=== PATIENT | male | born 1940 | race African-American/Black ===

== ENCOUNTER 2020-04-11 09:16 | Inpatient (IN) ==
[2020-04-11] MEDS ORDERED: ASPIRIN 325 MG TABLET PO STA (09:47)
[2020-04-11] MEDS ORDERED: carvediloL 3.125 MG TABLET PO STA (09:58)
[2020-04-11 10:29] LABS: Basophils % 0.1 % (0.0-0.8); Hematocrit 36.9 VOL% (42.0-52.0); Hemoglobin 11.3 GM/DL (14.0-18.0); Immature Granulocytes % 1.3 %; Immature Granulocytes Absolute 0.11 #; Lymphocytes # 0.5 10*3/uL (1.4-4.0); Lymphocytes % 5.3 % (21.2-54.2); Mean Corpuscular HGB Conc 30.6 GM/DL (32-36); Mean Corpuscular Volume 93.7 FL (87-102); Mean Platelet Volume 9.2 FL (9.6-12.0); Monocytes % 1.1 % (1.7-12.7); Neutrophils % 92.2 % (38.7-73.9); Platelet Count 224 T/CUMM (130-400); Red Blood Count 3.94 MC/CUMM (3.8-5.5); Red Cell Distribution Width 14.6 % (9.3-17.3); White Blood Count 8.5 T/CUMM (4-12)
[2020-04-11 10:55] LABS: Calcium 9.1 MG/DL (8.5-10.1); Osmolality,Calculated 280.4 MOS/KG (273-304)
[2020-04-11] MEDS ORDERED: SODIUM CHLORIDE 0.9% 500 ML IV STA ×2 (11:03→11:41)
[2020-04-11] MEDS ORDERED: CALCIUM GLUCONATE 1,000 MG in SODIUM CHLORIDE 0.9% 100 ML IV ONE ×2 (11:04→16:00)
[2020-04-11 11:10] LABS: Band Neutrophils 3 % (0-10); Hypochromasia 1+; Lymphocytes 6 % (20-55); Metamyelocytes 2 %; Segmented Neutrophils 88 % (50-85); Total Cells Counted 100
[2020-04-11 11:11] LABS: Microcytosis Slight; Platelet Estimate Normal
[2020-04-11] MEDS ORDERED: GLUCAGON 1 MG VIAL IM PRN (11:16)
[2020-04-11] MEDS ORDERED: DEXTROSE 50% 25 GM/50 ML VIAL IV PRN (11:16)
[2020-04-11 11:29] LABS: INR 1.2; PT Patient Result 13.2 SECS (9.8-11.9)
[2020-04-11] MEDS ORDERED: NITROGLYCERIN SL 0.4 MG TABLET SL PRN (11:41)
[2020-04-11] MEDS: ENOXAPARIN 30 MG/0.3 ML SYRINGE SUBCUT SCH (13:10)
[2020-04-11] MEDS ORDERED: NOREPINEPHRINE 4 MG/4 ML VIAL IV ONE ×2 (13:18→13:23)
[2020-04-11] MEDS: NOREPINEPHRINE 8 MG in SODIUM CHLORIDE 0.9% 242 ML IV PRN ×2 (13:40→23:25)
[2020-04-11 14:02] LABS: Osmolality,Calculated 278.2 MOS/KG (273-304)
[2020-04-11] MEDS: INSULIN REGULAR 100 UNIT/ML SUBCUT SCH ×3 (14:13→22:37)
[2020-04-11] MEDS: LEVOFLOXACIN INJ 500 MG in PREMIX 1 EACH IV SCH (18:43)
[2020-04-11] MEDS ORDERED: metFORMIN 500 MG TABLET PO SCH (21:00)
[2020-04-11] MEDS: DOCUSATE SODIUM 100 MG CAPSULE PO SCH (22:37)
[2020-04-12 00:50] LABS: Apearance,Urine CLOUDY (Clear); Bacteria,Urine Occasional /HPF (Few); Bilirubin,Urine Negative (Negative); Blood, Urine Moderate mg/dL (Negative); Glucose,Urine (UA) Negative (Negative); Granular Casts,Urine 4 /LPF (0-1); Hyaline Casts,Urine 4 /LPF (0-3); Ketones,Urine Negative (Negative); Mucus,Urine Occasional /LPF (Occasional); Nitrite,Urine Negative (Negative); Protein,Urine 30 MG/DL; RBC,Urine 4 /HPF (0-4); Red Blood Cell Casts,Urine 1 /LPF (<1); Squamous Epithelial Cell,Urine Occasional /HPF (0-10); Urine Color Yellow (Yellow); WBC,Urine 36 /HPF (0-6)
[2020-04-12 03:16] LABS: Basophils % 0.1 % (0.0-0.8); Hematocrit 28.5 VOL% (42.0-52.0); Immature Granulocytes Absolute 1.36 #; Lymphocytes % 3.6 % (21.2-54.2); Mean Corpuscular HGB Conc 32.6 GM/DL (32-36); Mean Corpuscular Volume 90.8 FL (87-102); Mean Platelet Volume 9.8 FL (9.6-12.0); Monocytes % 5.9 % (1.7-12.7); Neutrophils % 85.4 % (38.7-73.9); Platelet Count 192 T/CUMM (130-400); Red Blood Count 3.14 MC/CUMM (3.8-5.5); Red Cell Distribution Width 14.6 % (9.3-17.3)
[2020-04-12 03:21] LABS: Albumin 2.1 G/DL (3.4-5.0); Bilirubin,Total 1.5 MG/DL (0.2-1.0); Calcium 8.6 MG/DL (8.5-10.1); Osmolality,Calculated 289.7 MOS/KG (273-304); Risk Ratio 1.72; Total Protein 7.2 G/DL (6.4-8.3); VLDL CHOLESTEROL 13.4 MG/DL
[2020-04-12 03:25] LABS: Hemoglobin 9.3 GM/DL (14.0-18.0)
[2020-04-12 04:43] LABS: Barbiturates Screen,Urine Negative (Negative); Benzodiazepines Screen,Urine Negative (Negative); Cannabinoid Screen,Urine Negative (Negative); Opiate Screen,Urine Negative (Negative); Phencyclidine Screen,Urine Negative (Negative)
[2020-04-12 05:17] LABS: Atypical Lymphocytes Few; Band Neutrophils 7 % (0-10); Lymphocytes 6 % (20-55); Metamyelocytes 1 %; Segmented Neutrophils 82 % (50-85); Total Cells Counted 100
[2020-04-12 05:18] LABS: Hypochromasia 1+; Microcytosis Slight; Ovalocytes Slight; Platelet Estimate Adequate
[2020-04-12] MEDS: DOCUSATE SODIUM 100 MG CAPSULE PO SCH ×2 (11:05→20:04)
[2020-04-12] MEDS: GLIMEPIRIDE 2 MG TABLET PO SCH (11:05)
[2020-04-12] MEDS: carvediloL 6.25 MG TABLET PO SCH (11:05)
[2020-04-12] MEDS: ASPIRIN CHEW 81 MG TABLET PO SCH (11:05)
[2020-04-12] MEDS: TAMSULOSIN 0.4 MG CAPSULE PO SCH (11:06)
[2020-04-12] MEDS: PANTOPRAZOLE 40 MG TABLET PO SCH (11:07)
[2020-04-12] MEDS: hydroCHLOROthiazide 12.5 MG CAPSULE PO SCH (11:07)
[2020-04-12] MEDS: ATORVASTATIN 10 MG TABLET PO SCH (11:07)
[2020-04-12] MEDS: INSULIN REGULAR 100 UNIT/ML SUBCUT SCH ×3 (12:04→20:04)
[2020-04-12] MEDS ORDERED: SODIUM CHLORIDE 0.9% 500 ML IV ONE (13:00)
[2020-04-12] MEDS ORDERED: SODIUM CHLORIDE 0.9% 500 ML IV STA (14:11)
[2020-04-12] MEDS ORDERED: VANCOMYCIN INJ 1,500 MG in SODIUM CHLORIDE 0.9% 500 ML IV PRN (14:27)
[2020-04-12] MEDS: ENOXAPARIN 30 MG/0.3 ML SYRINGE SUBCUT SCH (14:55)
[2020-04-12] MEDS ORDERED: VANCOMYCIN INJ 1,500 MG in SODIUM CHLORIDE 0.9% 500 ML IV ONE (15:00)
[2020-04-12] MEDS: SODIUM CHLORIDE 0.9% 1,000 ML IV SCH (15:14)
[2020-04-12] MEDS: MEROPENEM 500 MG in SODIUM CHLORIDE 0.9% 100 ML IV SCH (19:35)
[2020-04-12] MEDS ORDERED: DEXTROSE 10% 250 ML IV ONE (19:37)
[2020-04-12] MEDS: ONDANSETRON 4 MG/2 ML VIAL IV PRN (20:05)
[2020-04-12] MEDS: PROMETHAZINE 25 MG/1 ML VIAL IM PRN (21:10)
[2020-04-13] MEDS: PROMETHAZINE 25 MG/1 ML VIAL IM PRN (03:37)
[2020-04-13] MEDS: ONDANSETRON 4 MG/2 ML VIAL IV PRN (03:37)
[2020-04-13] MEDS ORDERED: ALBUTEROL 2.5 MG/3 ML NEB RESP TX ONE ×2 (03:49→03:51)
[2020-04-13] MEDS ORDERED: MORPHINE 4 MG/1 ML VIAL IV ONE (04:00)
[2020-04-13] MEDS ORDERED: FUROSEMIDE 40 MG/4 ML VIAL IV ONE (04:00)
[2020-04-13] MEDS ORDERED: MORPHINE 4 MG/1 ML VIAL ONE (04:01)
[2020-04-13] MEDS ORDERED: FUROSEMIDE 40 MG/4 ML VIAL ONE (04:01)
[2020-04-13] MEDS: MEROPENEM 500 MG in SODIUM CHLORIDE 0.9% 100 ML IV SCH ×3 (04:23→20:20)
[2020-04-13 05:58] LABS: Calcium 8.4 MG/DL (8.5-10.1); Osmolality,Calculated 294.5 MOS/KG (273-304)
[2020-04-13 06:03] LABS: Calcium 8.4 MG/DL (8.5-10.1); Osmolality,Calculated 290.8 MOS/KG (273-304)
[2020-04-13] MEDS ORDERED: BISACODYL 10 MG SUPP RECTAL ONE (09:12)
[2020-04-13] MEDS: INSULIN REGULAR 100 UNIT/ML SUBCUT SCH ×4 (09:51→20:32)
[2020-04-13] MEDS: hydroCHLOROthiazide 12.5 MG CAPSULE PO SCH (09:52)
[2020-04-13] MEDS: SODIUM CHLORIDE 0.9% 1,000 ML IV SCH ×2 (11:05→14:40)
[2020-04-13 11:37] LABS: ABG Base Excess -2.9 MMOL/L (-2.5-2.5); ABG HCO3 19.9 MMOL/L (20-26); ABG Oxygen Saturation 99.1 % (95-100); ABG PCO2 27.4 MM HG (35-48); ABG PH 7.478 (7.35-7.45); ABG PO2 371.7 MM HG (80-95); ABG TCO2 20.7 MMOL/L (23-27)
[2020-04-13] MEDS ORDERED: NOREPINEPHRINE 4 MG/4 ML VIAL IV ONE (12:56)
[2020-04-13] MEDS: NOREPINEPHRINE 8 MG in SODIUM CHLORIDE 0.9% 242 ML IV PRN ×2 (13:01→20:28)
[2020-04-13] MEDS ORDERED: SODIUM CHLORIDE 0.9% 1,000 ML IV ONE (13:01)
[2020-04-13] MEDS ORDERED: ETOMIDATE 20 MG/10 ML VIAL IV ONE ×2 (13:44→17:00)
[2020-04-13] MEDS ORDERED: SUCCINYLCHOLINE 200 MG/10 ML VIAL ONE (13:45)
[2020-04-13 13:58] LABS: INR 1.2; PT Patient Result 12.4 SECS (9.8-11.9); Partial Thromboplastin Time 32.1 SECS (23.9-33.8)
[2020-04-13 14:11] LABS: Albumin 1.8 G/DL (3.4-5.0); Bilirubin,Total 0.8 MG/DL (0.2-1.0); Osmolality,Calculated 292.7 MOS/KG (273-304); Total Protein 5.6 G/DL (6.4-8.3)
[2020-04-13] MEDS ORDERED: MAGNESIUM SULF RIDER 2 GM in PREMIX 1 EACH IV ONE (14:43)
[2020-04-13] MEDS ORDERED: SEVOFLURANE 1 UNIT/15 MINUTE INH ONE (15:55)
[2020-04-13] MEDS ORDERED: fentaNYL 100 MCG/2 ML VIAL ONE (15:55)
[2020-04-13] MEDS ORDERED: PHENYLEPHRINE 10 MG/1 ML VIAL IV ONE (15:55)
[2020-04-13] MEDS ORDERED: LIDOCAINE 2% 5 ML VIAL ONE (15:55)
[2020-04-13] MEDS ORDERED: MIDAZOLAM 2 MG/2 ML VIAL ONE (15:55)
[2020-04-13] MEDS ORDERED: PHENYLEPHRINE 1 MG/10 ML SYRINGE IV ONE (15:55)
[2020-04-13] MEDS ORDERED: SODIUM CHLORIDE 0.9% 250 ML IV ONE (15:56)
[2020-04-13] MEDS ORDERED: ROCURONIUM 100 MG/10 ML VIAL IV ONE (15:56)
[2020-04-13] MEDS: DOCUSATE SODIUM 100 MG CAPSULE PO SCH ×2 (16:26→20:20)
[2020-04-13] MEDS: TAMSULOSIN 0.4 MG CAPSULE PO SCH (16:26)
[2020-04-13] MEDS: PANTOPRAZOLE 40 MG TABLET PO SCH (16:26)
[2020-04-13] MEDS: GLIMEPIRIDE 2 MG TABLET PO SCH (16:26)
[2020-04-13] MEDS: ATORVASTATIN 10 MG TABLET PO SCH (16:26)
[2020-04-13 16:42] LABS: ABG Base Excess -4.9 MMOL/L (-2.5-2.5); ABG HCO3 20.3 MMOL/L (20-26); ABG Oxygen Saturation 92.8 % (95-100); ABG PCO2 33.8 MM HG (35-48); ABG PH 7.373 (7.35-7.45); ABG PO2 69.6 MM HG (80-95); Allen Test Positive; Pt O2 Delivery Device Ventilator
[2020-04-13] MEDS ORDERED: SODIUM CHLORIDE 0.9% 500 ML IV ONE (16:59)
[2020-04-13] MEDS ORDERED: SUCCINYLCHOLINE 200 MG/10 ML VIAL IV ONE (17:00)
[2020-04-13] MEDS: ASPIRIN CHEW 81 MG TABLET PO SCH (17:01)
[2020-04-13] MEDS: carvediloL 6.25 MG TABLET PO SCH (17:02)
[2020-04-13] MEDS: ENOXAPARIN 30 MG/0.3 ML SYRINGE SUBCUT SCH (17:02)
[2020-04-13] MEDS: LEVOFLOXACIN INJ 500 MG in PREMIX 1 EACH IV SCH (17:47)
[2020-04-13] MEDS ORDERED: SODIUM CHLORIDE 0.9% 2,000 ML IV ONE (19:01)
[2020-04-13] MEDS: HYDROmorphone 2 MG/1 ML VIAL IV PRN ×2 (19:10→22:36)
[2020-04-14] MEDS: NOREPINEPHRINE 8 MG in SODIUM CHLORIDE 0.9% 242 ML IV PRN ×3 (01:33→16:31)
[2020-04-14] MEDS: MEROPENEM 500 MG in SODIUM CHLORIDE 0.9% 100 ML IV SCH ×3 (03:28→20:36)
[2020-04-14 03:38] LABS: Basophils % 0.2 % (0.0-0.8); Hematocrit 27.2 VOL% (42.0-52.0); Hemoglobin 8.6 GM/DL (14.0-18.0); Immature Granulocytes % 0.7 %; Immature Granulocytes Absolute 0.11 #; Lymphocytes # 0.5 10*3/uL (1.4-4.0); Lymphocytes % 2.8 % (21.2-54.2); Mean Corpuscular HGB Conc 31.6 GM/DL (32-36); Mean Corpuscular Volume 91.6 FL (87-102); Neutrophils % 92.3 % (38.7-73.9); Red Blood Count 2.97 MC/CUMM (3.8-5.5); Red Cell Distribution Width 14.9 % (9.3-17.3); White Blood Count 16.9 T/CUMM (4-12)
[2020-04-14 03:40] LABS: Platelet Count 129 T/CUMM (130-400)
[2020-04-14] MEDS: SODIUM CHLORIDE 0.9% 1,000 ML IV SCH (04:14)
[2020-04-14 04:22] LABS: ABG Base Excess -8.2 MMOL/L (-2.5-2.5); ABG HCO3 16.6 MMOL/L (20-26); ABG PCO2 32.6 MM HG (35-48); ABG PH 7.325 (7.35-7.45); ABG PO2 58.5 MM HG (80-95); ABG TCO2 17.6 MMOL/L (23-27); Allen Test Positive; Pt O2 Delivery Device Ventilator
[2020-04-14 04:23] LABS: Band Neutrophils 1 % (0-10); Lymphocytes 4 % (20-55); Segmented Neutrophils 91 % (50-85); Total Cells Counted 100
[2020-04-14 04:23] LABS: ABG Oxygen Saturation 88.8 % (95-100)
[2020-04-14 04:24] LABS: Burr Cells Slight; Hypochromasia 1+; Ovalocytes Slight
[2020-04-14 04:25] LABS: Microcytosis Slight
[2020-04-14 04:27] LABS: Albumin 1.6 G/DL (3.4-5.0); Bilirubin,Total 1.4 MG/DL (0.2-1.0); Calcium 7.4 MG/DL (8.5-10.1); Osmolality,Calculated 293.4 MOS/KG (273-304); Total Protein 6.1 G/DL (6.4-8.3)
[2020-04-14] MEDS: HYDROmorphone 2 MG/1 ML VIAL IV PRN ×3 (05:07→23:45)
[2020-04-14] MEDS: INSULIN REGULAR 100 UNIT/ML SUBCUT SCH ×4 (07:36→20:10)
[2020-04-14] MEDS: ACETAMINOPHEN 325 MG TABLET PO PRN (07:51)
[2020-04-14] MEDS: ASPIRIN CHEW 81 MG TABLET PO SCH (08:09)
[2020-04-14] MEDS: GLIMEPIRIDE 2 MG TABLET PO SCH (08:09)
[2020-04-14] MEDS: ATORVASTATIN 10 MG TABLET PO SCH (08:11)
[2020-04-14] MEDS: DOCUSATE SODIUM 100 MG CAPSULE PO SCH ×2 (08:11→20:36)
[2020-04-14] MEDS: TAMSULOSIN 0.4 MG CAPSULE PO SCH (08:11)
[2020-04-14] MEDS: PANTOPRAZOLE 40 MG VIAL IV SCH (08:12)
[2020-04-14] MEDS ORDERED: ALBUMIN 25% 25 GM in PREMIX 1 EACH IV ONE (08:14)
[2020-04-14] MEDS: METOPROLOL TARTRATE 5 MG/5 ML VIAL IV SCH ×3 (08:44→15:36)
[2020-04-14] MEDS ORDERED: LORazepam 2 MG/1 ML VIAL IV ONE (10:23)
[2020-04-14] MEDS: HYDROCORTISONE 100 MG VIAL IV SCH ×2 (10:41→18:25)
[2020-04-14] MEDS ORDERED: VANCOMYCIN INJ 1,500 MG in SODIUM CHLORIDE 0.9% 500 ML IV ONE (12:00)
[2020-04-14] MEDS ORDERED: METOPROLOL TARTRATE 5 MG/5 ML VIAL IV SCH (12:00)
[2020-04-14] MEDS: ENOXAPARIN 30 MG/0.3 ML SYRINGE SUBCUT SCH (13:30)
[2020-04-14] MEDS: SODIUM BICARB INJ 50 MEQ in SODIUM CHLORIDE 0.45% 1,000 ML IV SCH (14:27)
[2020-04-14] MEDS ORDERED: SODIUM CHLORIDE 0.9% 2,000 ML IV ONE (18:32)
[2020-04-15] MEDS: SODIUM CHLORIDE 0.9% 1,000 ML IV PRN ×2 (01:05→04:53)
[2020-04-15] MEDS: HYDROCORTISONE 100 MG VIAL IV SCH ×3 (03:10→18:52)
[2020-04-15] MEDS: MEROPENEM 500 MG in SODIUM CHLORIDE 0.9% 100 ML IV SCH ×3 (03:10→19:13)
[2020-04-15 03:37] LABS: Basophils % 0.1 % (0.0-0.8); Hematocrit 24.8 VOL% (42.0-52.0); Hemoglobin 7.6 GM/DL (14.0-18.0); Immature Granulocytes % 1.8 %; Immature Granulocytes Absolute 0.28 #; Lymphocytes # 0.7 10*3/uL (1.4-4.0); Lymphocytes % 4.7 % (21.2-54.2); Mean Corpuscular HGB Conc 30.6 GM/DL (32-36); Mean Corpuscular Volume 92.5 FL (87-102); Mean Platelet Volume 10.2 FL (9.6-12.0); Monocytes % 3.4 % (1.7-12.7); Red Blood Count 2.68 MC/CUMM (3.8-5.5); White Blood Count 15.9 T/CUMM (4-12)
[2020-04-15 03:42] LABS: ABG HCO3 15.7 MMOL/L (20-26); ABG Oxygen Saturation 99.4 % (95-100); ABG PCO2 31.9 MM HG (35-48); ABG PH 7.277 (7.35-7.45); ABG TCO2 13.9 MMOL/L (23-27)
[2020-04-15 03:42] LABS: Platelet Count 95 T/CUMM (130-400)
[2020-04-15 04:01] LABS: Albumin 1.6 G/DL (3.4-5.0); Bilirubin,Total 1.5 MG/DL (0.2-1.0); Calcium 6.7 MG/DL (8.5-10.1); Osmolality,Calculated 302.8 MOS/KG (273-304); Total Protein 5.4 G/DL (6.4-8.3)
[2020-04-15] MEDS: SODIUM BICARB INJ 50 MEQ in SODIUM CHLORIDE 0.45% 1,000 ML IV SCH (04:20)
[2020-04-15] MEDS: NOREPINEPHRINE 8 MG in SODIUM CHLORIDE 0.9% 242 ML IV PRN ×2 (04:22→17:28)
[2020-04-15 04:41] LABS: Band Neutrophils 3 % (0-10); Lymphocytes 2 % (20-55); Platelet Estimate Decreased; Segmented Neutrophils 91 % (50-85); Total Cells Counted 100
[2020-04-15 04:42] LABS: Acanthocytes Few; Hypochromasia 1+; Microcytosis Slight
[2020-04-15] MEDS: LORazepam 2 MG/1 ML VIAL IV PRN ×3 (07:46→19:56)
[2020-04-15] MEDS ORDERED: MAGNESIUM SULF RIDER 2 GM in PREMIX 1 EACH IV ONE (07:47)
[2020-04-15] MEDS ORDERED: POTASSIUM CHLORIDE 20 MEQ TABLET PO ONE (07:47)
[2020-04-15] MEDS ORDERED: SODIUM BICARBONATE 50 MEQ/50 ML VIAL IV ONE (08:30)
[2020-04-15] MEDS: PANTOPRAZOLE 40 MG VIAL IV SCH (08:40)
[2020-04-15] MEDS: ATORVASTATIN 10 MG TABLET PO SCH (08:40)
[2020-04-15] MEDS: TAMSULOSIN 0.4 MG CAPSULE PO SCH (08:40)
[2020-04-15] MEDS: ASPIRIN CHEW 81 MG TABLET PO SCH (08:40)
[2020-04-15] MEDS: DOCUSATE SODIUM 100 MG CAPSULE PO SCH ×2 (08:40→20:00)
[2020-04-15] MEDS: GLIMEPIRIDE 2 MG TABLET PO SCH (08:40)
[2020-04-15] MEDS: INSULIN REGULAR 100 UNIT/ML SUBCUT SCH ×4 (08:52→19:24)
[2020-04-15] MEDS: HYDROmorphone 2 MG/1 ML VIAL IV PRN (10:51)
[2020-04-15] MEDS: ENOXAPARIN 30 MG/0.3 ML SYRINGE SUBCUT SCH (12:05)
[2020-04-15 13:48] LABS: Albumin 1.6 G/DL (3.4-5.0); Calcium 7.3 MG/DL (8.5-10.1); Osmolality,Calculated 305.8 MOS/KG (273-304); Total Protein 5.8 G/DL (6.4-8.3)
[2020-04-15] MEDS: SODIUM CHLORIDE 23.4% CONC INJ 38.5 MEQ, SODIUM BICARB INJ 100 MEQ in STERILE WATER INJ... IV SCH (14:26)
[2020-04-15] MEDS: HEPARIN/NACL 0.9% 2 UNITS/ML 500 ML IV SCH (17:27)
[2020-04-15] MEDS: LEVOFLOXACIN INJ 500 MG in PREMIX 1 EACH IV SCH (17:43)
[2020-04-15] MEDS: SODIUM CHLORIDE 0.9% 1,000 ML IV SCH (19:24)
[2020-04-16] MEDS: LORazepam 2 MG/1 ML VIAL IV PRN ×4 (00:20→20:00)
[2020-04-16] MEDS: INSULIN REGULAR 100 UNIT/ML SUBCUT SCH ×4 (00:25→19:01)
[2020-04-16] MEDS: SODIUM CHLORIDE 23.4% CONC INJ 38.5 MEQ, SODIUM BICARB INJ 100 MEQ in STERILE WATER INJ... IV SCH (01:57)
[2020-04-16] MEDS ORDERED: LORazepam 2 MG/1 ML VIAL ONE (04:02)
[2020-04-16] MEDS: HYDROCORTISONE 100 MG VIAL IV SCH ×3 (04:03→19:01)
[2020-04-16] MEDS: MEROPENEM 500 MG in SODIUM CHLORIDE 0.9% 100 ML IV SCH ×3 (04:12→19:45)
[2020-04-16 04:31] LABS: Basophils % 0.1 % (0.0-0.8); Hematocrit 25.5 VOL% (42.0-52.0); Hemoglobin 8.2 GM/DL (14.0-18.0); Immature Granulocytes % 4.5 %; Immature Granulocytes Absolute 0.86 #; Lymphocytes # 1.1 10*3/uL (1.4-4.0); Lymphocytes % 5.5 % (21.2-54.2); Mean Corpuscular HGB Conc 32.2 GM/DL (32-36); Mean Corpuscular Volume 88.2 FL (87-102); Mean Platelet Volume 10.4 FL (9.6-12.0); Monocytes % 5.5 % (1.7-12.7); Neutrophils % 84.4 % (38.7-73.9); Red Blood Count 2.89 MC/CUMM (3.8-5.5); Red Cell Distribution Width 15.3 % (9.3-17.3)
[2020-04-16 04:35] LABS: Platelet Count 93 T/CUMM (130-400)
[2020-04-16 04:58] LABS: Albumin 1.5 G/DL (3.4-5.0); Bilirubin,Total 0.7 MG/DL (0.2-1.0); Calcium 7.6 MG/DL (8.5-10.1); Osmolality,Calculated 306.8 MOS/KG (273-304); Total Protein 5.2 G/DL (6.4-8.3)
[2020-04-16 05:00] LABS: Prealbumin 5.9 MG/DL (20-40)
[2020-04-16 06:16] LABS: ABG HCO3 24.5 MMOL/L (20-26); ABG Oxygen Saturation 99.4 % (95-100); ABG PCO2 30.1 MM HG (35-48); ABG PH 7.489 (7.35-7.45); ABG TCO2 21.2 MMOL/L (23-27)
[2020-04-16 06:46] LABS: Band Neutrophils 4 % (0-10); Hypochromasia 1+; Lymphocytes 8 % (20-55); Platelet Estimate Decreased; Segmented Neutrophils 81 % (50-85); Total Cells Counted 100
[2020-04-16 08:51] LABS: Apearance,Urine CLOUDY (Clear); Bilirubin,Urine Negative (Negative); Blood, Urine Large mg/dL (Negative); Glucose,Urine (UA) 50 mg/dL (Negative); Ketones,Urine Negative (Negative); Nitrite,Urine Negative (Negative); Protein,Urine 100 MG/DL; RBC,Urine 223 /HPF (0-4); Urine Color Amber (Yellow); Urine Specific Gravity 1.013 (1.001-1.035); WBC,Urine 112 /HPF (0-6)
[2020-04-16] MEDS: DOCUSATE SODIUM 100 MG CAPSULE PO SCH ×2 (09:17→20:07)
[2020-04-16] MEDS: GLIMEPIRIDE 2 MG TABLET PO SCH (09:17)
[2020-04-16] MEDS: ATORVASTATIN 10 MG TABLET PO SCH (09:17)
[2020-04-16] MEDS: PANTOPRAZOLE 40 MG VIAL IV SCH (09:18)
[2020-04-16] MEDS: ASPIRIN CHEW 81 MG TABLET PO SCH (09:18)
[2020-04-16] MEDS: TAMSULOSIN 0.4 MG CAPSULE PO SCH (09:18)
[2020-04-16] MEDS: ENOXAPARIN 30 MG/0.3 ML SYRINGE SUBCUT SCH (11:30)
[2020-04-16] MEDS ORDERED: POTASSIUM CHLORIDE 20 MEQ/15 ML UDCUP PER TUBE ONE (12:59)
[2020-04-16] MEDS ORDERED: POTASSIUM CHLORIDE 20 MEQ/15 ML UDCUP PER TUBE PRN (12:59)
[2020-04-16] MEDS: SODIUM BICARB INJ 50 MEQ, POTASSIUM CHLORIDE INJ 20 MEQ in SODIUM CHLORIDE 0.45% 1,000 ML IV SCH (13:19)
[2020-04-16] MEDS: HEPARIN/NACL 0.9% 2 UNITS/ML 500 ML IV SCH (16:57)
[2020-04-17] MEDS: INSULIN REGULAR 100 UNIT/ML SUBCUT SCH ×4 (00:42→19:40)
[2020-04-17] MEDS: HYDROCORTISONE 100 MG VIAL IV SCH ×2 (03:50→11:35)
[2020-04-17] MEDS: SODIUM BICARB INJ 50 MEQ, POTASSIUM CHLORIDE INJ 20 MEQ in SODIUM CHLORIDE 0.45% 1,000 ML IV SCH ×2 (03:57→18:13)
[2020-04-17] MEDS: MEROPENEM 500 MG in SODIUM CHLORIDE 0.9% 100 ML IV SCH ×3 (03:57→21:52)
[2020-04-17] MEDS: LORazepam 2 MG/1 ML VIAL IV PRN (03:59)
[2020-04-17 06:07] LABS: ABG Base Excess 1.3 MMOL/L (-2.5-2.5); ABG HCO3 24.3 MMOL/L (20-26); ABG Oxygen Saturation 96.3 % (95-100); ABG PH 7.498 (7.35-7.45); ABG PO2 89.9 MM HG (80-95); ABG TCO2 25.3 MMOL/L (23-27)
[2020-04-17 06:14] LABS: Basophils % 0.2 % (0.0-0.8); Hematocrit 25.8 VOL% (42.0-52.0); Hemoglobin 8.2 GM/DL (14.0-18.0); Immature Granulocytes % 3.9 %; Immature Granulocytes Absolute 0.74 #; Lymphocytes # 1.2 10*3/uL (1.4-4.0); Lymphocytes % 6.5 % (21.2-54.2); Mean Corpuscular HGB Conc 31.8 GM/DL (32-36); Mean Corpuscular Volume 89.9 FL (87-102); Mean Platelet Volume 11.2 FL (9.6-12.0); Monocytes % 5.5 % (1.7-12.7); Neutrophils % 83.9 % (38.7-73.9); Platelet Count 85 T/CUMM (130-400); Red Blood Count 2.87 MC/CUMM (3.8-5.5); Red Cell Distribution Width 15.4 % (9.3-17.3)
[2020-04-17 06:27] LABS: Albumin 1.4 G/DL (3.4-5.0); Bilirubin,Total 0.6 MG/DL (0.2-1.0); Calcium 7.6 MG/DL (8.5-10.1); Total Protein 5.2 G/DL (6.4-8.3)
[2020-04-17 06:44] LABS: Hypochromasia 2+; Lymphocytes 3 % (20-55); Microcytosis 1+; Ovalocytes Slight; Platelet Estimate Decreased; Segmented Neutrophils 88 % (50-85); Total Cells Counted 100
[2020-04-17] MEDS: PANTOPRAZOLE 40 MG VIAL IV SCH (08:33)
[2020-04-17] MEDS: DOCUSATE SODIUM 100 MG CAPSULE PO SCH ×2 (08:35→21:52)
[2020-04-17] MEDS: GLIMEPIRIDE 2 MG TABLET PO SCH (08:35)
[2020-04-17] MEDS: ASPIRIN CHEW 81 MG TABLET PO SCH (08:36)
[2020-04-17] MEDS: ATORVASTATIN 10 MG TABLET PO SCH (08:36)
[2020-04-17] MEDS: TAMSULOSIN 0.4 MG CAPSULE PO SCH (09:00)
[2020-04-17] MEDS: amLODIPine 5 MG TABLET PO SCH (09:00)
[2020-04-17] MEDS: DEXTROSE 5% 1,000 ML IV SCH (10:05)
[2020-04-17] MEDS: ENOXAPARIN 30 MG/0.3 ML SYRINGE SUBCUT SCH (11:41)
[2020-04-17] MEDS: POTASSIUM CHLORIDE 20 MEQ/15 ML UDCUP PER TUBE PRN ×2 (15:14→21:52)
[2020-04-17] MEDS: LEVOFLOXACIN INJ 500 MG in PREMIX 1 EACH IV SCH (18:00)
[2020-04-18] MEDS: INSULIN REGULAR 100 UNIT/ML SUBCUT SCH ×5 (00:41→23:35)
[2020-04-18] MEDS: HYDROCORTISONE 100 MG VIAL IV SCH ×2 (00:41→12:41)
[2020-04-18] MEDS: POTASSIUM CHLORIDE 20 MEQ/15 ML UDCUP PER TUBE PRN ×4 (00:48→10:45)
[2020-04-18] MEDS: MEROPENEM 500 MG in SODIUM CHLORIDE 0.9% 100 ML IV SCH ×3 (03:40→20:40)
[2020-04-18 03:46] LABS: ABG Base Excess 2.8 MMOL/L (-2.5-2.5); ABG HCO3 26.9 MMOL/L (20-26); ABG PCO2 33.7 MM HG (35-48); ABG PH 7.494 (7.35-7.45); ABG PO2 98.4 MM HG (80-95); ABG TCO2 23.9 MMOL/L (23-27)
[2020-04-18 03:57] LABS: Basophils % 0.2 % (0.0-0.8); Eosinophils % 0.1 % (0.00-10.9); Hematocrit 25.5 VOL% (42.0-52.0); Hemoglobin 7.9 GM/DL (14.0-18.0); Immature Granulocytes % 6.6 %; Immature Granulocytes Absolute 1.16 #; Lymphocytes # 1.1 10*3/uL (1.4-4.0); Lymphocytes % 5.9 % (21.2-54.2); Mean Corpuscular Volume 91.7 FL (87-102); Mean Platelet Volume 11.6 FL (9.6-12.0); Monocytes % 5.7 % (1.7-12.7); Neutrophils % 81.5 % (38.7-73.9); Platelet Count 92 T/CUMM (130-400); Red Blood Count 2.78 MC/CUMM (3.8-5.5); Red Cell Distribution Width 15.3 % (9.3-17.3); White Blood Count 17.7 T/CUMM (4-12)
[2020-04-18 04:17] LABS: Albumin 1.4 G/DL (3.4-5.0); Bilirubin,Total 0.5 MG/DL (0.2-1.0); Calcium 7.6 MG/DL (8.5-10.1); Osmolality,Calculated 308.4 MOS/KG (273-304)
[2020-04-18] MEDS: DEXTROSE 5% 1,000 ML IV SCH ×4 (05:52→15:53)
[2020-04-18] MEDS: PANTOPRAZOLE 40 MG VIAL IV SCH (08:22)
[2020-04-18] MEDS: GLIMEPIRIDE 2 MG TABLET PO SCH (08:23)
[2020-04-18] MEDS: ASPIRIN CHEW 81 MG TABLET PO SCH (08:24)
[2020-04-18] MEDS: amLODIPine 5 MG TABLET PO SCH (08:25)
[2020-04-18] MEDS: ATORVASTATIN 10 MG TABLET PO SCH (08:25)
[2020-04-18] MEDS: DOCUSATE SODIUM 100 MG CAPSULE PO SCH ×2 (08:30→20:40)
[2020-04-18 10:43] LABS: Atypical Lymphocytes Few; Band Neutrophils 2 % (0-10); Hypochromasia 2+; Lymphocytes 7 % (20-55); Metamyelocytes 2 %; Myelocytes 1 %; Platelet Estimate Adequate; Polychromasia Slight; Segmented Neutrophils 82 % (50-85); Total Cells Counted 100
[2020-04-18] MEDS: ENOXAPARIN 30 MG/0.3 ML SYRINGE SUBCUT SCH (12:39)
[2020-04-19 03:55] LABS: ABG Base Excess 3.4 MMOL/L (-2.5-2.5); ABG HCO3 27.5 MMOL/L (20-26); ABG Oxygen Saturation 98.7 % (95-100); ABG PCO2 35.9 MM HG (35-48); ABG PH 7.481 (7.35-7.45); ABG TCO2 24.1 MMOL/L (23-27)
[2020-04-19 03:57] LABS: Basophils % 0.1 % (0.0-0.8); Eosinophils % 0.2 % (0.00-10.9); Hematocrit 23.1 VOL% (42.0-52.0); Hemoglobin 7.2 GM/DL (14.0-18.0); Immature Granulocytes % 7.2 %; Immature Granulocytes Absolute 1.25 #; Lymphocytes # 1.4 10*3/uL (1.4-4.0); Mean Corpuscular HGB Conc 31.2 GM/DL (32-36); Mean Corpuscular Volume 92.8 FL (87-102); Mean Platelet Volume 11.8 FL (9.6-12.0); Monocytes % 5.3 % (1.7-12.7); NRBC # 0.02 10*3/uL; Neutrophils % 79.2 % (38.7-73.9); Platelet Count 115 T/CUMM (130-400); Red Blood Count 2.49 MC/CUMM (3.8-5.5); Red Cell Distribution Width 15.6 % (9.3-17.3); White Blood Count 17.5 T/CUMM (4-12)
[2020-04-19 04:16] LABS: Calcium 7.6 MG/DL (8.5-10.1); Osmolality,Calculated 314.7 MOS/KG (273-304)
[2020-04-19] MEDS: MEROPENEM 500 MG in SODIUM CHLORIDE 0.9% 100 ML IV SCH ×3 (05:12→20:26)
[2020-04-19 05:49] LABS: Lymphocytes 7 % (20-55); Segmented Neutrophils 88 % (50-85); Total Cells Counted 100
[2020-04-19 05:50] LABS: Anisocytosis 1+; Ovalocytes 1+; Platelet Estimate Adequate
[2020-04-19] MEDS: INSULIN REGULAR 100 UNIT/ML SUBCUT SCH ×3 (06:31→18:19)
[2020-04-19] MEDS: PANTOPRAZOLE 40 MG VIAL IV SCH (08:16)
[2020-04-19] MEDS: GLIMEPIRIDE 2 MG TABLET PO SCH (08:17)
[2020-04-19] MEDS: ASPIRIN CHEW 81 MG TABLET PO SCH (08:17)
[2020-04-19] MEDS: amLODIPine 5 MG TABLET PO SCH (08:17)
[2020-04-19] MEDS: ATORVASTATIN 10 MG TABLET PO SCH (08:17)
[2020-04-19] MEDS: HYDROCORTISONE 100 MG VIAL IV SCH (08:18)
[2020-04-19] MEDS: DOCUSATE SODIUM 100 MG CAPSULE PO SCH ×2 (08:27→20:26)
[2020-04-19] MEDS ORDERED: FUROSEMIDE 40 MG/4 ML VIAL IV ONE (08:49)
[2020-04-19] MEDS: hydrALAZINE 20 MG/1 ML VIAL IV PRN (14:41)
[2020-04-20] MEDS: INSULIN REGULAR 100 UNIT/ML SUBCUT SCH ×5 (01:19→23:22)
[2020-04-20] MEDS: MEROPENEM 500 MG in SODIUM CHLORIDE 0.9% 100 ML IV SCH ×3 (03:31→20:59)
[2020-04-20 05:35] LABS: Basophils # 0.1 10*3/uL (0.0-0.2); Basophils % 0.3 % (0.0-0.8); Eosinophils # 0.2 10*3/uL (0.0-0.87); Eosinophils % 1.3 % (0.00-10.9); Hemoglobin 7.7 GM/DL (14.0-18.0); Immature Granulocytes Absolute 1.12 #; Lymphocytes # 1.8 10*3/uL (1.4-4.0); Lymphocytes % 9.6 % (21.2-54.2); Mean Corpuscular HGB Conc 30.8 GM/DL (32-36); Mean Corpuscular Volume 92.3 FL (87-102); Mean Platelet Volume 11.4 FL (9.6-12.0); Monocytes % 5.5 % (1.7-12.7); NRBC # 0.02 10*3/uL; Neutrophils % 77.3 % (38.7-73.9); Platelet Count 177 T/CUMM (130-400); Red Blood Count 2.71 MC/CUMM (3.8-5.5); Red Cell Distribution Width 15.9 % (9.3-17.3); White Blood Count 18.6 T/CUMM (4-12)
[2020-04-20 05:43] LABS: ABG Base Excess 5.6 MMOL/L (-2.5-2.5); ABG HCO3 29.1 MMOL/L (20-26); ABG Oxygen Saturation 95.6 % (95-100); ABG PCO2 37.7 MM HG (35-48); ABG PH 7.505 (7.35-7.45); ABG PO2 80.2 MM HG (80-95); ABG TCO2 30.2 MMOL/L (23-27)
[2020-04-20 05:48] LABS: Calcium 8.1 MG/DL (8.5-10.1); Osmolality,Calculated 302.4 MOS/KG (273-304)
[2020-04-20 05:58] LABS: Eosinophils 2 % (0-10); Hypochromasia 1+; Lymphocytes 10 % (20-55); Polychromasia Slight; Segmented Neutrophils 83 % (50-85); Total Cells Counted 100
[2020-04-20 05:59] LABS: Microcytosis 1+; Platelet Estimate Adequate; Target Cells Slight
[2020-04-20] MEDS: GLIMEPIRIDE 2 MG TABLET PO SCH (08:46)
[2020-04-20] MEDS: PANTOPRAZOLE 40 MG VIAL IV SCH (08:46)
[2020-04-20] MEDS: HYDROCORTISONE 100 MG VIAL IV SCH (08:46)
[2020-04-20] MEDS: DOCUSATE SODIUM 100 MG CAPSULE PO SCH ×2 (08:47→21:01)
[2020-04-20] MEDS: ATORVASTATIN 10 MG TABLET PO SCH (08:47)
[2020-04-20] MEDS: ASPIRIN CHEW 81 MG TABLET PO SCH (08:48)
[2020-04-20] MEDS: amLODIPine 5 MG TABLET PO SCH (09:00)
[2020-04-21] MEDS: MEROPENEM 500 MG in SODIUM CHLORIDE 0.9% 100 ML IV SCH ×4 (02:29→20:25)
[2020-04-21 03:53] LABS: ABG Base Excess 5.2 MMOL/L (-2.5-2.5); ABG HCO3 29.2 MMOL/L (20-26); ABG Oxygen Saturation 98.7 % (95-100); ABG PCO2 40.3 MM HG (35-48); ABG TCO2 27.9 MMOL/L (23-27); Allen Test Positive
[2020-04-21 04:50] LABS: Basophils % 0.1 % (0.0-0.8); Eosinophils # 0.3 10*3/uL (0.0-0.87); Hematocrit 21.8 VOL% (42.0-52.0); Hemoglobin 6.6 GM/DL (14.0-18.0); Immature Granulocytes % 5.2 %; Immature Granulocytes Absolute 0.72 #; Lymphocytes # 1.5 10*3/uL (1.4-4.0); Lymphocytes % 10.9 % (21.2-54.2); Mean Corpuscular HGB Conc 30.3 GM/DL (32-36); Mean Platelet Volume 10.9 FL (9.6-12.0); Monocytes % 4.7 % (1.7-12.7); Neutrophils % 77.1 % (38.7-73.9); Platelet Count 197 T/CUMM (130-400); Red Blood Count 2.32 MC/CUMM (3.8-5.5); Red Cell Distribution Width 15.9 % (9.3-17.3); White Blood Count 13.7 T/CUMM (4-12)
[2020-04-21 05:19] LABS: Band Neutrophils 2 % (0-10); Eosinophils 2 % (0-10); Hypochromasia 1+; Lymphocytes 6 % (20-55); Metamyelocytes 2 %; Segmented Neutrophils 86 % (50-85); Total Cells Counted 100
[2020-04-21 05:20] LABS: Microcytosis 1+; Ovalocytes Slight; Platelet Estimate Adequate
[2020-04-21 05:24] LABS: Calcium 8.1 MG/DL (8.5-10.1); Osmolality,Calculated 303.3 MOS/KG (273-304)
[2020-04-21] MEDS: INSULIN REGULAR 100 UNIT/ML SUBCUT SCH ×3 (05:35→18:41)
[2020-04-21] MEDS: POTASSIUM CHLORIDE 20 MEQ/15 ML UDCUP PER TUBE PRN ×3 (06:07→15:40)
[2020-04-21] MEDS ORDERED: SODIUM CHLORIDE 0.9% 1,000 ML IV PRN (06:50)
[2020-04-21] MEDS: GLIMEPIRIDE 2 MG TABLET PO SCH (08:53)
[2020-04-21] MEDS: DOCUSATE SODIUM 100 MG CAPSULE PO SCH ×2 (08:53→20:29)
[2020-04-21] MEDS: ATORVASTATIN 10 MG TABLET PO SCH (08:53)
[2020-04-21] MEDS: HYDROCORTISONE 100 MG VIAL IV SCH (08:54)
[2020-04-21] MEDS: PANTOPRAZOLE 40 MG VIAL IV SCH (08:54)
[2020-04-21] MEDS: amLODIPine 5 MG TABLET PO SCH (08:54)
[2020-04-21 18:11] LABS: Hematocrit 28.7 VOL% (42.0-52.0); Hemoglobin 8.9 GM/DL (14.0-18.0)
[2020-04-22] MEDS: INSULIN REGULAR 100 UNIT/ML SUBCUT SCH ×4 (00:27→18:33)
[2020-04-22] MEDS: MEROPENEM 500 MG in SODIUM CHLORIDE 0.9% 100 ML IV SCH ×4 (01:12→20:48)
[2020-04-22 04:35] LABS: Basophils % 0.1 % (0.0-0.8); Eosinophils # 0.2 10*3/uL (0.0-0.87); Eosinophils % 1.5 % (0.00-10.9); Hematocrit 25.4 VOL% (42.0-52.0); Immature Granulocytes % 3.7 %; Lymphocytes # 1.6 10*3/uL (1.4-4.0); Lymphocytes % 9.6 % (21.2-54.2); Mean Corpuscular HGB Conc 31.5 GM/DL (32-36); Mean Corpuscular Volume 91.4 FL (87-102); Mean Platelet Volume 10.8 FL (9.6-12.0); Monocytes % 5.6 % (1.7-12.7); NRBC # 0.02 10*3/uL; Neutrophils % 79.5 % (38.7-73.9); Platelet Count 207 T/CUMM (130-400); Red Blood Count 2.78 MC/CUMM (3.8-5.5); Red Cell Distribution Width 16.7 % (9.3-17.3); White Blood Count 16.2 T/CUMM (4-12)
[2020-04-22 05:01] LABS: Calcium 7.5 MG/DL (8.5-10.1); Eosinophils 3 % (0-10); Hypochromasia 1+; Lymphocytes 5 % (20-55); Microcytosis Slight; Osmolality,Calculated 290.1 MOS/KG (273-304); Platelet Estimate Adequate; Segmented Neutrophils 87 % (50-85); Total Cells Counted 100
[2020-04-22] MEDS: amLODIPine 5 MG TABLET PO SCH (10:55)
[2020-04-22] MEDS: ATORVASTATIN 10 MG TABLET PO SCH (10:55)
[2020-04-22] MEDS: DOCUSATE SODIUM 100 MG CAPSULE PO SCH ×2 (10:55→20:48)
[2020-04-22] MEDS: GLIMEPIRIDE 2 MG TABLET PO SCH (10:55)
[2020-04-22] MEDS: HYDROCORTISONE 100 MG VIAL IV SCH (10:56)
[2020-04-22] MEDS: PANTOPRAZOLE 40 MG VIAL IV SCH (10:56)
[2020-04-22 13:48] LABS: Hematocrit 27.6 VOL% (42.0-52.0); Hemoglobin 8.8 GM/DL (14.0-18.0)
[2020-04-23] MEDS: INSULIN REGULAR 100 UNIT/ML SUBCUT SCH ×4 (00:19→17:19)
[2020-04-23] MEDS: MEROPENEM 500 MG in SODIUM CHLORIDE 0.9% 100 ML IV SCH ×2 (02:34→09:34)
[2020-04-23 08:35] LABS: Basophils % 0.1 % (0.0-0.8); Eosinophils # 0.1 10*3/uL (0.0-0.87); Eosinophils % 0.7 % (0.00-10.9); Hematocrit 26.3 VOL% (42.0-52.0); Hemoglobin 8.4 GM/DL (14.0-18.0); Immature Granulocytes % 2.9 %; Immature Granulocytes Absolute 0.51 #; Lymphocytes # 1.4 10*3/uL (1.4-4.0); Lymphocytes % 7.7 % (21.2-54.2); Mean Corpuscular HGB Conc 31.9 GM/DL (32-36); Mean Corpuscular Volume 90.4 FL (87-102); Mean Platelet Volume 10.3 FL (9.6-12.0); Monocytes % 6.1 % (1.7-12.7); Neutrophils % 82.5 % (38.7-73.9); Platelet Count 246 T/CUMM (130-400); Red Blood Count 2.91 MC/CUMM (3.8-5.5); Red Cell Distribution Width 16.3 % (9.3-17.3); White Blood Count 17.8 T/CUMM (4-12)
[2020-04-23 08:56] LABS: Eosinophils 1 % (0-10); Lymphocytes 6 % (20-55); Platelet Estimate Adequate; Segmented Neutrophils 88 % (50-85); Total Cells Counted 100
[2020-04-23 08:57] LABS: Hypochromasia 1+; Microcytosis 1+; Ovalocytes Slight
[2020-04-23] MEDS: HYDROCORTISONE 100 MG VIAL IV SCH (09:34)
[2020-04-23] MEDS: PANTOPRAZOLE 40 MG VIAL IV SCH (09:34)
[2020-04-23] MEDS: ATORVASTATIN 10 MG TABLET PO SCH (09:35)
[2020-04-23] MEDS: GLIMEPIRIDE 2 MG TABLET PO SCH (09:35)
[2020-04-23] MEDS: amLODIPine 5 MG TABLET PO SCH (09:35)
[2020-04-23] MEDS: DOCUSATE SODIUM 100 MG CAPSULE PO SCH ×2 (09:35→20:48)
[2020-04-23] MEDS: cefTRIAXone 1,000 MG in SYRINGE 1 EACH IV SCH (12:23)
[2020-04-24] MEDS: INSULIN REGULAR 100 UNIT/ML SUBCUT SCH ×5 (01:26→23:10)
[2020-04-24] MEDS: GLIMEPIRIDE 2 MG TABLET PO SCH (08:06)
[2020-04-24] MEDS: DOCUSATE SODIUM 100 MG CAPSULE PO SCH ×2 (08:55→20:07)
[2020-04-24] MEDS: amLODIPine 5 MG TABLET PO SCH (08:55)
[2020-04-24] MEDS: PANTOPRAZOLE 40 MG VIAL IV SCH (08:55)
[2020-04-24] MEDS: ATORVASTATIN 10 MG TABLET PO SCH (08:55)
[2020-04-24] MEDS: HYDROCORTISONE 100 MG VIAL IV SCH (08:55)
[2020-04-24] MEDS: cefTRIAXone 1,000 MG in SYRINGE 1 EACH IV SCH (13:14)
[2020-04-25] MEDS: INSULIN REGULAR 100 UNIT/ML SUBCUT SCH ×3 (07:09→18:29)
[2020-04-25] MEDS: GLIMEPIRIDE 2 MG TABLET PO SCH (09:39)
[2020-04-25] MEDS: amLODIPine 5 MG TABLET PO SCH (09:44)
[2020-04-25] MEDS: HYDROCORTISONE 100 MG VIAL IV SCH (09:44)
[2020-04-25] MEDS: ATORVASTATIN 10 MG TABLET PO SCH (09:44)
[2020-04-25] MEDS: DOCUSATE SODIUM 100 MG CAPSULE PO SCH ×2 (09:44→20:21)
[2020-04-25] MEDS: PANTOPRAZOLE 40 MG VIAL IV SCH (09:45)
[2020-04-25 12:21] LABS: Basophils % 0.3 % (0.0-0.8); Eosinophils # 0.1 10*3/uL (0.0-0.87); Eosinophils % 0.5 % (0.00-10.9); Hematocrit 22.4 VOL% (42.0-52.0); Hemoglobin 6.7 GM/DL (14.0-18.0); Immature Granulocytes % 1.7 %; Immature Granulocytes Absolute 0.27 #; Lymphocytes # 0.9 10*3/uL (1.4-4.0); Lymphocytes % 5.8 % (21.2-54.2); Mean Corpuscular HGB Conc 29.9 GM/DL (32-36); Mean Corpuscular Volume 95.7 FL (87-102); Mean Platelet Volume 10.1 FL (9.6-12.0); Monocytes % 4.6 % (1.7-12.7); Neutrophils % 87.1 % (38.7-73.9); Platelet Count 262 T/CUMM (130-400); Red Blood Count 2.34 MC/CUMM (3.8-5.5); Red Cell Distribution Width 16.8 % (9.3-17.3); White Blood Count 15.8 T/CUMM (4-12)
[2020-04-25] MEDS ORDERED: FUROSEMIDE 20 MG/2 ML VIAL IV PRN (14:15)
[2020-04-25] MEDS ORDERED: SODIUM CHLORIDE 0.9% 1,000 ML IV PRN (14:15)
[2020-04-25] MEDS: cefTRIAXone 1,000 MG in SYRINGE 1 EACH IV SCH (15:00)
[2020-04-25] MEDS: FUROSEMIDE 20 MG/2 ML VIAL IV PRN (21:57)
[2020-04-26] MEDS: INSULIN REGULAR 100 UNIT/ML SUBCUT SCH ×4 (00:07→17:35)
[2020-04-26 04:55] LABS: Basophils # 0.1 10*3/uL (0.0-0.2); Basophils % 0.3 % (0.0-0.8); Eosinophils # 0.1 10*3/uL (0.0-0.87); Eosinophils % 0.6 % (0.00-10.9); Hematocrit 30.5 VOL% (42.0-52.0); Hemoglobin 9.8 GM/DL (14.0-18.0); Immature Granulocytes % 2.1 %; Immature Granulocytes Absolute 0.32 #; Lymphocytes # 1.5 10*3/uL (1.4-4.0); Lymphocytes % 9.9 % (21.2-54.2); Mean Corpuscular HGB Conc 32.1 GM/DL (32-36); Mean Platelet Volume 10.3 FL (9.6-12.0); Monocytes % 7.2 % (1.7-12.7); Neutrophils % 79.9 % (38.7-73.9); Platelet Count 235 T/CUMM (130-400); Red Blood Count 3.35 MC/CUMM (3.8-5.5); Red Cell Distribution Width 15.9 % (9.3-17.3); White Blood Count 15.5 T/CUMM (4-12)
[2020-04-26] MEDS: DOCUSATE SODIUM 100 MG CAPSULE PO SCH ×2 (10:00→21:00)
[2020-04-26] MEDS: amLODIPine 5 MG TABLET PO SCH (10:00)
[2020-04-26] MEDS: PANTOPRAZOLE 40 MG VIAL IV SCH (10:00)
[2020-04-26] MEDS: GLIMEPIRIDE 2 MG TABLET PO SCH (10:00)
[2020-04-26] MEDS: ATORVASTATIN 10 MG TABLET PO SCH (10:00)
[2020-04-26] MEDS: HYDROCORTISONE 100 MG VIAL IV SCH (10:01)
[2020-04-26] MEDS: cefTRIAXone 1,000 MG in SYRINGE 1 EACH IV SCH (12:04)
[2020-04-26 17:39] LABS: Hematocrit 26.7 VOL% (42.0-52.0); Hemoglobin 8.5 GM/DL (14.0-18.0)
[2020-04-27] MEDS: INSULIN REGULAR 100 UNIT/ML SUBCUT SCH ×4 (01:31→18:14)
[2020-04-27 06:57] LABS: Basophils % 0.2 % (0.0-0.8); Eosinophils # 0.1 10*3/uL (0.0-0.87); Eosinophils % 0.5 % (0.00-10.9); Hematocrit 25.1 VOL% (42.0-52.0); Hemoglobin 8.5 GM/DL (14.0-18.0); Immature Granulocytes % 1.4 %; Immature Granulocytes Absolute 0.18 #; Lymphocytes # 1.3 10*3/uL (1.4-4.0); Lymphocytes % 9.6 % (21.2-54.2); Mean Corpuscular HGB Conc 33.9 GM/DL (32-36); Mean Platelet Volume 10.3 FL (9.6-12.0); Neutrophils % 82.3 % (38.7-73.9); Platelet Count 226 T/CUMM (130-400); Red Blood Count 2.79 MC/CUMM (3.8-5.5); Red Cell Distribution Width 16.3 % (9.3-17.3); White Blood Count 13.2 T/CUMM (4-12)
[2020-04-27] MEDS ORDERED: cefTRIAXone 1,000 MG in SYRINGE 1 EACH IV ONE (07:00)
[2020-04-27 07:07] LABS: INR 1.1; PT Patient Result 11.5 SECS (9.8-11.9)
[2020-04-27 07:31] LABS: Albumin 1.6 G/DL (3.4-5.0); Bilirubin,Total 1.6 MG/DL (0.2-1.0); Calcium 7.9 MG/DL (8.5-10.1); Osmolality,Calculated 278.4 MOS/KG (273-304); Total Protein 5.7 G/DL (6.4-8.3)
[2020-04-27] MEDS ORDERED: LACTATED RINGERS 1,000 ML IV SCH (08:30)
[2020-04-27] MEDS ORDERED: SEVOFLURANE 1 UNIT/15 MINUTE INH ONE (09:47)
[2020-04-27] MEDS ORDERED: LIDOCAINE 2% 5 ML VIAL ONE (09:47)
[2020-04-27] MEDS ORDERED: propofoL 200 MG/20 ML VIAL IV ONE (09:47)
[2020-04-27] MEDS ORDERED: PHENYLEPHRINE 1 MG/10 ML SYRINGE IV ONE (09:48)
[2020-04-27] MEDS ORDERED: ROCURONIUM 100 MG/10 ML VIAL IV ONE (09:48)
[2020-04-27] MEDS ORDERED: fentaNYL 100 MCG/2 ML VIAL ONE (09:48)
[2020-04-27] MEDS ORDERED: NEOSTIGMINE 10 MG/10 ML VIAL ONE (09:48)
[2020-04-27] MEDS ORDERED: ONDANSETRON 4 MG/2 ML VIAL ONE (09:48)
[2020-04-27] MEDS ORDERED: GLYCOPYRROLATE 0.4 MG/2 ML VIAL ONE (09:48)
[2020-04-27] MEDS: GLIMEPIRIDE 2 MG TABLET PO SCH (10:53)
[2020-04-27] MEDS: amLODIPine 5 MG TABLET PO SCH (10:54)
[2020-04-27] MEDS: ACETAMINOPHEN 325 MG TABLET PO PRN (10:54)
[2020-04-27] MEDS: ATORVASTATIN 10 MG TABLET PO SCH (10:54)
[2020-04-27] MEDS: DOCUSATE SODIUM 100 MG CAPSULE PO SCH ×2 (10:54→20:05)
[2020-04-27] MEDS: HYDROCORTISONE 100 MG VIAL IV SCH (10:55)
[2020-04-27] MEDS: POTASSIUM CHLORIDE 20 MEQ/15 ML UDCUP PER TUBE PRN ×4 (10:55→18:20)
[2020-04-27] MEDS: PANTOPRAZOLE 40 MG VIAL IV SCH (10:55)
[2020-04-27] MEDS: cefTRIAXone 1,000 MG in SYRINGE 1 EACH IV SCH (13:25)
[2020-04-28] MEDS: INSULIN REGULAR 100 UNIT/ML SUBCUT SCH ×4 (01:10→18:19)
[2020-04-28 05:24] LABS: Basophils % 0.2 % (0.0-0.8); Eosinophils # 0.1 10*3/uL (0.0-0.87); Eosinophils % 0.8 % (0.00-10.9); Hematocrit 22.5 VOL% (42.0-52.0); Immature Granulocytes % 1.2 %; Immature Granulocytes Absolute 0.13 #; Lymphocytes # 1.1 10*3/uL (1.4-4.0); Lymphocytes % 10.1 % (21.2-54.2); Mean Corpuscular HGB Conc 31.1 GM/DL (32-36); Mean Corpuscular Volume 93.4 FL (87-102); Mean Platelet Volume 9.7 FL (9.6-12.0); Monocytes % 5.8 % (1.7-12.7); Neutrophils % 81.9 % (38.7-73.9); Platelet Count 202 T/CUMM (130-400); Red Blood Count 2.41 MC/CUMM (3.8-5.5); Red Cell Distribution Width 16.3 % (9.3-17.3); White Blood Count 10.6 T/CUMM (4-12)
[2020-04-28 05:47] LABS: Calcium 7.5 MG/DL (8.5-10.1); Osmolality,Calculated 280.3 MOS/KG (273-304)
[2020-04-28] MEDS ORDERED: SODIUM CHLORIDE 0.9% 1,000 ML IV PRN (07:29)
[2020-04-28] MEDS: DOCUSATE SODIUM 100 MG CAPSULE PO SCH ×2 (09:03→21:02)
[2020-04-28] MEDS: amLODIPine 5 MG TABLET PO SCH (09:03)
[2020-04-28] MEDS: ATORVASTATIN 10 MG TABLET PO SCH (09:03)
[2020-04-28] MEDS: GLIMEPIRIDE 2 MG TABLET PO SCH (09:03)
[2020-04-28] MEDS: HYDROCORTISONE 100 MG VIAL IV SCH ×2 (09:04→10:51)
[2020-04-28] MEDS: PANTOPRAZOLE 40 MG VIAL IV SCH ×2 (09:04→10:51)
[2020-04-28] MEDS: cefTRIAXone 1,000 MG in SYRINGE 1 EACH IV SCH (12:06)
[2020-04-28 17:50] LABS: Hematocrit 28.2 VOL% (42.0-52.0); Hemoglobin 9.2 GM/DL (14.0-18.0)
[2020-04-29 03:34] LABS: Basophils % 0.2 % (0.0-0.8); Eosinophils # 0.1 10*3/uL (0.0-0.87); Eosinophils % 0.6 % (0.00-10.9); Hematocrit 25.7 VOL% (42.0-52.0); Hemoglobin 8.1 GM/DL (14.0-18.0); Immature Granulocytes % 1.1 %; Immature Granulocytes Absolute 0.14 #; Lymphocytes # 1.4 10*3/uL (1.4-4.0); Lymphocytes % 11.7 % (21.2-54.2); Mean Corpuscular HGB Conc 31.5 GM/DL (32-36); Mean Corpuscular Volume 93.8 FL (87-102); Mean Platelet Volume 9.7 FL (9.6-12.0); Monocytes % 6.4 % (1.7-12.7); Platelet Count 184 T/CUMM (130-400); Red Blood Count 2.74 MC/CUMM (3.8-5.5); White Blood Count 12.3 T/CUMM (4-12)
[2020-04-29] MEDS: INSULIN REGULAR 100 UNIT/ML SUBCUT SCH ×4 (05:23→18:14)
[2020-04-29 07:47] LABS: % Iron Saturation 18.7 % (18-50); Ferritin 383.6 ng/ml (26-388)
[2020-04-29 07:56] LABS: Folate 6.5 NG/ML (5.4-24.0)
[2020-04-29] MEDS: DOCUSATE SODIUM 100 MG CAPSULE PO SCH (08:31)
[2020-04-29] MEDS: FERROUS SULFATE 325 MG TABLET PO SCH (08:31)
[2020-04-29] MEDS: ATORVASTATIN 10 MG TABLET PO SCH (08:32)
[2020-04-29] MEDS: GLIMEPIRIDE 2 MG TABLET PO SCH (08:32)
[2020-04-29] MEDS: amLODIPine 5 MG TABLET PO SCH (08:32)
[2020-04-29] MEDS: PANTOPRAZOLE 40 MG VIAL IV SCH (08:44)
[2020-04-29] MEDS: HYDROCORTISONE 100 MG VIAL IV SCH (08:44)
[2020-04-29] MEDS: cefTRIAXone 1,000 MG in SYRINGE 1 EACH IV SCH (11:31)
[2020-04-30] MEDS: DOCUSATE SODIUM 100 MG CAPSULE PO SCH ×4 (02:36→21:08)
[2020-04-30] MEDS: INSULIN REGULAR 100 UNIT/ML SUBCUT SCH ×4 (02:36→18:13)
[2020-04-30 05:39] LABS: Basophils % 0.2 % (0.0-0.8); Eosinophils # 0.1 10*3/uL (0.0-0.87); Eosinophils % 1.2 % (0.00-10.9); Hematocrit 24.1 VOL% (42.0-52.0); Hemoglobin 8.1 GM/DL (14.0-18.0); Immature Granulocytes % 1.6 %; Immature Granulocytes Absolute 0.17 #; Lymphocytes # 1.4 10*3/uL (1.4-4.0); Lymphocytes % 12.5 % (21.2-54.2); Mean Corpuscular HGB Conc 33.6 GM/DL (32-36); Mean Corpuscular Volume 90.3 FL (87-102); Mean Platelet Volume 9.4 FL (9.6-12.0); Neutrophils % 78.5 % (38.7-73.9); Platelet Count 154 T/CUMM (130-400); Red Blood Count 2.67 MC/CUMM (3.8-5.5); Red Cell Distribution Width 15.5 % (9.3-17.3); White Blood Count 10.8 T/CUMM (4-12)
[2020-04-30 06:03] LABS: Calcium 7.6 MG/DL (8.5-10.1); Osmolality,Calculated 278.4 MOS/KG (273-304)
[2020-04-30] MEDS ORDERED: FUROSEMIDE 40 MG/4 ML VIAL IV ONE (08:11)
[2020-04-30] MEDS: PANTOPRAZOLE 40 MG VIAL IV SCH (08:24)
[2020-04-30] MEDS: ATORVASTATIN 10 MG TABLET PO SCH (08:24)
[2020-04-30] MEDS: GLIMEPIRIDE 2 MG TABLET PO SCH (08:25)
[2020-04-30] MEDS: HYDROCORTISONE 100 MG VIAL IV SCH (08:25)
[2020-04-30] MEDS: FERROUS SULFATE 325 MG TABLET PO SCH (08:25)
[2020-04-30] MEDS: amLODIPine 5 MG TABLET PO SCH (08:25)
[2020-04-30] MEDS: FUROSEMIDE 20 MG/2 ML VIAL IV PRN ×2 (11:47→11:55)
[2020-04-30] MEDS ORDERED: POTASSIUM CHLORIDE RIDER 10 MEQ in PREMIX 1 EACH IV PRN (14:03)
[2020-04-30] MEDS: POTASSIUM CHLORIDE 20 MEQ TABLET PO PRN ×3 (14:20→18:59)
[2020-05-01] MEDS: INSULIN REGULAR 100 UNIT/ML SUBCUT SCH ×4 (00:17→18:17)
[2020-05-01 03:27] LABS: Basophils % 0.3 % (0.0-0.8); Eosinophils # 0.1 10*3/uL (0.0-0.87); Hematocrit 26.6 VOL% (42.0-52.0); Hemoglobin 8.6 GM/DL (14.0-18.0); Immature Granulocytes % 1.5 %; Immature Granulocytes Absolute 0.15 #; Lymphocytes # 1.3 10*3/uL (1.4-4.0); Lymphocytes % 13.4 % (21.2-54.2); Mean Corpuscular HGB Conc 32.3 GM/DL (32-36); Mean Platelet Volume 9.4 FL (9.6-12.0); Monocytes % 6.2 % (1.7-12.7); Neutrophils % 77.6 % (38.7-73.9); Platelet Count 151 T/CUMM (130-400); Red Blood Count 2.89 MC/CUMM (3.8-5.5); Red Cell Distribution Width 15.9 % (9.3-17.3); White Blood Count 9.9 T/CUMM (4-12)
[2020-05-01 03:39] LABS: Calcium 7.6 MG/DL (8.5-10.1); Osmolality,Calculated 277.4 MOS/KG (273-304)
[2020-05-01] MEDS: POTASSIUM CHLORIDE 20 MEQ TABLET PO PRN ×4 (06:45→11:54)
[2020-05-01] MEDS: FERROUS SULFATE 325 MG TABLET PO SCH (08:20)
[2020-05-01] MEDS: amLODIPine 5 MG TABLET PO SCH (08:20)
[2020-05-01] MEDS: ATORVASTATIN 10 MG TABLET PO SCH (08:20)
[2020-05-01] MEDS: PANTOPRAZOLE 40 MG VIAL IV SCH (08:20)
[2020-05-01] MEDS: GLIMEPIRIDE 2 MG TABLET PO SCH (08:20)
[2020-05-01] MEDS: DOCUSATE SODIUM 100 MG CAPSULE PO SCH ×2 (08:20→20:34)
[2020-05-01] MEDS: HYDROCORTISONE 100 MG VIAL IV SCH (08:21)
[2020-05-01] MEDS: DUTASTERIDE 0.5 MG CAPSULE PO SCH (11:54)
[2020-05-02] MEDS: INSULIN REGULAR 100 UNIT/ML SUBCUT SCH ×4 (00:12→18:09)
[2020-05-02 06:10] LABS: Basophils % 0.2 % (0.0-0.8); Eosinophils # 0.2 10*3/uL (0.0-0.87); Eosinophils % 1.8 % (0.00-10.9); Hematocrit 27.1 VOL% (42.0-52.0); Hemoglobin 8.4 GM/DL (14.0-18.0); Immature Granulocytes % 1.4 %; Immature Granulocytes Absolute 0.13 #; Lymphocytes # 1.4 10*3/uL (1.4-4.0); Lymphocytes % 14.5 % (21.2-54.2); Mean Corpuscular Volume 93.4 FL (87-102); Mean Platelet Volume 9.5 FL (9.6-12.0); Monocytes % 6.4 % (1.7-12.7); Neutrophils % 75.7 % (38.7-73.9); Platelet Count 136 T/CUMM (130-400); White Blood Count 9.3 T/CUMM (4-12)
[2020-05-02 06:24] LABS: Calcium 7.5 MG/DL (8.5-10.1); Osmolality,Calculated 276.5 MOS/KG (273-304)
[2020-05-02] MEDS: POTASSIUM CHLORIDE 20 MEQ TABLET PO PRN (06:39)
[2020-05-02] MEDS: ATORVASTATIN 10 MG TABLET PO SCH (08:11)
[2020-05-02] MEDS: GLIMEPIRIDE 2 MG TABLET PO SCH (08:11)
[2020-05-02] MEDS: DOCUSATE SODIUM 100 MG CAPSULE PO SCH ×2 (08:11→20:22)
[2020-05-02] MEDS: DUTASTERIDE 0.5 MG CAPSULE PO SCH (08:12)
[2020-05-02] MEDS: PANTOPRAZOLE 40 MG VIAL IV SCH (08:12)
[2020-05-02] MEDS: FERROUS SULFATE 325 MG TABLET PO SCH (08:12)
[2020-05-02] MEDS: amLODIPine 5 MG TABLET PO SCH (08:12)
[2020-05-02] MEDS: HYDROCORTISONE 100 MG VIAL IV SCH (08:13)
[2020-05-03] MEDS: INSULIN REGULAR 100 UNIT/ML SUBCUT SCH ×4 (00:52→18:17)
[2020-05-03 03:58] LABS: Basophils % 0.1 % (0.0-0.8); Eosinophils % 0.4 % (0.00-10.9); Hematocrit 27.2 VOL% (42.0-52.0); Hemoglobin 8.5 GM/DL (14.0-18.0); Immature Granulocytes % 1.3 %; Immature Granulocytes Absolute 0.12 #; Lymphocytes # 1.2 10*3/uL (1.4-4.0); Lymphocytes % 12.5 % (21.2-54.2); Mean Corpuscular HGB Conc 31.3 GM/DL (32-36); Mean Corpuscular Volume 94.1 FL (87-102); Mean Platelet Volume 9.8 FL (9.6-12.0); Monocytes % 6.6 % (1.7-12.7); Neutrophils % 79.1 % (38.7-73.9); Platelet Count 134 T/CUMM (130-400); Red Blood Count 2.89 MC/CUMM (3.8-5.5); Red Cell Distribution Width 15.8 % (9.3-17.3); White Blood Count 9.6 T/CUMM (4-12)
[2020-05-03 04:15] LABS: Calcium 7.9 MG/DL (8.5-10.1); Osmolality,Calculated 277.7 MOS/KG (273-304)
[2020-05-03] MEDS: POTASSIUM CHLORIDE 20 MEQ TABLET PO PRN ×4 (06:11→12:51)
[2020-05-03 07:17] LABS: Platelet Estimate Adequate
[2020-05-03 07:39] LABS: Anisocytosis 1+; Macrocytosis 1+
[2020-05-03 07:55] LABS: Hypochromasia Slight
[2020-05-03] MEDS: DUTASTERIDE 0.5 MG CAPSULE PO SCH (09:23)
[2020-05-03] MEDS: FERROUS SULFATE 325 MG TABLET PO SCH (09:23)
[2020-05-03] MEDS: amLODIPine 5 MG TABLET PO SCH (09:23)
[2020-05-03] MEDS: ATORVASTATIN 10 MG TABLET PO SCH (09:23)
[2020-05-03] MEDS: GLIMEPIRIDE 2 MG TABLET PO SCH (09:23)
[2020-05-03] MEDS: HYDROCORTISONE 100 MG VIAL IV SCH (09:26)
[2020-05-03] MEDS: DOCUSATE SODIUM 100 MG CAPSULE PO SCH ×2 (09:26→20:48)
[2020-05-03] MEDS: PANTOPRAZOLE 40 MG VIAL IV SCH (09:26)
[2020-05-04] MEDS: INSULIN REGULAR 100 UNIT/ML SUBCUT SCH ×4 (00:09→17:48)
[2020-05-04 05:41] LABS: Basophils % 0.2 % (0.0-0.8); Eosinophils # 0.2 10*3/uL (0.0-0.87); Hematocrit 25.2 VOL% (42.0-52.0); Hemoglobin 7.8 GM/DL (14.0-18.0); Immature Granulocytes % 1.2 %; Immature Granulocytes Absolute 0.11 #; Lymphocytes # 1.7 10*3/uL (1.4-4.0); Lymphocytes % 18.9 % (21.2-54.2); Mean Corpuscular Volume 93.7 FL (87-102); Monocytes % 7.1 % (1.7-12.7); Neutrophils % 70.6 % (38.7-73.9); Platelet Count 77 T/CUMM (130-400); Red Blood Count 2.69 MC/CUMM (3.8-5.5); Red Cell Distribution Width 16.2 % (9.3-17.3)
[2020-05-04 06:10] LABS: Calcium 7.7 MG/DL (8.5-10.1); Osmolality,Calculated 275.5 MOS/KG (273-304)
[2020-05-04 06:12] LABS: Band Neutrophils 2 % (0-10); Eosinophils 1 % (0-10); Hypochromasia 1+; Lymphocytes 13 % (20-55); Segmented Neutrophils 79 % (50-85); Total Cells Counted 100
[2020-05-04] MEDS ORDERED: SODIUM CHLORIDE 0.9% 500 ML IV ONE (08:11)
[2020-05-04] MEDS: GLIMEPIRIDE 2 MG TABLET PO SCH (09:03)
[2020-05-04] MEDS: ATORVASTATIN 10 MG TABLET PO SCH (09:04)
[2020-05-04] MEDS: PANTOPRAZOLE 40 MG VIAL IV SCH (09:04)
[2020-05-04] MEDS: amLODIPine 5 MG TABLET PO SCH (09:04)
[2020-05-04] MEDS: FERROUS SULFATE 325 MG TABLET PO SCH (09:04)
[2020-05-04] MEDS: DOCUSATE SODIUM 100 MG CAPSULE PO SCH ×2 (09:04→20:08)
[2020-05-04] MEDS: DUTASTERIDE 0.5 MG CAPSULE PO SCH (09:04)
[2020-05-04] MEDS: HYDROCORTISONE 100 MG VIAL IV SCH (09:05)
[2020-05-04 09:13] LABS: Basophils % 0.3 % (0.0-0.8); Eosinophils # 0.2 10*3/uL (0.0-0.87); Eosinophils % 1.6 % (0.00-10.9); Hematocrit 23.6 VOL% (42.0-52.0); Hemoglobin 7.3 GM/DL (14.0-18.0); Immature Granulocytes % 1.3 %; Immature Granulocytes Absolute 0.16 #; Lymphocytes # 3.4 10*3/uL (1.4-4.0); Lymphocytes % 27.7 % (21.2-54.2); Mean Corpuscular HGB Conc 30.9 GM/DL (32-36); Mean Corpuscular Volume 95.5 FL (87-102); Mean Platelet Volume 10.2 FL (9.6-12.0); Monocytes % 6.6 % (1.7-12.7); Neutrophils % 62.5 % (38.7-73.9); Red Blood Count 2.47 MC/CUMM (3.8-5.5); Red Cell Distribution Width 16.2 % (9.3-17.3); White Blood Count 12.1 T/CUMM (4-12)
[2020-05-04 09:15] LABS: Platelet Count 142 T/CUMM (130-400)
[2020-05-04] MEDS ORDERED: SODIUM CHLORIDE 0.9% 1,000 ML IV PRN (09:50)
[2020-05-04] MEDS ORDERED: SODIUM CHLORIDE 0.9% 1,000 ML IV ONE (09:51)
[2020-05-04 19:16] LABS: Hematocrit 16.2 VOL% (42.0-52.0); Hemoglobin 5.2 GM/DL (14.0-18.0)
[2020-05-04 20:08] LABS: Hemoglobin 5.2 GM/DL (14.0-18.0)
[2020-05-04 20:09] LABS: Hematocrit 17.4 VOL% (42.0-52.0)
[2020-05-05] MEDS: INSULIN REGULAR 100 UNIT/ML SUBCUT SCH ×4 (01:21→18:49)
[2020-05-05 06:19] LABS: Hemoglobin 4.8 GM/DL (14.0-18.0)
[2020-05-05 06:20] LABS: Hematocrit 14.8 VOL% (42.0-52.0)
[2020-05-05] MEDS ORDERED: SODIUM CHLORIDE 0.9% 1,000 ML IV PRN (07:32)
[2020-05-05 08:05] LABS: INR 1.2; Partial Thromboplastin Time 22.9 SECS (23.9-33.8)
[2020-05-05] MEDS ORDERED: ceFAZolin 1,000 MG in SYRINGE 1 EACH IV ONE (09:00)
[2020-05-05] MEDS ORDERED: MIDAZOLAM 10 MG/2 ML VIAL IV ONE (09:00)
[2020-05-05] MEDS ORDERED: fentaNYL 100 MCG/2 ML VIAL IV ONE (09:00)
[2020-05-05] MEDS: HYDROCORTISONE 100 MG VIAL IV SCH (10:40)
[2020-05-05] MEDS: PANTOPRAZOLE 40 MG VIAL IV SCH (10:41)
[2020-05-05] MEDS ORDERED: HEPARIN/NACL 0.9% 2 UNITS/ML 2,000 ML IV ONE (12:11)
[2020-05-05] MEDS ORDERED: fentaNYL 100 MCG/2 ML VIAL ONE (14:11)
[2020-05-05] MEDS ORDERED: MIDAZOLAM 2 MG/2 ML VIAL ONE (14:11)
[2020-05-05] MEDS ORDERED: HEPARIN/NACL 0.9% 2 UNITS/ML 1,000 ML IV ONE (14:42)
[2020-05-05] MEDS: ATORVASTATIN 10 MG TABLET PO SCH (15:34)
[2020-05-05] MEDS: DUTASTERIDE 0.5 MG CAPSULE PO SCH (15:34)
[2020-05-05] MEDS: FERROUS SULFATE 325 MG TABLET PO SCH (15:34)
[2020-05-05] MEDS: GLIMEPIRIDE 2 MG TABLET PO SCH (15:34)
[2020-05-05] MEDS: DOCUSATE SODIUM 100 MG CAPSULE PO SCH ×2 (15:34→21:00)
[2020-05-05] MEDS: amLODIPine 5 MG TABLET PO SCH (15:35)
[2020-05-06 00:30] LABS: Hematocrit 24.6 VOL% (42.0-52.0)
[2020-05-06] MEDS: INSULIN REGULAR 100 UNIT/ML SUBCUT SCH ×4 (01:12→18:33)
[2020-05-06] MEDS: GLIMEPIRIDE 2 MG TABLET PO SCH (08:42)
[2020-05-06] MEDS: amLODIPine 5 MG TABLET PO SCH (08:43)
[2020-05-06] MEDS: DUTASTERIDE 0.5 MG CAPSULE PO SCH (08:43)
[2020-05-06] MEDS: ATORVASTATIN 10 MG TABLET PO SCH (08:43)
[2020-05-06] MEDS: FERROUS SULFATE 325 MG TABLET PO SCH (08:43)
[2020-05-06] MEDS: DOCUSATE SODIUM 100 MG CAPSULE PO SCH ×2 (08:43→20:10)
[2020-05-06] MEDS: PANTOPRAZOLE 40 MG VIAL IV SCH (08:46)
[2020-05-06] MEDS: HYDROCORTISONE 100 MG VIAL IV SCH (08:47)
[2020-05-06 16:22] LABS: Basophils % 0.1 % (0.0-0.8); Eosinophils % 0.1 % (0.00-10.9); Hematocrit 27.4 VOL% (42.0-52.0); Hemoglobin 8.7 GM/DL (14.0-18.0); Immature Granulocytes % 1.3 %; Immature Granulocytes Absolute 0.23 #; Lymphocytes # 1.3 10*3/uL (1.4-4.0); Lymphocytes % 7.4 % (21.2-54.2); Mean Corpuscular HGB Conc 31.8 GM/DL (32-36); Mean Corpuscular Volume 91.6 FL (87-102); Mean Platelet Volume 9.6 FL (9.6-12.0); Monocytes % 5.3 % (1.7-12.7); Neutrophils % 85.8 % (38.7-73.9); Platelet Count 151 T/CUMM (130-400); Red Blood Count 2.99 MC/CUMM (3.8-5.5); Red Cell Distribution Width 17.4 % (9.3-17.3); White Blood Count 17.3 T/CUMM (4-12)
[2020-05-06 16:33] LABS: INR 1.1; PT Patient Result 12.2 SECS (9.8-11.9); Partial Thromboplastin Time 23.3 SECS (23.9-33.8)
[2020-05-06] MEDS ORDERED: SODIUM CHLORIDE 0.9% 1,000 ML IV PRN (16:39)
[2020-05-07] MEDS: INSULIN REGULAR 100 UNIT/ML SUBCUT SCH ×4 (01:20→18:22)
[2020-05-07 05:05] LABS: Basophils % 0.1 % (0.0-0.8); Eosinophils # 0.1 10*3/uL (0.0-0.87); Eosinophils % 0.5 % (0.00-10.9); Hematocrit 24.6 VOL% (42.0-52.0); Hemoglobin 7.8 GM/DL (14.0-18.0); Immature Granulocytes % 1.3 %; Immature Granulocytes Absolute 0.18 #; Lymphocytes # 1.3 10*3/uL (1.4-4.0); Lymphocytes % 9.6 % (21.2-54.2); Mean Corpuscular HGB Conc 31.7 GM/DL (32-36); Mean Corpuscular Volume 91.8 FL (87-102); Mean Platelet Volume 9.6 FL (9.6-12.0); Monocytes % 5.8 % (1.7-12.7); Neutrophils % 82.7 % (38.7-73.9); Platelet Count 155 T/CUMM (130-400); Red Blood Count 2.68 MC/CUMM (3.8-5.5); Red Cell Distribution Width 17.5 % (9.3-17.3); White Blood Count 13.4 T/CUMM (4-12)
[2020-05-07] MEDS: OXYBUTYNIN XL 15 MG TABLET PO SCH (08:14)
[2020-05-07] MEDS: amLODIPine 5 MG TABLET PO SCH (08:14)
[2020-05-07] MEDS: GLIMEPIRIDE 2 MG TABLET PO SCH (08:14)
[2020-05-07] MEDS: DOCUSATE SODIUM 100 MG CAPSULE PO SCH ×2 (08:14→20:03)
[2020-05-07] MEDS: FERROUS SULFATE 325 MG TABLET PO SCH (08:14)
[2020-05-07] MEDS: ATORVASTATIN 10 MG TABLET PO SCH (08:14)
[2020-05-07] MEDS: DUTASTERIDE 0.5 MG CAPSULE PO SCH (08:16)
[2020-05-07] MEDS: PANTOPRAZOLE 40 MG VIAL IV SCH (08:17)
[2020-05-07] MEDS: HYDROCORTISONE 100 MG VIAL IV SCH (08:17)
[2020-05-08] MEDS: INSULIN REGULAR 100 UNIT/ML SUBCUT SCH ×5 (00:02→23:04)
[2020-05-08 06:50] LABS: Basophils % 0.3 % (0.0-0.8); Eosinophils # 0.1 10*3/uL (0.0-0.87); Eosinophils % 1.2 % (0.00-10.9); Hematocrit 28.5 VOL% (42.0-52.0); Immature Granulocytes % 1.1 %; Immature Granulocytes Absolute 0.13 #; Lymphocytes # 1.2 10*3/uL (1.4-4.0); Lymphocytes % 9.8 % (21.2-54.2); Mean Corpuscular HGB Conc 31.6 GM/DL (32-36); Mean Corpuscular Volume 91.9 FL (87-102); Mean Platelet Volume 10.4 FL (9.6-12.0); Monocytes % 4.8 % (1.7-12.7); Neutrophils % 82.8 % (38.7-73.9); Platelet Count 133 T/CUMM (130-400); Red Cell Distribution Width 17.4 % (9.3-17.3); White Blood Count 11.8 T/CUMM (4-12)
[2020-05-08] MEDS ORDERED: FLUCONAZOLE INJ 100 MG in IV BAG 1 EACH IV ONE (09:30)
[2020-05-08] MEDS ORDERED: LEVOFLOXACIN INJ 500 MG in PREMIX 1 EACH IV ONE (09:30)
[2020-05-08] MEDS ORDERED: DEXTROSE 50% 25 GM/50 ML VIAL IV ONE (10:04)
[2020-05-08] MEDS ORDERED: ALBUTEROL/IPRATROPIUM 3 ML NEB RESP TX ONE ×2 (10:04→10:06)
[2020-05-08] MEDS ORDERED: NEOMYCIN/POLYMYXIN IRRIG SOLN 1 ML AMP BLADDERIRR ONE ×2 (10:09→10:24)
[2020-05-08] MEDS ORDERED: LACTATED RINGERS 1,000 ML IV SCH (10:30)
[2020-05-08] MEDS ORDERED: LEVOFLOXACIN INJ 100 ML IV ONE (10:36)
[2020-05-08] MEDS ORDERED: FLUCONAZOLE 100 MG TABLET PO ONE (11:07)
[2020-05-08] MEDS ORDERED: propofoL 200 MG/20 ML VIAL IV ONE (11:43)
[2020-05-08] MEDS ORDERED: LIDOCAINE 2% 5 ML VIAL ONE (11:44)
[2020-05-08] MEDS ORDERED: fentaNYL 100 MCG/2 ML VIAL ONE (11:44)
[2020-05-08] MEDS ORDERED: ROCURONIUM 100 MG/10 ML VIAL IV ONE (11:44)
[2020-05-08] MEDS ORDERED: SUCCINYLCHOLINE 200 MG/10 ML VIAL ONE (11:44)
[2020-05-08] MEDS ORDERED: PHENYLEPHRINE 1 MG/10 ML SYRINGE IV ONE (11:44)
[2020-05-08] MEDS ORDERED: FUROSEMIDE 20 MG/2 ML VIAL ONE (11:44)
[2020-05-08] MEDS ORDERED: ESMOLOL 100 MG/10 ML VIAL IV ONE (11:44)
[2020-05-08] MEDS ORDERED: SEVOFLURANE 1 UNIT/15 MINUTE INH ONE (11:44)
[2020-05-08 12:13] LABS: ABG Base Excess 2.2 MMOL/L (-2.5-2.5); ABG HCO3 26.4 MMOL/L (20-26); ABG PCO2 42.9 MM HG (35-48); ABG PH 7.408 (7.35-7.45); ABG PO2 95.6 MM HG (80-95); ABG TCO2 25.1 MMOL/L (23-27)
[2020-05-08] MEDS ORDERED: METOPROLOL TARTRATE 5 MG/5 ML VIAL IV ONE (12:59)
[2020-05-08] MEDS: DOCUSATE SODIUM 100 MG CAPSULE PO SCH ×2 (13:18→20:36)
[2020-05-08] MEDS: HYDROCORTISONE 100 MG VIAL IV SCH (13:18)
[2020-05-08] MEDS: PANTOPRAZOLE 40 MG VIAL IV SCH (13:18)
[2020-05-08] MEDS: DUTASTERIDE 0.5 MG CAPSULE PO SCH (13:19)
[2020-05-08] MEDS: OXYBUTYNIN XL 15 MG TABLET PO SCH (13:19)
[2020-05-08] MEDS: GLIMEPIRIDE 2 MG TABLET PO SCH (13:19)
[2020-05-08] MEDS: amLODIPine 5 MG TABLET PO SCH (13:19)
[2020-05-08] MEDS: FERROUS SULFATE 325 MG TABLET PO SCH (13:19)
[2020-05-08] MEDS: ATORVASTATIN 10 MG TABLET PO SCH (13:19)
[2020-05-08 13:56] LABS: Calcium 7.9 MG/DL (8.5-10.1); Osmolality,Calculated 277.4 MOS/KG (273-304)
[2020-05-08] MEDS ORDERED: MAGNESIUM SULF RIDER 4 GM in PREMIX 1 EACH IV PRN (14:10)
[2020-05-08] MEDS: MAGNESIUM SULF RIDER 2 GM in PREMIX 1 EACH IV PRN (14:14)
[2020-05-08] MEDS ORDERED: DILTIAZEM 50 MG/10 ML VIAL IV ONE ×2 (16:26→17:30)
[2020-05-08] MEDS: POTASSIUM CHLORIDE 20 MEQ TABLET PO PRN ×2 (17:22→20:36)
[2020-05-08] MEDS: ASCORBIC ACID 500 MG TABLET PO SCH (20:36)
[2020-05-08] MEDS: DILTIAZEM CD 120 MG CAPSULE PO SCH (20:36)
[2020-05-08] MEDS ORDERED: METOPROLOL TARTRATE 25 MG TABLET PO SCH (21:00)
[2020-05-09 07:09] LABS: Calcium 7.8 MG/DL (8.5-10.1); Osmolality,Calculated 281.1 MOS/KG (273-304)
[2020-05-09 09:01] LABS: Basophils % 0.1 % (0.0-0.8); Eosinophils # 0.1 10*3/uL (0.0-0.87); Eosinophils % 0.6 % (0.00-10.9); Hematocrit 26.3 VOL% (42.0-52.0); Hemoglobin 8.4 GM/DL (14.0-18.0); Immature Granulocytes Absolute 0.11 #; Lymphocytes # 1.5 10*3/uL (1.4-4.0); Lymphocytes % 13.8 % (21.2-54.2); Mean Corpuscular HGB Conc 31.9 GM/DL (32-36); Mean Platelet Volume 9.7 FL (9.6-12.0); Monocytes % 6.1 % (1.7-12.7); Neutrophils % 78.4 % (38.7-73.9); Platelet Count 192 T/CUMM (130-400); Red Blood Count 2.86 MC/CUMM (3.8-5.5); Red Cell Distribution Width 17.3 % (9.3-17.3); White Blood Count 11.1 T/CUMM (4-12)
[2020-05-09] MEDS: ASCORBIC ACID 500 MG TABLET PO SCH ×2 (10:04→21:37)
[2020-05-09] MEDS: GLIMEPIRIDE 2 MG TABLET PO SCH (10:05)
[2020-05-09] MEDS: DOCUSATE SODIUM 100 MG CAPSULE PO SCH ×2 (10:05→21:37)
[2020-05-09] MEDS: OXYBUTYNIN XL 15 MG TABLET PO SCH (10:05)
[2020-05-09] MEDS: DUTASTERIDE 0.5 MG CAPSULE PO SCH (10:05)
[2020-05-09] MEDS: FERROUS SULFATE 325 MG TABLET PO SCH (10:05)
[2020-05-09] MEDS: ATORVASTATIN 10 MG TABLET PO SCH (10:05)
[2020-05-09] MEDS: HYDROCORTISONE 100 MG VIAL IV SCH (10:06)
[2020-05-09] MEDS: INSULIN REGULAR 100 UNIT/ML SUBCUT SCH ×3 (10:06→19:09)
[2020-05-09] MEDS: PANTOPRAZOLE 40 MG VIAL IV SCH (10:06)
[2020-05-09] MEDS: DILTIAZEM CD 120 MG CAPSULE PO SCH (21:37)
[2020-05-09] MEDS ORDERED: FUROSEMIDE 40 MG/4 ML VIAL IV ONE (21:44)
[2020-05-09] MEDS ORDERED: cefTRIAXone 500 MG in SYRINGE 1 EACH IV SCH (22:00)
[2020-05-10] MEDS: INSULIN REGULAR 100 UNIT/ML SUBCUT SCH ×4 (00:51→21:38)
[2020-05-10] MEDS: hydrALAZINE 20 MG/1 ML VIAL IV PRN (00:54)
[2020-05-10] MEDS: ALBUTEROL/IPRATROPIUM 3 ML NEB RESP TX SCH ×4 (01:30→19:50)
[2020-05-10 06:15] LABS: Basophils % 0.2 % (0.0-0.8); Eosinophils % 0.1 % (0.00-10.9); Hematocrit 28.3 VOL% (42.0-52.0); Hemoglobin 8.6 GM/DL (14.0-18.0); Immature Granulocytes % 1.4 %; Immature Granulocytes Absolute 0.17 #; Lymphocytes # 1.8 10*3/uL (1.4-4.0); Lymphocytes % 14.5 % (21.2-54.2); Mean Corpuscular HGB Conc 30.4 GM/DL (32-36); Mean Corpuscular Volume 93.7 FL (87-102); Mean Platelet Volume 9.3 FL (9.6-12.0); Monocytes % 6.3 % (1.7-12.7); Neutrophils % 77.5 % (38.7-73.9); Platelet Count 219 T/CUMM (130-400); Red Blood Count 3.02 MC/CUMM (3.8-5.5); Red Cell Distribution Width 17.1 % (9.3-17.3); White Blood Count 12.3 T/CUMM (4-12)
[2020-05-10 06:35] LABS: Osmolality,Calculated 282.1 MOS/KG (273-304)
[2020-05-10] MEDS ORDERED: FUROSEMIDE 40 MG/4 ML VIAL IV SCH (09:00)
[2020-05-10] MEDS: ATORVASTATIN 10 MG TABLET PO SCH (09:04)
[2020-05-10] MEDS: DOCUSATE SODIUM 100 MG CAPSULE PO SCH ×2 (09:04→21:05)
[2020-05-10] MEDS: GLIMEPIRIDE 2 MG TABLET PO SCH (09:04)
[2020-05-10] MEDS: FERROUS SULFATE 325 MG TABLET PO SCH (09:05)
[2020-05-10] MEDS: POTASSIUM CHLORIDE 20 MEQ TABLET PO PRN (09:05)
[2020-05-10] MEDS: OXYBUTYNIN XL 15 MG TABLET PO SCH (09:05)
[2020-05-10] MEDS: ASCORBIC ACID 500 MG TABLET PO SCH ×2 (09:05→21:04)
[2020-05-10] MEDS: DUTASTERIDE 0.5 MG CAPSULE PO SCH (09:05)
[2020-05-10] MEDS: HYDROCORTISONE 100 MG VIAL IV SCH (09:08)
[2020-05-10] MEDS: PANTOPRAZOLE 40 MG VIAL IV SCH (09:09)
[2020-05-10] MEDS ORDERED: AMIODARONE INJ 150 MG in DEXTROSE 5% 100 ML IV ONE (10:15)
[2020-05-10] MEDS ORDERED: AMIODARONE INJ 450 MG in DEXTROSE 5% 241 ML IV SCH ×2 (10:15→14:30)
[2020-05-10] MEDS ORDERED: cloNIDine 0.1 MG TABLET PO ONE (11:04)
[2020-05-10] MEDS: BUDESONIDE 0.25 MG/2 ML NEB RESP TX SCH ×2 (12:57→19:50)
[2020-05-10] MEDS ORDERED: cloNIDine 0.1 MG TABLET PO PRN (14:00)
[2020-05-10] MEDS: FUROSEMIDE 40 MG/4 ML VIAL IV SCH (16:30)
[2020-05-10] MEDS ORDERED: cloNIDine 0.1 MG TABLET PO SCH (21:00)
[2020-05-10] MEDS: DILTIAZEM CD 120 MG CAPSULE PO SCH (21:04)
[2020-05-11] MEDS: cefTRIAXone 500 MG in SYRINGE 1 EACH IV SCH (01:29)
[2020-05-11 06:02] LABS: Basophils % 0.1 % (0.0-0.8); Eosinophils % 0.4 % (0.00-10.9); Hemoglobin 7.8 GM/DL (14.0-18.0); Lymphocytes # 1.3 10*3/uL (1.4-4.0); Lymphocytes % 12.7 % (21.2-54.2); Mean Corpuscular HGB Conc 31.2 GM/DL (32-36); Mean Corpuscular Volume 92.9 FL (87-102); Mean Platelet Volume 9.1 FL (9.6-12.0); Monocytes % 6.4 % (1.7-12.7); Neutrophils % 78.4 % (38.7-73.9); Platelet Count 204 T/CUMM (130-400); Red Blood Count 2.69 MC/CUMM (3.8-5.5); Red Cell Distribution Width 17.1 % (9.3-17.3); White Blood Count 10.1 T/CUMM (4-12)
[2020-05-11 06:18] LABS: Osmolality,Calculated 280.3 MOS/KG (273-304)
[2020-05-11] MEDS: BUDESONIDE 0.25 MG/2 ML NEB RESP TX SCH ×2 (07:43→19:14)
[2020-05-11] MEDS: ALBUTEROL/IPRATROPIUM 3 ML NEB RESP TX SCH ×3 (07:43→19:14)
[2020-05-11] MEDS: INSULIN REGULAR 100 UNIT/ML SUBCUT SCH ×4 (08:05→21:15)
[2020-05-11] MEDS ORDERED: METOPROLOL TARTRATE 5 MG/5 ML VIAL IV ONE (08:32)
[2020-05-11] MEDS: FUROSEMIDE 40 MG/4 ML VIAL IV SCH ×2 (08:40→16:31)
[2020-05-11] MEDS ORDERED: POTASSIUM CHLORIDE 20 MEQ TABLET PO ONE (08:40)
[2020-05-11] MEDS: PANTOPRAZOLE 40 MG VIAL IV SCH (08:41)
[2020-05-11] MEDS: HYDROCORTISONE 100 MG VIAL IV SCH (08:41)
[2020-05-11] MEDS: OXYBUTYNIN XL 15 MG TABLET PO SCH (08:42)
[2020-05-11] MEDS: ASCORBIC ACID 500 MG TABLET PO SCH ×2 (08:42→20:48)
[2020-05-11] MEDS: DUTASTERIDE 0.5 MG CAPSULE PO SCH (08:42)
[2020-05-11] MEDS: DOCUSATE SODIUM 100 MG CAPSULE PO SCH ×2 (08:42→20:54)
[2020-05-11] MEDS: GLIMEPIRIDE 2 MG TABLET PO SCH (08:42)
[2020-05-11] MEDS: FERROUS SULFATE 325 MG TABLET PO SCH (08:43)
[2020-05-11] MEDS: DILTIAZEM CD 240 MG CAPSULE PO SCH (08:43)
[2020-05-11] MEDS: ATORVASTATIN 10 MG TABLET PO SCH (08:43)
[2020-05-11] MEDS: POTASSIUM CHLORIDE 20 MEQ TABLET PO PRN (08:43)
[2020-05-11] MEDS: METOPROLOL TARTRATE 25 MG TABLET PO SCH ×2 (10:19→20:54)
[2020-05-12] MEDS: ALBUTEROL/IPRATROPIUM 3 ML NEB RESP TX SCH ×3 (00:07→13:43)
[2020-05-12] MEDS: cefTRIAXone 500 MG in SYRINGE 1 EACH IV SCH (00:55)
[2020-05-12] MEDS ORDERED: METOPROLOL TARTRATE 25 MG TABLET PO SCH (06:01)
[2020-05-12 06:31] LABS: Basophils % 0.1 % (0.0-0.8); Eosinophils # 0.1 10*3/uL (0.0-0.87); Eosinophils % 0.5 % (0.00-10.9); Hematocrit 24.8 VOL% (42.0-52.0); Immature Granulocytes % 1.9 %; Lymphocytes # 1.2 10*3/uL (1.4-4.0); Lymphocytes % 11.1 % (21.2-54.2); Mean Corpuscular HGB Conc 32.3 GM/DL (32-36); Mean Corpuscular Volume 90.8 FL (87-102); Mean Platelet Volume 9.5 FL (9.6-12.0); Monocytes % 7.2 % (1.7-12.7); Neutrophils % 79.2 % (38.7-73.9); Platelet Count 202 T/CUMM (130-400); Red Blood Count 2.73 MC/CUMM (3.8-5.5); Red Cell Distribution Width 17.2 % (9.3-17.3); White Blood Count 10.5 T/CUMM (4-12)
[2020-05-12 06:53] LABS: Osmolality,Calculated 281.1 MOS/KG (273-304)
[2020-05-12] MEDS: BUDESONIDE 0.25 MG/2 ML NEB RESP TX SCH (07:30)
[2020-05-12] MEDS: PANTOPRAZOLE 40 MG VIAL IV SCH (08:16)
[2020-05-12] MEDS: POTASSIUM CHLORIDE 20 MEQ TABLET PO PRN ×4 (08:17→12:48)
[2020-05-12] MEDS: HYDROCORTISONE 100 MG VIAL IV SCH (08:17)
[2020-05-12] MEDS: DOCUSATE SODIUM 100 MG CAPSULE PO SCH (08:17)
[2020-05-12] MEDS: DILTIAZEM CD 240 MG CAPSULE PO SCH (08:18)
[2020-05-12] MEDS: GLIMEPIRIDE 2 MG TABLET PO SCH (08:19)
[2020-05-12] MEDS: ASCORBIC ACID 500 MG TABLET PO SCH (08:19)
[2020-05-12] MEDS: OXYBUTYNIN XL 15 MG TABLET PO SCH (08:19)
[2020-05-12] MEDS: DUTASTERIDE 0.5 MG CAPSULE PO SCH (08:20)
[2020-05-12] MEDS: FERROUS SULFATE 325 MG TABLET PO SCH (08:21)
[2020-05-12] MEDS: ATORVASTATIN 10 MG TABLET PO SCH (08:21)
[2020-05-12] MEDS: MAGNESIUM SULF RIDER 2 GM in PREMIX 1 EACH IV PRN (08:21)
[2020-05-12] MEDS: INSULIN REGULAR 100 UNIT/ML SUBCUT SCH ×2 (09:01→12:15)
[2020-05-12] MEDS: FUROSEMIDE 40 MG/4 ML VIAL IV SCH ×2 (09:35→09:45)
[2020-05-12 16:17] VITALS: BP 116/67
== END 2020-05-12 16:48 | disposition home health service (06) | DRG 853 ==
LOC: N.EDINP 09:16 → N.ED 09:16 → SUATTDRO 11:16 → N.TELEN 11:42 → N.ICU 12:55 → SUATTDRO 16:57 → N.TELEN 04-12 12:10 → N.CVR 04-13 12:25 → N.ICU 04-14 14:47 → N.4E 04-21 17:44 → N.TELES 05-10 10:03
PROVIDERS: ADMIT Family Medicine; ATTEND Family Medicine

== ENCOUNTER 2020-05-14 17:15 | Inpatient (IN) ==
[2020-05-14] MEDS ORDERED: ONDANSETRON 4 MG/2 ML VIAL IV STA (18:36)
[2020-05-14] MEDS ORDERED: SODIUM CHLORIDE 0.9% 500 ML IV STA (18:36)
[2020-05-14 18:49] LABS: Basophils % 0.2 % (0.0-0.8); Eosinophils # 0.1 10*3/uL (0.0-0.87); Eosinophils % 0.7 % (0.00-10.9); Hematocrit 31.3 VOL% (42.0-52.0); Hemoglobin 9.6 GM/DL (14.0-18.0); Immature Granulocytes % 3.9 %; Immature Granulocytes Absolute 0.48 #; Lymphocytes # 1.3 10*3/uL (1.4-4.0); Lymphocytes % 10.6 % (21.2-54.2); Mean Corpuscular HGB Conc 30.7 GM/DL (32-36); Mean Corpuscular Volume 94.6 FL (87-102); Mean Platelet Volume 9.5 FL (9.6-12.0); Monocytes % 5.1 % (1.7-12.7); NRBC # 0.02 10*3/uL; Neutrophils % 79.5 % (38.7-73.9); Platelet Count 277 T/CUMM (130-400); Red Blood Count 3.31 MC/CUMM (3.8-5.5); Red Cell Distribution Width 17.9 % (9.3-17.3); White Blood Count 12.4 T/CUMM (4-12)
[2020-05-14 18:56] LABS: INR 1.1; PT Patient Result 12.1 SECS (9.8-11.9)
[2020-05-14 19:02] LABS: Alanine Aminotransferase 13 U/L (16-61); Albumin 2.2 G/DL (3.4-5.0); Alkaline Phosphatase 62 U/L (45-117); Aspartate Amino Transferase 24 U/L (0-37); Blood Urea Nitrogen 20 MG/DL (7-18); Calcium 8.1 MG/DL (8.5-10.1); Estimated Glom Filtration Rate 60 ML/MIN; Glucose 155 MG/DL (74-106); Osmolality,Calculated 286.3 MOS/KG (273-304); Total Protein 6.6 G/DL (6.4-8.3); Troponin I 0.019 NG/ML (0.00-0.045)
[2020-05-15] MEDS ORDERED: HEPARIN 1,000 UNIT/1 ML VIAL IV STA (01:00)
[2020-05-15] MEDS: HEPARIN DRIP 25,000 UNITS/500 ML PREMIX IV SCH ×2 (01:30→18:58)
[2020-05-15] MEDS ORDERED: HEPARIN 5,000 UNIT/1 ML VIAL ONE (02:10)
[2020-05-15] MEDS ORDERED: MORPHINE 4 MG/1 ML VIAL IV PRN (04:21)
[2020-05-15] MEDS ORDERED: SODIUM CHLORIDE 0.9% 1,000 ML IV SCH (04:21)
[2020-05-15] MEDS ORDERED: DEXTROSE 50% 25 GM/50 ML VIAL IV PRN (04:21)
[2020-05-15] MEDS ORDERED: GLUCAGON 1 MG VIAL IM PRN ×2 (04:21)
[2020-05-15] MEDS: INSULIN REGULAR 100 UNIT/ML SUBCUT SCH ×3 (05:51→18:09)
[2020-05-15] MEDS: ALBUTEROL/IPRATROPIUM 3 ML NEB RESP TX SCH ×3 (07:11→19:37)
[2020-05-15 09:23] LABS: Amorphous Crystals,Urine Few /HPF (Few); Apearance,Urine CLOUDY (Clear); Bilirubin,Urine Negative (Negative); Blood, Urine Large mg/dL (Negative); Glucose,Urine (UA) Negative (Negative); Ketones,Urine 5 mg/dL (Negative); Nitrite,Urine Negative (Negative); Protein,Urine 100 MG/DL; RBC,Urine 78 /HPF (0-4); Urine Color Amber (Yellow); WBC,Urine 91 /HPF (0-6)
[2020-05-15] MEDS: DILTIAZEM CD 240 MG CAPSULE PO SCH (09:33)
[2020-05-15] MEDS: CEFUROXIME 500 MG TABLET PO SCH ×2 (09:33→17:32)
[2020-05-15] MEDS: METOPROLOL TARTRATE 50 MG TABLET PO SCH ×2 (09:33→21:00)
[2020-05-15] MEDS: PANTOPRAZOLE 40 MG VIAL IV SCH (09:33)
[2020-05-15] MEDS: FERROUS SULFATE 325 MG TABLET PO SCH (09:33)
[2020-05-15] MEDS: DUTASTERIDE 0.5 MG CAPSULE PO SCH (09:33)
[2020-05-15] MEDS: DEXTROSE 50% 25 GM/50 ML VIAL IV PRN (18:40)
[2020-05-16] MEDS: INSULIN REGULAR 100 UNIT/ML SUBCUT SCH ×5 (00:31→20:23)
[2020-05-16] MEDS: ONDANSETRON 4 MG/2 ML VIAL IV PRN (00:31)
[2020-05-16] MEDS: ALBUTEROL/IPRATROPIUM 3 ML NEB RESP TX SCH ×4 (02:00→19:50)
[2020-05-16 03:17] LABS: Basophils % 0.3 % (0.0-0.8); Eosinophils % 0.3 % (0.00-10.9); Hematocrit 27.6 VOL% (42.0-52.0); Hemoglobin 8.2 GM/DL (14.0-18.0); Immature Granulocytes % 2.5 %; Immature Granulocytes Absolute 0.38 #; Lymphocytes # 1.2 10*3/uL (1.4-4.0); Lymphocytes % 8.2 % (21.2-54.2); Mean Corpuscular HGB Conc 29.7 GM/DL (32-36); Mean Corpuscular Volume 97.9 FL (87-102); Monocytes % 4.5 % (1.7-12.7); NRBC # 0.03 10*3/uL; Neutrophils % 84.2 % (38.7-73.9); Platelet Count 214 T/CUMM (130-400); Red Blood Count 2.82 MC/CUMM (3.8-5.5); Red Cell Distribution Width 17.9 % (9.3-17.3); White Blood Count 15.2 T/CUMM (4-12)
[2020-05-16 03:37] LABS: Bilirubin,Total 1.3 MG/DL (0.2-1.0); Calcium 7.9 MG/DL (8.5-10.1); Risk Ratio 2.07; Total Protein 6.2 G/DL (6.4-8.3); VLDL CHOLESTEROL 14.2 MG/DL
[2020-05-16] MEDS: DILTIAZEM CD 240 MG CAPSULE PO SCH (08:41)
[2020-05-16] MEDS: DUTASTERIDE 0.5 MG CAPSULE PO SCH (08:41)
[2020-05-16] MEDS: FERROUS SULFATE 325 MG TABLET PO SCH (08:41)
[2020-05-16] MEDS: CEFUROXIME 500 MG TABLET PO SCH ×2 (08:41→17:46)
[2020-05-16] MEDS: METOPROLOL TARTRATE 50 MG TABLET PO SCH ×2 (08:42→20:05)
[2020-05-16] MEDS: PANTOPRAZOLE 40 MG VIAL IV SCH (08:42)
[2020-05-16] MEDS: POTASSIUM CHLORIDE 20 MEQ TABLET PO PRN ×3 (09:41→17:47)
[2020-05-16] MEDS: HEPARIN DRIP 25,000 UNITS/500 ML PREMIX IV SCH ×2 (12:51→20:35)
[2020-05-16] MEDS ORDERED: DEXTROSE 50% 25 GM/50 ML VIAL IV PRN (13:11)
[2020-05-16] MEDS ORDERED: GLUCAGON 1 MG VIAL IM PRN (13:11)
[2020-05-16] MEDS ORDERED: SODIUM CHLORIDE 0.9% 500 ML IV ONE (13:43)
[2020-05-16] MEDS ORDERED: NOREPINEPHRINE 8 MG in SODIUM CHLORIDE 0.9% 242 ML IV PRN (14:26)
[2020-05-16 14:34] LABS: ABG Base Excess 2.6 MMOL/L (-2.5-2.5); ABG HCO3 25.6 MMOL/L (20-26); ABG Oxygen Saturation 15.1 % (95-100); ABG PCO2 54.2 MM HG (35-48); ABG PH 7.338 (7.35-7.45); ABG TCO2 27.7 MMOL/L (23-27); Glucose Heart Surgery 148 MG/DL (74-106); Hematocrit Heart Surgery 25.5 PERCENT (42-52); Hemoglobin Heart Surgery 8.2 G/DL (14.0-18.0); Potassium Heart/CVR 3.7 MMOL/L (3.5-5.1)
[2020-05-16 14:37] LABS: ABG PO2 16.6 MM HG (80-95)
[2020-05-16 15:46] LABS: ABG Base Excess 2.1 MMOL/L (-2.5-2.5); ABG HCO3 26.2 MMOL/L (20-26); ABG Oxygen Saturation 92.1 % (95-100); ABG PCO2 39.6 MM HG (35-48); ABG PH 7.433 (7.35-7.45); ABG PO2 64.6 MM HG (80-95); ABG TCO2 24.6 MMOL/L (23-27)
[2020-05-16] MEDS: guaiFENesin/CODEINE 5 ML LIQUID PO PRN (20:05)
[2020-05-17] MEDS: ALBUTEROL/IPRATROPIUM 3 ML NEB RESP TX SCH ×3 (02:50→13:08)
[2020-05-17] MEDS: INSULIN REGULAR 100 UNIT/ML SUBCUT SCH ×4 (07:48→20:38)
[2020-05-17] MEDS: METOPROLOL TARTRATE 50 MG TABLET PO SCH ×2 (09:25→20:38)
[2020-05-17] MEDS: CEFUROXIME 500 MG TABLET PO SCH (09:27)
[2020-05-17] MEDS: FERROUS SULFATE 325 MG TABLET PO SCH (09:27)
[2020-05-17] MEDS: DUTASTERIDE 0.5 MG CAPSULE PO SCH (09:27)
[2020-05-17] MEDS: ATORVASTATIN 10 MG TABLET PO SCH (09:28)
[2020-05-17] MEDS: PANTOPRAZOLE 40 MG VIAL IV SCH (09:28)
[2020-05-17 09:31] LABS: Basophils % 0.1 % (0.0-0.8); Eosinophils # 0.1 10*3/uL (0.0-0.87); Eosinophils % 0.6 % (0.00-10.9); Hematocrit 26.3 VOL% (42.0-52.0); Hemoglobin 7.8 GM/DL (14.0-18.0); Immature Granulocytes % 2.1 %; Lymphocytes # 1.4 10*3/uL (1.4-4.0); Lymphocytes % 9.5 % (21.2-54.2); Mean Corpuscular HGB Conc 29.7 GM/DL (32-36); Mean Corpuscular Volume 98.5 FL (87-102); Mean Platelet Volume 9.4 FL (9.6-12.0); Monocytes % 4.5 % (1.7-12.7); Neutrophils % 83.2 % (38.7-73.9); Platelet Count 232 T/CUMM (130-400); Red Blood Count 2.67 MC/CUMM (3.8-5.5); Red Cell Distribution Width 18.4 % (9.3-17.3); White Blood Count 14.3 T/CUMM (4-12)
[2020-05-17 09:53] LABS: Calcium 7.9 MG/DL (8.5-10.1); Osmolality,Calculated 286.1 MOS/KG (273-304)
[2020-05-17] MEDS: DILTIAZEM CD 240 MG CAPSULE PO SCH (09:55)
[2020-05-17] MEDS ORDERED: MAGNESIUM SULF RIDER 4 GM in PREMIX 1 EACH IV PRN (10:17)
[2020-05-17] MEDS: POTASSIUM CHLORIDE 20 MEQ TABLET PO PRN ×2 (11:04→16:44)
[2020-05-17] MEDS: MAGNESIUM SULF RIDER 2 GM in PREMIX 1 EACH IV PRN (11:05)
[2020-05-17] MEDS: FUROSEMIDE 40 MG/4 ML VIAL IV SCH ×2 (11:06→16:13)
[2020-05-17] MEDS: cefTRIAXone 1,000 MG in SYRINGE 1 EACH IV SCH (16:13)
[2020-05-17] MEDS: HEPARIN DRIP 25,000 UNITS/500 ML PREMIX IV SCH (20:41)
[2020-05-18] MEDS: ALBUTEROL/IPRATROPIUM 3 ML NEB RESP TX SCH ×3 (07:50→19:41)
[2020-05-18] MEDS: INSULIN REGULAR 100 UNIT/ML SUBCUT SCH ×4 (07:52→21:35)
[2020-05-18] MEDS: ATORVASTATIN 10 MG TABLET PO SCH (08:29)
[2020-05-18] MEDS: METOPROLOL TARTRATE 50 MG TABLET PO SCH ×2 (08:29→21:21)
[2020-05-18] MEDS: FERROUS SULFATE 325 MG TABLET PO SCH (08:29)
[2020-05-18] MEDS: DUTASTERIDE 0.5 MG CAPSULE PO SCH (08:29)
[2020-05-18] MEDS: DILTIAZEM CD 240 MG CAPSULE PO SCH (08:29)
[2020-05-18] MEDS: PANTOPRAZOLE 40 MG VIAL IV SCH (08:30)
[2020-05-18] MEDS: FUROSEMIDE 40 MG/4 ML VIAL IV SCH ×2 (08:30→15:20)
[2020-05-18] MEDS: LINEZOLID INJ 600 MG in PREMIX 1 EACH IV SCH ×2 (08:31→21:21)
[2020-05-18] MEDS: guaiFENesin/CODEINE 5 ML LIQUID PO PRN (08:44)
[2020-05-18] MEDS: HEPARIN DRIP 25,000 UNITS/500 ML PREMIX IV SCH ×2 (11:39→15:00)
[2020-05-18] MEDS: cefTRIAXone 1,000 MG in SYRINGE 1 EACH IV SCH (15:20)
[2020-05-19] MEDS: ALBUTEROL/IPRATROPIUM 3 ML NEB RESP TX SCH ×6 (01:09→19:35)
[2020-05-19 05:23] LABS: Basophils % 0.4 % (0.0-0.8); Eosinophils # 0.1 10*3/uL (0.0-0.87); Eosinophils % 0.8 % (0.00-10.9); Hematocrit 25.6 VOL% (42.0-52.0); Hemoglobin 7.5 GM/DL (14.0-18.0); Immature Granulocytes % 2.9 %; Immature Granulocytes Absolute 0.27 #; Lymphocytes # 1.2 10*3/uL (1.4-4.0); Mean Corpuscular HGB Conc 29.3 GM/DL (32-36); Monocytes % 5.7 % (1.7-12.7); Neutrophils % 77.2 % (38.7-73.9); Platelet Count 207 T/CUMM (130-400); Red Blood Count 2.56 MC/CUMM (3.8-5.5); Red Cell Distribution Width 18.3 % (9.3-17.3); White Blood Count 9.5 T/CUMM (4-12)
[2020-05-19 05:35] LABS: Calcium 7.7 MG/DL (8.5-10.1); Osmolality,Calculated 283.1 MOS/KG (273-304)
[2020-05-19] MEDS: POTASSIUM CHLORIDE 20 MEQ TABLET PO PRN ×2 (05:45→08:06)
[2020-05-19] MEDS: PANTOPRAZOLE 40 MG VIAL IV SCH (08:05)
[2020-05-19] MEDS: LINEZOLID INJ 600 MG in PREMIX 1 EACH IV SCH ×2 (08:05→20:54)
[2020-05-19] MEDS: METOPROLOL TARTRATE 50 MG TABLET PO SCH ×2 (08:06→20:54)
[2020-05-19] MEDS: FERROUS SULFATE 325 MG TABLET PO SCH (08:06)
[2020-05-19] MEDS: ATORVASTATIN 10 MG TABLET PO SCH (08:06)
[2020-05-19] MEDS: DUTASTERIDE 0.5 MG CAPSULE PO SCH (08:06)
[2020-05-19] MEDS: FUROSEMIDE 40 MG/4 ML VIAL IV SCH ×2 (08:06→15:48)
[2020-05-19] MEDS: DILTIAZEM CD 240 MG CAPSULE PO SCH (08:06)
[2020-05-19] MEDS ORDERED: MAGNESIUM SULF RIDER 2 GM in PREMIX 1 EACH IV ONE (08:14)
[2020-05-19] MEDS: INSULIN REGULAR 100 UNIT/ML SUBCUT SCH ×4 (08:26→20:53)
[2020-05-19] MEDS: POTASSIUM CHLORIDE 20 MEQ TABLET PO SCH ×4 (08:26→20:53)
[2020-05-19] MEDS: HEPARIN DRIP 25,000 UNITS/500 ML PREMIX IV SCH (12:36)
[2020-05-19] MEDS: guaiFENesin/CODEINE 5 ML LIQUID PO PRN (15:39)
[2020-05-19] MEDS: cefTRIAXone 1,000 MG in SYRINGE 1 EACH IV SCH (15:47)
[2020-05-20] MEDS: ALBUTEROL/IPRATROPIUM 3 ML NEB RESP TX SCH ×4 (00:36→19:39)
[2020-05-20] MEDS: HEPARIN DRIP 25,000 UNITS/500 ML PREMIX IV SCH ×2 (02:17→17:58)
[2020-05-20 05:29] LABS: Basophils % 0.5 % (0.0-0.8); Eosinophils # 0.1 10*3/uL (0.0-0.87); Eosinophils % 0.8 % (0.00-10.9); Hematocrit 26.9 VOL% (42.0-52.0); Hemoglobin 7.9 GM/DL (14.0-18.0); Immature Granulocytes % 3.1 %; Immature Granulocytes Absolute 0.27 #; Lymphocytes # 1.3 10*3/uL (1.4-4.0); Lymphocytes % 15.1 % (21.2-54.2); Mean Corpuscular HGB Conc 29.4 GM/DL (32-36); Mean Corpuscular Volume 99.3 FL (87-102); Mean Platelet Volume 9.2 FL (9.6-12.0); Monocytes % 6.8 % (1.7-12.7); Neutrophils % 73.7 % (38.7-73.9); Platelet Count 205 T/CUMM (130-400); Red Blood Count 2.71 MC/CUMM (3.8-5.5); Red Cell Distribution Width 18.6 % (9.3-17.3); White Blood Count 8.6 T/CUMM (4-12)
[2020-05-20 05:59] LABS: Albumin 1.8 G/DL (3.4-5.0); Bilirubin,Total 1.6 MG/DL (0.2-1.0); Calcium 7.7 MG/DL (8.5-10.1); Osmolality,Calculated 277.5 MOS/KG (273-304); Total Protein 5.6 G/DL (6.4-8.3)
[2020-05-20] MEDS: METOPROLOL TARTRATE 50 MG TABLET PO SCH ×2 (08:04→21:40)
[2020-05-20] MEDS: DUTASTERIDE 0.5 MG CAPSULE PO SCH (08:04)
[2020-05-20] MEDS: DILTIAZEM CD 240 MG CAPSULE PO SCH (08:05)
[2020-05-20] MEDS: POTASSIUM CHLORIDE 20 MEQ TABLET PO PRN (08:05)
[2020-05-20] MEDS: FUROSEMIDE 40 MG/4 ML VIAL IV SCH ×2 (08:05→16:14)
[2020-05-20] MEDS: PANTOPRAZOLE 40 MG VIAL IV SCH (08:05)
[2020-05-20] MEDS: FERROUS SULFATE 325 MG TABLET PO SCH (08:05)
[2020-05-20] MEDS: ATORVASTATIN 10 MG TABLET PO SCH (08:22)
[2020-05-20] MEDS: INSULIN REGULAR 100 UNIT/ML SUBCUT SCH ×4 (08:22→21:42)
[2020-05-20] MEDS: LINEZOLID INJ 600 MG in PREMIX 1 EACH IV SCH ×2 (08:22→21:54)
[2020-05-20] MEDS: POTASSIUM CHLORIDE 20 MEQ TABLET PO SCH ×4 (09:12→21:40)
[2020-05-20] MEDS: cefTRIAXone 1,000 MG in SYRINGE 1 EACH IV SCH (14:54)
[2020-05-21] MEDS: ALBUTEROL/IPRATROPIUM 3 ML NEB RESP TX SCH ×4 (01:20→19:40)
[2020-05-21] MEDS: HEPARIN DRIP 25,000 UNITS/500 ML PREMIX IV SCH ×2 (02:11→10:15)
[2020-05-21 05:00] LABS: Basophils % 0.6 % (0.0-0.8); Eosinophils # 0.1 10*3/uL (0.0-0.87); Eosinophils % 1.2 % (0.00-10.9); Hematocrit 27.5 VOL% (42.0-52.0); Hemoglobin 8.2 GM/DL (14.0-18.0); Immature Granulocytes % 2.5 %; Immature Granulocytes Absolute 0.18 #; Lymphocytes # 1.2 10*3/uL (1.4-4.0); Mean Corpuscular HGB Conc 29.8 GM/DL (32-36); Mean Corpuscular Volume 97.2 FL (87-102); Mean Platelet Volume 9.7 FL (9.6-12.0); Monocytes % 6.4 % (1.7-12.7); Neutrophils % 73.3 % (38.7-73.9); Platelet Count 225 T/CUMM (130-400); Red Blood Count 2.83 MC/CUMM (3.8-5.5); Red Cell Distribution Width 18.6 % (9.3-17.3); White Blood Count 7.2 T/CUMM (4-12)
[2020-05-21 05:15] LABS: Albumin 1.8 G/DL (3.4-5.0); Calcium 7.7 MG/DL (8.5-10.1); Osmolality,Calculated 278.4 MOS/KG (273-304); Total Protein 5.7 G/DL (6.4-8.3)
[2020-05-21 05:33] LABS: Eosinophils 1 % (0-10); Hypochromasia 1+; Lymphocytes 19 % (20-55); Ovalocytes Slight; Platelet Estimate Adequate; Segmented Neutrophils 75 % (50-85); Total Cells Counted 100
[2020-05-21] MEDS: POTASSIUM CHLORIDE 20 MEQ TABLET PO PRN ×6 (05:45→22:10)
[2020-05-21] MEDS: INSULIN REGULAR 100 UNIT/ML SUBCUT SCH ×4 (07:53→21:02)
[2020-05-21] MEDS: LINEZOLID INJ 600 MG in PREMIX 1 EACH IV SCH ×2 (08:47→21:16)
[2020-05-21] MEDS: DILTIAZEM CD 240 MG CAPSULE PO SCH (08:48)
[2020-05-21] MEDS: FUROSEMIDE 40 MG/4 ML VIAL IV SCH ×2 (08:49→15:14)
[2020-05-21] MEDS: DUTASTERIDE 0.5 MG CAPSULE PO SCH (08:49)
[2020-05-21] MEDS: ATORVASTATIN 10 MG TABLET PO SCH (08:49)
[2020-05-21] MEDS: FERROUS SULFATE 325 MG TABLET PO SCH (08:49)
[2020-05-21] MEDS: PANTOPRAZOLE 40 MG VIAL IV SCH (08:49)
[2020-05-21] MEDS: METOPROLOL TARTRATE 50 MG TABLET PO SCH ×2 (08:49→22:10)
[2020-05-21] MEDS ORDERED: DEXTROSE 5% IV ONE (09:29)
[2020-05-21] MEDS ORDERED: IRINOTECAN IV ONE (09:29)
[2020-05-21] MEDS ORDERED: ATROPINE 1 MG/10 ML SYRINGE IV ONE (09:30)
[2020-05-21] MEDS ORDERED: DEXAMETHASONE 10 MG/1 ML VIAL IV ONE (09:31)
[2020-05-21] MEDS: cefTRIAXone 1,000 MG in SYRINGE 1 EACH IV SCH (15:13)
[2020-05-22] MEDS: ALBUTEROL/IPRATROPIUM 3 ML NEB RESP TX SCH ×4 (00:25→19:30)
[2020-05-22] MEDS: POTASSIUM CHLORIDE 20 MEQ TABLET PO PRN ×4 (00:44→11:31)
[2020-05-22] MEDS: HEPARIN DRIP 25,000 UNITS/500 ML PREMIX IV SCH (02:57)
[2020-05-22 05:18] LABS: Basophils % 0.6 % (0.0-0.8); Eosinophils # 0.1 10*3/uL (0.0-0.87); Eosinophils % 1.2 % (0.00-10.9); Hematocrit 30.6 VOL% (42.0-52.0); Hemoglobin 9.2 GM/DL (14.0-18.0); Immature Granulocytes Absolute 0.13 #; Lymphocytes # 1.3 10*3/uL (1.4-4.0); Lymphocytes % 19.5 % (21.2-54.2); Mean Corpuscular HGB Conc 30.1 GM/DL (32-36); Mean Corpuscular Volume 97.8 FL (87-102); Monocytes % 7.9 % (1.7-12.7); Neutrophils % 68.8 % (38.7-73.9); Platelet Count 210 T/CUMM (130-400); Red Blood Count 3.13 MC/CUMM (3.8-5.5); Red Cell Distribution Width 18.8 % (9.3-17.3); White Blood Count 6.6 T/CUMM (4-12)
[2020-05-22 05:40] LABS: Bilirubin,Total 1.6 MG/DL (0.2-1.0); Osmolality,Calculated 280.3 MOS/KG (273-304); Total Protein 5.9 G/DL (6.4-8.3)
[2020-05-22] MEDS: INSULIN REGULAR 100 UNIT/ML SUBCUT SCH ×4 (08:39→20:55)
[2020-05-22] MEDS: LINEZOLID INJ 600 MG in PREMIX 1 EACH IV SCH ×2 (09:05→20:56)
[2020-05-22] MEDS: DUTASTERIDE 0.5 MG CAPSULE PO SCH (09:05)
[2020-05-22] MEDS: METOPROLOL TARTRATE 50 MG TABLET PO SCH ×2 (09:05→20:55)
[2020-05-22] MEDS: ATORVASTATIN 10 MG TABLET PO SCH (09:05)
[2020-05-22] MEDS: FERROUS SULFATE 325 MG TABLET PO SCH (09:05)
[2020-05-22] MEDS: PANTOPRAZOLE 40 MG VIAL IV SCH (09:08)
[2020-05-22] MEDS: DILTIAZEM CD 240 MG CAPSULE PO SCH (09:10)
[2020-05-22] MEDS: FUROSEMIDE 40 MG/4 ML VIAL IV SCH ×2 (09:11→16:52)
[2020-05-22 11:04] LABS: DRVVT Screen Ratio 0.98 ratio (<1.20); INR 1.3 (0.9-1.1)
[2020-05-22] MEDS: GRANISETRON 1 MG/1 ML VIAL IV SCH (12:27)
[2020-05-22 15:51] LABS: Phospholipid Ab IgM, S < 9.4 MPL
[2020-05-22] MEDS: cefTRIAXone 1,000 MG in SYRINGE 1 EACH IV SCH (16:49)
[2020-05-23] MEDS: HEPARIN DRIP 25,000 UNITS/500 ML PREMIX IV SCH (00:26)
[2020-05-23] MEDS: ALBUTEROL/IPRATROPIUM 3 ML NEB RESP TX SCH ×4 (01:00→20:40)
[2020-05-23] MEDS: INSULIN REGULAR 100 UNIT/ML SUBCUT SCH ×4 (08:31→20:32)
[2020-05-23] MEDS: LINEZOLID INJ 600 MG in PREMIX 1 EACH IV SCH ×2 (09:32→20:21)
[2020-05-23] MEDS: DILTIAZEM CD 240 MG CAPSULE PO SCH (09:33)
[2020-05-23] MEDS: DUTASTERIDE 0.5 MG CAPSULE PO SCH (09:33)
[2020-05-23] MEDS: METOPROLOL TARTRATE 50 MG TABLET PO SCH ×2 (09:33→20:32)
[2020-05-23] MEDS: ATORVASTATIN 10 MG TABLET PO SCH (09:33)
[2020-05-23] MEDS: APIXABAN 5 MG TABLET PO SCH ×2 (09:33→20:20)
[2020-05-23] MEDS: FERROUS SULFATE 325 MG TABLET PO SCH (09:33)
[2020-05-23] MEDS: PANTOPRAZOLE 40 MG VIAL IV SCH (09:34)
[2020-05-23] MEDS: GRANISETRON 1 MG/1 ML VIAL IV SCH (09:36)
[2020-05-23] MEDS: FUROSEMIDE 40 MG/4 ML VIAL IV SCH ×2 (09:38→16:20)
[2020-05-23] MEDS: cefTRIAXone 1,000 MG in SYRINGE 1 EACH IV SCH (16:16)
[2020-05-24] MEDS: ALBUTEROL/IPRATROPIUM 3 ML NEB RESP TX SCH ×4 (01:03→19:26)
[2020-05-24 05:12] LABS: Basophils % 0.3 % (0.0-0.8); Eosinophils # 0.1 10*3/uL (0.0-0.87); Hematocrit 27.7 VOL% (42.0-52.0); Hemoglobin 8.2 GM/DL (14.0-18.0); Immature Granulocytes % 1.2 %; Immature Granulocytes Absolute 0.07 #; Lymphocytes # 1.4 10*3/uL (1.4-4.0); Lymphocytes % 23.6 % (21.2-54.2); Mean Corpuscular HGB Conc 29.6 GM/DL (32-36); Mean Corpuscular Volume 97.9 FL (87-102); Mean Platelet Volume 9.2 FL (9.6-12.0); Monocytes % 7.1 % (1.7-12.7); Neutrophils % 66.8 % (38.7-73.9); Platelet Count 219 T/CUMM (130-400); Red Blood Count 2.83 MC/CUMM (3.8-5.5); Red Cell Distribution Width 18.6 % (9.3-17.3); White Blood Count 6.1 T/CUMM (4-12)
[2020-05-24 06:06] LABS: Free PSA/PSA Ratio 0.15 ratio
[2020-05-24] MEDS: INSULIN REGULAR 100 UNIT/ML SUBCUT SCH ×4 (08:18→21:04)
[2020-05-24] MEDS: LINEZOLID INJ 600 MG in PREMIX 1 EACH IV SCH ×2 (08:44→21:05)
[2020-05-24] MEDS: PANTOPRAZOLE 40 MG VIAL IV SCH (08:47)
[2020-05-24] MEDS: FUROSEMIDE 40 MG/4 ML VIAL IV SCH ×2 (08:49→16:28)
[2020-05-24] MEDS: DILTIAZEM CD 240 MG CAPSULE PO SCH (08:51)
[2020-05-24] MEDS: APIXABAN 5 MG TABLET PO SCH ×2 (08:51→21:03)
[2020-05-24] MEDS: DUTASTERIDE 0.5 MG CAPSULE PO SCH (08:51)
[2020-05-24] MEDS: ATORVASTATIN 10 MG TABLET PO SCH (08:51)
[2020-05-24] MEDS: GRANISETRON 1 MG/1 ML VIAL IV SCH (08:51)
[2020-05-24] MEDS: FERROUS SULFATE 325 MG TABLET PO SCH (08:51)
[2020-05-24] MEDS: METOPROLOL TARTRATE 50 MG TABLET PO SCH ×2 (08:51→21:03)
[2020-05-24] MEDS: cefTRIAXone 1,000 MG in SYRINGE 1 EACH IV SCH (16:25)
[2020-05-24 17:36] LABS: Apearance,Urine Slightly Hazy (Clear); Bacteria,Urine Occasional /HPF (Few); Bilirubin,Urine Negative (Negative); Blood, Urine Moderate mg/dL (Negative); Glucose,Urine (UA) Negative (Negative); Ketones,Urine Negative (Negative); Mucus,Urine Occasional /LPF (Occasional); Nitrite,Urine Negative (Negative); Protein,Urine Negative; RBC,Urine 10 /HPF (0-4); Urine Color Yellow (Yellow); Urine Urobilinogen < 2.0 EU/DL (0.2-1.0); WBC,Urine 33 /HPF (0-6)
[2020-05-25] MEDS: ALBUTEROL/IPRATROPIUM 3 ML NEB RESP TX SCH ×4 (02:06→18:30)
[2020-05-25 08:00] LABS: Basophils % 0.4 % (0.0-0.8); Eosinophils # 0.1 10*3/uL (0.0-0.87); Hematocrit 25.9 VOL% (42.0-52.0); Hemoglobin 7.8 GM/DL (14.0-18.0); Immature Granulocytes % 0.8 %; Immature Granulocytes Absolute 0.04 #; Lymphocytes # 1.2 10*3/uL (1.4-4.0); Lymphocytes % 22.9 % (21.2-54.2); Mean Corpuscular HGB Conc 30.1 GM/DL (32-36); Mean Corpuscular Volume 98.9 FL (87-102); Mean Platelet Volume 9.7 FL (9.6-12.0); Monocytes % 7.4 % (1.7-12.7); Neutrophils % 67.5 % (38.7-73.9); Platelet Count 214 T/CUMM (130-400); Red Blood Count 2.62 MC/CUMM (3.8-5.5); Red Cell Distribution Width 18.7 % (9.3-17.3); White Blood Count 5.2 T/CUMM (4-12)
[2020-05-25 08:13] LABS: Calcium 7.9 MG/DL (8.5-10.1); Osmolality,Calculated 283.3 MOS/KG (273-304)
[2020-05-25] MEDS: INSULIN REGULAR 100 UNIT/ML SUBCUT SCH ×4 (08:55→22:34)
[2020-05-25] MEDS: PANTOPRAZOLE 40 MG VIAL IV SCH (09:18)
[2020-05-25] MEDS: FUROSEMIDE 40 MG/4 ML VIAL IV SCH ×2 (09:19→17:23)
[2020-05-25] MEDS: LINEZOLID INJ 600 MG in PREMIX 1 EACH IV SCH (09:22)
[2020-05-25] MEDS: METOPROLOL TARTRATE 50 MG TABLET PO SCH ×2 (09:23→20:40)
[2020-05-25] MEDS: POTASSIUM CHLORIDE 20 MEQ TABLET PO PRN ×4 (09:23→17:22)
[2020-05-25] MEDS: APIXABAN 5 MG TABLET PO SCH ×2 (09:23→20:40)
[2020-05-25] MEDS: DUTASTERIDE 0.5 MG CAPSULE PO SCH (09:23)
[2020-05-25] MEDS: FERROUS SULFATE 325 MG TABLET PO SCH (09:24)
[2020-05-25] MEDS: GRANISETRON 1 MG/1 ML VIAL IV SCH (09:24)
[2020-05-25] MEDS: ATORVASTATIN 10 MG TABLET PO SCH (09:24)
[2020-05-25] MEDS: DILTIAZEM CD 240 MG CAPSULE PO SCH (09:27)
[2020-05-26] MEDS: ALBUTEROL/IPRATROPIUM 3 ML NEB RESP TX SCH ×4 (00:10→21:48)
[2020-05-26] MEDS: POTASSIUM CHLORIDE 20 MEQ TABLET PO PRN ×6 (00:20→15:36)
[2020-05-26] MEDS: INSULIN REGULAR 100 UNIT/ML SUBCUT SCH ×4 (08:50→22:19)
[2020-05-26] MEDS: DILTIAZEM CD 240 MG CAPSULE PO SCH (09:21)
[2020-05-26] MEDS: FUROSEMIDE 80 MG TABLET PO SCH (09:23)
[2020-05-26] MEDS: ATORVASTATIN 10 MG TABLET PO SCH (09:23)
[2020-05-26] MEDS: FERROUS SULFATE 325 MG TABLET PO SCH (09:24)
[2020-05-26] MEDS: APIXABAN 5 MG TABLET PO SCH ×2 (09:24→21:23)
[2020-05-26] MEDS: METOPROLOL TARTRATE 50 MG TABLET PO SCH ×2 (09:24→21:22)
[2020-05-26] MEDS: DUTASTERIDE 0.5 MG CAPSULE PO SCH (09:24)
[2020-05-26] MEDS: PANTOPRAZOLE 40 MG VIAL IV SCH (09:24)
[2020-05-26] MEDS: GRANISETRON 1 MG/1 ML VIAL IV SCH (09:25)
[2020-05-27] MEDS: ALBUTEROL/IPRATROPIUM 3 ML NEB RESP TX SCH ×4 (01:15→19:27)
[2020-05-27] MEDS: INSULIN REGULAR 100 UNIT/ML SUBCUT SCH ×4 (09:36→20:45)
[2020-05-27] MEDS: ATORVASTATIN 10 MG TABLET PO SCH (09:36)
[2020-05-27] MEDS: DILTIAZEM CD 240 MG CAPSULE PO SCH (09:36)
[2020-05-27] MEDS: FUROSEMIDE 80 MG TABLET PO SCH (09:36)
[2020-05-27] MEDS: GRANISETRON 1 MG/1 ML VIAL IV SCH (09:38)
[2020-05-27] MEDS: FERROUS SULFATE 325 MG TABLET PO SCH (09:38)
[2020-05-27] MEDS: METOPROLOL TARTRATE 50 MG TABLET PO SCH ×2 (09:38→20:55)
[2020-05-27] MEDS: APIXABAN 5 MG TABLET PO SCH ×2 (09:38→20:54)
[2020-05-27] MEDS: DUTASTERIDE 0.5 MG CAPSULE PO SCH (09:38)
[2020-05-27] MEDS: PANTOPRAZOLE 40 MG VIAL IV SCH (09:39)
[2020-05-27 16:34] LABS: Basophils % 0.6 % (0.0-0.8); Eosinophils # 0.1 10*3/uL (0.0-0.87); Hematocrit 28.1 VOL% (42.0-52.0); Hemoglobin 8.1 GM/DL (14.0-18.0); Immature Granulocytes % 0.4 %; Immature Granulocytes Absolute 0.03 #; Lymphocytes # 1.4 10*3/uL (1.4-4.0); Lymphocytes % 19.3 % (21.2-54.2); Mean Corpuscular HGB Conc 28.8 GM/DL (32-36); Mean Corpuscular Volume 101.4 FL (87-102); Mean Platelet Volume 9.1 FL (9.6-12.0); Monocytes % 8.4 % (1.7-12.7); NRBC # 0.02 10*3/uL; Neutrophils % 70.3 % (38.7-73.9); Platelet Count 206 T/CUMM (130-400); Red Blood Count 2.77 MC/CUMM (3.8-5.5); Red Cell Distribution Width 18.6 % (9.3-17.3); White Blood Count 7.1 T/CUMM (4-12)
[2020-05-27 19:17] LABS: Calcium 8.3 MG/DL (8.5-10.1); Osmolality,Calculated 282.5 MOS/KG (273-304)
[2020-05-27] MEDS: POTASSIUM CHLORIDE RIDER 10 MEQ in PREMIX 1 EACH IV PRN ×4 (19:56→23:11)
[2020-05-28] MEDS: ALBUTEROL/IPRATROPIUM 3 ML NEB RESP TX SCH ×4 (01:05→20:37)
[2020-05-28 05:59] LABS: Basophils % 0.6 % (0.0-0.8); Eosinophils # 0.1 10*3/uL (0.0-0.87); Eosinophils % 1.1 % (0.00-10.9); Hematocrit 22.9 VOL% (42.0-52.0); Immature Granulocytes % 0.6 %; Immature Granulocytes Absolute 0.03 #; Lymphocytes # 1.2 10*3/uL (1.4-4.0); Lymphocytes % 22.6 % (21.2-54.2); Mean Corpuscular HGB Conc 30.6 GM/DL (32-36); Mean Corpuscular Volume 97.4 FL (87-102); Mean Platelet Volume 9.2 FL (9.6-12.0); Monocytes % 9.1 % (1.7-12.7); Platelet Count 178 T/CUMM (130-400); Red Blood Count 2.35 MC/CUMM (3.8-5.5); Red Cell Distribution Width 18.3 % (9.3-17.3); White Blood Count 5.4 T/CUMM (4-12)
[2020-05-28 06:37] LABS: Calcium 8.3 MG/DL (8.5-10.1); Osmolality,Calculated 286.3 MOS/KG (273-304)
[2020-05-28] MEDS ORDERED: SODIUM CHLORIDE 0.9% 1,000 ML IV PRN (07:07)
[2020-05-28 07:43] LABS: Anisocytosis 1+; Hypochromasia 2+; Ovalocytes Few; Poikilocytosis 1+; Polychromasia Slight
[2020-05-28 07:44] LABS: Platelet Estimate Adequate; Schistocytes Slight; Stomatocytes Few; Target Cells Few
[2020-05-28] MEDS: INSULIN REGULAR 100 UNIT/ML SUBCUT SCH ×4 (08:47→21:37)
[2020-05-28] MEDS: SODIUM CHLOR 0.9% KCL 40 MEQ 40 MEQ/1,000 ML BAG IV SCH (09:18)
[2020-05-28] MEDS: PANTOPRAZOLE 40 MG VIAL IV SCH (09:36)
[2020-05-28] MEDS: GRANISETRON 1 MG/1 ML VIAL IV SCH (09:37)
[2020-05-28] MEDS: METOPROLOL TARTRATE 50 MG TABLET PO SCH ×2 (09:40→22:32)
[2020-05-28] MEDS: DILTIAZEM CD 240 MG CAPSULE PO SCH (09:40)
[2020-05-28] MEDS: DUTASTERIDE 0.5 MG CAPSULE PO SCH (09:40)
[2020-05-28] MEDS: ATORVASTATIN 10 MG TABLET PO SCH (09:40)
[2020-05-28] MEDS: FUROSEMIDE 80 MG TABLET PO SCH (09:41)
[2020-05-28] MEDS: APIXABAN 5 MG TABLET PO SCH ×2 (09:41→22:32)
[2020-05-28] MEDS: FERROUS SULFATE 325 MG TABLET PO SCH (09:41)
[2020-05-28] MEDS ORDERED: LACTATED RINGERS 1,000 ML IV SCH (10:30)
[2020-05-28] MEDS: POTASSIUM CHLORIDE RIDER 10 MEQ in PREMIX 1 EACH IV SCH ×3 (11:36→15:55)
[2020-05-28 14:15] LABS: Osmolality,Calculated 282.5 MOS/KG (273-304)
[2020-05-28] MEDS ORDERED: GLYCOPYRROLATE 0.4 MG/2 ML VIAL ONE (19:47)
[2020-05-28] MEDS ORDERED: LIDOCAINE 2% 5 ML VIAL ONE (19:47)
[2020-05-28] MEDS ORDERED: ETOMIDATE 40 MG/20 ML VIAL IV ONE (19:47)
[2020-05-28] MEDS ORDERED: propofoL 200 MG/20 ML VIAL IV ONE (19:47)
[2020-05-28] MEDS ORDERED: SUCCINYLCHOLINE 200 MG/10 ML VIAL ONE (19:48)
[2020-05-28 20:20] LABS: ABG Base Excess 2.4 MMOL/L (-2.5-2.5); ABG HCO3 26.6 MMOL/L (20-26); ABG PH 7.376 (7.35-7.45); ABG TCO2 25.9 MMOL/L (23-27); Allen Test Positive; Pt O2 Delivery Device Ventilator
[2020-05-28] MEDS ORDERED: fentaNYL 100 MCG/2 ML VIAL IV PRN (22:57)
[2020-05-29] MEDS: ALBUTEROL/IPRATROPIUM 3 ML NEB RESP TX SCH ×4 (01:37→19:04)
[2020-05-29] MEDS ORDERED: NOREPINEPHRINE 8 MG in SODIUM CHLORIDE 0.9% 242 ML IV PRN (02:28)
[2020-05-29 02:48] LABS: Basophils % 0.6 % (0.0-0.8); Eosinophils % 0.6 % (0.00-10.9); Hemoglobin 9.6 GM/DL (14.0-18.0); Immature Granulocytes % 0.3 %; Immature Granulocytes Absolute 0.01 #; Lymphocytes # 0.6 10*3/uL (1.4-4.0); Lymphocytes % 19.8 % (21.2-54.2); Mean Corpuscular Volume 95.1 FL (87-102); Mean Platelet Volume 8.6 FL (9.6-12.0); Monocytes % 9.3 % (1.7-12.7); NRBC # 0.04 10*3/uL; Neutrophils % 69.4 % (38.7-73.9); Platelet Count 144 T/CUMM (130-400); Red Blood Count 3.26 MC/CUMM (3.8-5.5); White Blood Count 3.2 T/CUMM (4-12)
[2020-05-29 03:13] LABS: Calcium 7.6 MG/DL (8.5-10.1); Osmolality,Calculated 279.7 MOS/KG (273-304)
[2020-05-29] MEDS: MAGNESIUM SULF RIDER 2 GM in PREMIX 1 EACH IV PRN (03:32)
[2020-05-29] MEDS: POTASSIUM CHLORIDE RIDER 10 MEQ in PREMIX 1 EACH IV PRN ×4 (03:39→18:41)
[2020-05-29 03:42] LABS: ABG Base Excess 2.7 MMOL/L (-2.5-2.5); ABG HCO3 26.8 MMOL/L (20-26); ABG Oxygen Saturation 93.7 % (95-100); ABG PCO2 36.9 MM HG (35-48); ABG PH 7.463 (7.35-7.45); ABG PO2 62.9 MM HG (80-95); Allen Test Positive; Pt O2 Delivery Device Ventilator
[2020-05-29 04:18] LABS: Band Neutrophils 7 % (0-10); Lymphocytes 17 % (20-55); Segmented Neutrophils 71 % (50-85); Total Cells Counted 100
[2020-05-29 04:19] LABS: Anisocytosis 1+; Ovalocytes 1+; Platelet Estimate Adequate
[2020-05-29] MEDS: PIPERACILLIN/TAZOBACTAM 3,375 MG in SODIUM CHLORIDE 0.9% 100 ML IV SCH ×3 (05:49→21:25)
[2020-05-29] MEDS: SODIUM CHLOR 0.9% KCL 40 MEQ 40 MEQ/1,000 ML BAG IV SCH ×3 (06:30→20:25)
[2020-05-29] MEDS ORDERED: LACTATED RINGERS 1,000 ML IV ONE (07:10)
[2020-05-29] MEDS: INSULIN REGULAR 100 UNIT/ML SUBCUT SCH ×4 (08:26→21:19)
[2020-05-29] MEDS ORDERED: DIGOXIN 0.5 MG/2 ML AMP IV ONE (09:23)
[2020-05-29] MEDS: DUTASTERIDE 0.5 MG CAPSULE PO SCH (09:41)
[2020-05-29] MEDS: DILTIAZEM CD 240 MG CAPSULE PO SCH (09:41)
[2020-05-29] MEDS: APIXABAN 5 MG TABLET PO SCH (09:42)
[2020-05-29] MEDS: ATORVASTATIN 10 MG TABLET PO SCH (09:42)
[2020-05-29] MEDS: FUROSEMIDE 80 MG TABLET PO SCH (09:42)
[2020-05-29] MEDS: FERROUS SULFATE 325 MG TABLET PO SCH (09:42)
[2020-05-29] MEDS: METOPROLOL TARTRATE 50 MG TABLET PO SCH (09:43)
[2020-05-29] MEDS: PANTOPRAZOLE 40 MG VIAL IV SCH (10:28)
[2020-05-29] MEDS: ENOXAPARIN 100 MG/ML SYRINGE SUBCUT SCH ×2 (10:34→21:24)
[2020-05-29] MEDS: GRANISETRON 1 MG/1 ML VIAL IV SCH (10:35)
[2020-05-29] MEDS: VANCOMYCIN INJ 2,000 MG in SODIUM CHLORIDE 0.9% 500 ML IV SCH (10:42)
[2020-05-29] MEDS ORDERED: PHENYLEPHRINE DRIP 0 MG/0 ML PREMIX IV ONE (14:16)
[2020-05-29 14:35] LABS: FACV Specimen Whole Blood
[2020-05-29 15:41] LABS: PT PCR Specimen Whole Blood; Prothrombin (F2) G20210A Varia Negative
[2020-05-29] MEDS ORDERED: POTASSIUM CHLORIDE RIDER 10 MEQ in PREMIX 1 EACH IV PRN (15:45)
[2020-05-29] MEDS: POTASSIUM CHLORIDE RIDER 20 MEQ in PREMIX 1 EACH IV PRN (16:40)
[2020-05-29] MEDS ORDERED: ALBUMIN 5% 25 GM in PREMIX 1 EACH IV ONE (19:12)
[2020-05-30 04:25] LABS: Basophils % 0.3 % (0.0-0.8); Eosinophils # 0.1 10*3/uL (0.0-0.87); Eosinophils % 0.7 % (0.00-10.9); Hematocrit 24.6 VOL% (42.0-52.0); Hemoglobin 7.7 GM/DL (14.0-18.0); Immature Granulocytes % 0.6 %; Immature Granulocytes Absolute 0.07 #; Lymphocytes # 1.1 10*3/uL (1.4-4.0); Lymphocytes % 10.1 % (21.2-54.2); Mean Corpuscular HGB Conc 31.3 GM/DL (32-36); Mean Corpuscular Volume 94.3 FL (87-102); Mean Platelet Volume 9.1 FL (9.6-12.0); Monocytes % 7.2 % (1.7-12.7); Neutrophils % 81.1 % (38.7-73.9); Platelet Count 140 T/CUMM (130-400); Red Blood Count 2.61 MC/CUMM (3.8-5.5); Red Cell Distribution Width 17.8 % (9.3-17.3); White Blood Count 11.2 T/CUMM (4-12)
[2020-05-30 04:25] LABS: ABG Base Excess 0.6 MMOL/L (-2.5-2.5); ABG HCO3 24.2 MMOL/L (20-26); ABG PCO2 35.1 MM HG (35-48); ABG PH 7.457 (7.35-7.45); ABG PO2 224.6 MM HG (80-95); ABG TCO2 25.3 MMOL/L (23-27); Allen Test Positive; Pt O2 Delivery Device Ventilator
[2020-05-30 05:00] LABS: Albumin 2.1 G/DL (3.4-5.0); Bilirubin,Total 0.8 MG/DL (0.2-1.0); Calcium 7.6 MG/DL (8.5-10.1); Osmolality,Calculated 289.8 MOS/KG (273-304); Total Protein 5.4 G/DL (6.4-8.3)
[2020-05-30] MEDS: PIPERACILLIN/TAZOBACTAM 3,375 MG in SODIUM CHLORIDE 0.9% 100 ML IV SCH ×3 (05:17→21:09)
[2020-05-30] MEDS: POTASSIUM CHLORIDE RIDER 20 MEQ in PREMIX 1 EACH IV PRN ×2 (05:21→07:27)
[2020-05-30 05:46] LABS: Band Neutrophils 8 % (0-10); Hypochromasia 2+; Lymphocytes 7 % (20-55); Platelet Estimate Decreased; Segmented Neutrophils 80 % (50-85); Total Cells Counted 100
[2020-05-30] MEDS: ALBUTEROL/IPRATROPIUM 3 ML NEB RESP TX SCH ×4 (07:50→19:39)
[2020-05-30] MEDS: INSULIN REGULAR 100 UNIT/ML SUBCUT SCH ×4 (08:37→21:08)
[2020-05-30] MEDS: PANTOPRAZOLE 40 MG VIAL IV SCH (09:00)
[2020-05-30] MEDS: ENOXAPARIN 100 MG/ML SYRINGE SUBCUT SCH ×2 (09:07→21:10)
[2020-05-30] MEDS: VANCOMYCIN INJ 2,000 MG in SODIUM CHLORIDE 0.9% 500 ML IV SCH (09:07)
[2020-05-30] MEDS: GRANISETRON 1 MG/1 ML VIAL IV SCH (09:07)
[2020-05-30] MEDS: NITROFURANTOIN MACROCRYSTALS 100 MG CAPSULE PO SCH (21:09)
[2020-05-31] MEDS: ALBUTEROL/IPRATROPIUM 3 ML NEB RESP TX SCH ×4 (00:53→19:58)
[2020-05-31] MEDS: PIPERACILLIN/TAZOBACTAM 3,375 MG in SODIUM CHLORIDE 0.9% 100 ML IV SCH ×3 (04:12→21:26)
[2020-05-31 04:23] LABS: Basophils % 0.2 % (0.0-0.8); Eosinophils # 0.2 10*3/uL (0.0-0.87); Eosinophils % 1.4 % (0.00-10.9); Hematocrit 22.9 VOL% (42.0-52.0); Immature Granulocytes Absolute 0.26 #; Lymphocytes # 1.2 10*3/uL (1.4-4.0); Lymphocytes % 8.9 % (21.2-54.2); Mean Corpuscular HGB Conc 30.6 GM/DL (32-36); Mean Corpuscular Volume 96.2 FL (87-102); Mean Platelet Volume 9.2 FL (9.6-12.0); Monocytes % 5.7 % (1.7-12.7); Neutrophils % 81.8 % (38.7-73.9); Platelet Count 126 T/CUMM (130-400); Red Blood Count 2.38 MC/CUMM (3.8-5.5); Red Cell Distribution Width 18.2 % (9.3-17.3); White Blood Count 13.2 T/CUMM (4-12)
[2020-05-31 04:36] LABS: Calcium 7.6 MG/DL (8.5-10.1); Osmolality,Calculated 291.7 MOS/KG (273-304)
[2020-05-31 05:00] LABS: ABG Oxygen Saturation 98.6 % (95-100); ABG PH 7.442 (7.35-7.45); ABG PO2 152.7 MM HG (80-95); ABG TCO2 25.1 MMOL/L (23-27); Allen Test Positive; Pt O2 Delivery Device Ventilator
[2020-05-31 05:35] LABS: Anisocytosis 1+; Band Neutrophils 2 % (0-10); Eosinophils 3 % (0-10); Lymphocytes 8 % (20-55); Segmented Neutrophils 84 % (50-85); Total Cells Counted 100
[2020-05-31 05:36] LABS: Ovalocytes 1+; Platelet Estimate Adequate
[2020-05-31] MEDS: POTASSIUM CHLORIDE RIDER 10 MEQ in PREMIX 1 EACH IV PRN (05:43)
[2020-05-31] MEDS: POTASSIUM CHLORIDE RIDER 20 MEQ in PREMIX 1 EACH IV PRN (07:07)
[2020-05-31] MEDS: INSULIN REGULAR 100 UNIT/ML SUBCUT SCH ×4 (07:36→21:25)
[2020-05-31] MEDS ORDERED: FUROSEMIDE 40 MG/4 ML VIAL IV ONE (08:22)
[2020-05-31] MEDS ORDERED: SODIUM CHLORIDE 0.9% 1,000 ML IV PRN (08:25)
[2020-05-31] MEDS: PANTOPRAZOLE 40 MG VIAL IV SCH (09:09)
[2020-05-31] MEDS: GRANISETRON 1 MG/1 ML VIAL IV SCH (09:10)
[2020-05-31] MEDS: ENOXAPARIN 100 MG/ML SYRINGE SUBCUT SCH ×2 (09:11→21:26)
[2020-05-31] MEDS: VANCOMYCIN INJ 2,000 MG in SODIUM CHLORIDE 0.9% 500 ML IV SCH (09:11)
[2020-05-31] MEDS ORDERED: POTASSIUM CHLORIDE 20 MEQ/15 ML UDCUP PER TUBE ONE (09:59)
[2020-05-31] MEDS: METOCLOPRAMIDE 10 MG/2 ML VIAL IV SCH ×2 (12:12→17:41)
[2020-05-31] MEDS: POTASSIUM CHLORIDE 20 MEQ/15 ML UDCUP PER TUBE PRN ×3 (13:45→17:42)
[2020-05-31] MEDS: NITROFURANTOIN MACROCRYSTALS 100 MG CAPSULE PO SCH (21:26)
[2020-06-01] MEDS: METOCLOPRAMIDE 10 MG/2 ML VIAL IV SCH ×4 (00:28→17:29)
[2020-06-01] MEDS: ALBUTEROL/IPRATROPIUM 3 ML NEB RESP TX SCH ×4 (01:01→19:38)
[2020-06-01] MEDS: POTASSIUM CHLORIDE 20 MEQ/15 ML UDCUP PER TUBE PRN ×7 (01:32→18:27)
[2020-06-01 03:54] LABS: Basophils % 0.2 % (0.0-0.8); Eosinophils % 0.2 % (0.00-10.9); Hematocrit 26.5 VOL% (42.0-52.0); Hemoglobin 8.4 GM/DL (14.0-18.0); Immature Granulocytes % 1.5 %; Immature Granulocytes Absolute 0.19 #; Lymphocytes % 7.6 % (21.2-54.2); Mean Corpuscular HGB Conc 31.7 GM/DL (32-36); Mean Platelet Volume 10.1 FL (9.6-12.0); Monocytes % 5.4 % (1.7-12.7); NRBC # 0.02 10*3/uL; Neutrophils % 85.1 % (38.7-73.9); Platelet Count 137 T/CUMM (130-400); Red Blood Count 2.82 MC/CUMM (3.8-5.5); Red Cell Distribution Width 17.1 % (9.3-17.3); White Blood Count 12.9 T/CUMM (4-12)
[2020-06-01 04:04] LABS: Calcium 7.5 MG/DL (8.5-10.1); Osmolality,Calculated 292.7 MOS/KG (273-304)
[2020-06-01 04:47] LABS: Prealbumin 5.6 MG/DL (20-40)
[2020-06-01 04:49] LABS: ABG Base Excess 0.4 MMOL/L (-2.5-2.5); ABG HCO3 24.8 MMOL/L (20-26); ABG Oxygen Saturation 99.2 % (95-100); ABG PCO2 36.6 MM HG (35-48); ABG PH 7.433 (7.35-7.45); ABG TCO2 22.7 MMOL/L (23-27); Allen Test Positive; Pt O2 Delivery Device Ventilator
[2020-06-01 04:49] LABS: Eosinophils 1 % (0-10); Hypochromasia 1+; Lymphocytes 9 % (20-55); Platelet Estimate Normal; Segmented Neutrophils 85 % (50-85); Total Cells Counted 100
[2020-06-01] MEDS: PIPERACILLIN/TAZOBACTAM 3,375 MG in SODIUM CHLORIDE 0.9% 100 ML IV SCH ×3 (04:55→21:43)
[2020-06-01] MEDS: MAGNESIUM SULF RIDER 2 GM in PREMIX 1 EACH IV PRN (04:55)
[2020-06-01] MEDS: INSULIN REGULAR 100 UNIT/ML SUBCUT SCH ×3 (07:56→17:27)
[2020-06-01] MEDS ORDERED: POTASSIUM CHLORIDE 20 MEQ/15 ML UDCUP PER TUBE SCH ×2 (08:30→10:30)
[2020-06-01] MEDS ORDERED: POTASSIUM PHOSPHATE 30 MMOL in SODIUM CHLORIDE 0.9% 250 ML IV ONE (10:09)
[2020-06-01] MEDS: GRANISETRON 1 MG/1 ML VIAL IV SCH (10:20)
[2020-06-01] MEDS: ENOXAPARIN 100 MG/ML SYRINGE SUBCUT SCH ×2 (10:20→21:43)
[2020-06-01] MEDS: VANCOMYCIN INJ 2,000 MG in SODIUM CHLORIDE 0.9% 500 ML IV SCH (10:23)
[2020-06-01] MEDS: PANTOPRAZOLE 40 MG VIAL IV SCH (10:23)
[2020-06-01] MEDS ORDERED: FUROSEMIDE 40 MG/4 ML VIAL IV ONE (14:26)
[2020-06-01] MEDS: NITROFURANTOIN MACROCRYSTALS 100 MG CAPSULE PO SCH (21:42)
[2020-06-02] MEDS: INSULIN REGULAR 100 UNIT/ML SUBCUT SCH ×5 (00:41→20:39)
[2020-06-02] MEDS: METOCLOPRAMIDE 10 MG/2 ML VIAL IV SCH ×4 (00:43→17:05)
[2020-06-02] MEDS: POTASSIUM CHLORIDE 20 MEQ/15 ML UDCUP PER TUBE PRN ×4 (01:39→07:37)
[2020-06-02] MEDS: ALBUTEROL/IPRATROPIUM 3 ML NEB RESP TX SCH ×4 (01:50→20:10)
[2020-06-02 03:47] LABS: ABG Base Excess -1.5 MMOL/L (-2.5-2.5); ABG HCO3 22.8 MMOL/L (20-26); ABG Oxygen Saturation 98.2 % (95-100); ABG PCO2 36.6 MM HG (35-48); ABG PH 7.413 (7.35-7.45); ABG PO2 123.9 MM HG (80-95); Allen Test Positive; Pt O2 Delivery Device Ventilator
[2020-06-02] MEDS: PIPERACILLIN/TAZOBACTAM 3,375 MG in SODIUM CHLORIDE 0.9% 100 ML IV SCH ×3 (05:04→21:15)
[2020-06-02 05:23] LABS: Calcium 7.6 MG/DL (8.5-10.1); Osmolality,Calculated 292.7 MOS/KG (273-304)
[2020-06-02] MEDS: ENOXAPARIN 100 MG/ML SYRINGE SUBCUT SCH ×2 (09:53→21:15)
[2020-06-02] MEDS: POTASSIUM CHLORIDE 20 MEQ/15 ML UDCUP PER TUBE SCH ×2 (09:53→13:44)
[2020-06-02] MEDS: GRANISETRON 1 MG/1 ML VIAL IV SCH (09:53)
[2020-06-02] MEDS: PANTOPRAZOLE 40 MG VIAL IV SCH (09:55)
[2020-06-02] MEDS: POTASSIUM CHLORIDE 20 MEQ PACK PO SCH ×3 (13:38→21:15)
[2020-06-02] MEDS: NITROFURANTOIN MACROCRYSTALS 100 MG CAPSULE PO SCH (21:15)
[2020-06-03] MEDS: ALBUTEROL/IPRATROPIUM 3 ML NEB RESP TX SCH ×4 (00:24→19:23)
[2020-06-03] MEDS: METOCLOPRAMIDE 10 MG/2 ML VIAL IV SCH ×5 (02:39→23:02)
[2020-06-03] MEDS: POTASSIUM CHLORIDE 20 MEQ PACK PO SCH (03:32)
[2020-06-03 03:49] LABS: ABG Base Excess -0.6 MMOL/L (-2.5-2.5); ABG HCO3 23.9 MMOL/L (20-26); ABG Oxygen Saturation 96.8 % (95-100); ABG PCO2 39.2 MM HG (35-48); ABG PH 7.396 (7.35-7.45); ABG PO2 82.3 MM HG (80-95); ABG TCO2 21.5 MMOL/L (23-27)
[2020-06-03] MEDS ORDERED: POTASSIUM CHLORIDE 20 MEQ PACK PO SCH (04:00)
[2020-06-03] MEDS: PIPERACILLIN/TAZOBACTAM 3,375 MG in SODIUM CHLORIDE 0.9% 100 ML IV SCH ×3 (05:19→21:21)
[2020-06-03 05:33] LABS: Basophils # 0.1 10*3/uL (0.0-0.2); Basophils % 0.4 % (0.0-0.8); Eosinophils # 0.1 10*3/uL (0.0-0.87); Eosinophils % 0.9 % (0.00-10.9); Hematocrit 27.4 VOL% (42.0-52.0); Hemoglobin 8.6 GM/DL (14.0-18.0); Immature Granulocytes % 6.1 %; Immature Granulocytes Absolute 0.86 #; Lymphocytes # 1.2 10*3/uL (1.4-4.0); Lymphocytes % 8.2 % (21.2-54.2); Mean Corpuscular HGB Conc 31.4 GM/DL (32-36); Mean Corpuscular Volume 95.5 FL (87-102); Mean Platelet Volume 9.8 FL (9.6-12.0); Monocytes % 9.4 % (1.7-12.7); Platelet Count 211 T/CUMM (130-400); Red Blood Count 2.87 MC/CUMM (3.8-5.5); Red Cell Distribution Width 17.3 % (9.3-17.3)
[2020-06-03 05:56] LABS: Band Neutrophils 1 % (0-10); Hypochromasia 1+; Lymphocytes 7 % (20-55); Ovalocytes Slight; Platelet Estimate Adequate; Segmented Neutrophils 86 % (50-85); Total Cells Counted 100
[2020-06-03 05:58] LABS: Calcium 8.2 MG/DL (8.5-10.1); Osmolality,Calculated 295.4 MOS/KG (273-304)
[2020-06-03] MEDS: INSULIN REGULAR 100 UNIT/ML SUBCUT SCH ×4 (07:44→20:10)
[2020-06-03] MEDS: PANTOPRAZOLE 40 MG VIAL IV SCH (08:35)
[2020-06-03] MEDS: GRANISETRON 1 MG/1 ML VIAL IV SCH (08:35)
[2020-06-03] MEDS: ENOXAPARIN 100 MG/ML SYRINGE SUBCUT SCH ×2 (10:50→21:20)
[2020-06-03] MEDS: POTASSIUM CHLORIDE 20 MEQ TABLET PO SCH ×4 (11:40→23:03)
[2020-06-03] MEDS: NITROFURANTOIN MACROCRYSTALS 100 MG CAPSULE PO SCH (21:20)
[2020-06-04] MEDS: PIPERACILLIN/TAZOBACTAM 3,375 MG in SODIUM CHLORIDE 0.9% 100 ML IV SCH ×3 (05:11→20:41)
[2020-06-04] MEDS: METOCLOPRAMIDE 10 MG/2 ML VIAL IV SCH ×4 (05:11→23:32)
[2020-06-04 05:55] LABS: Calcium 8.3 MG/DL (8.5-10.1); Osmolality,Calculated 294.4 MOS/KG (273-304)
[2020-06-04 05:59] LABS: Calcium 8.2 MG/DL (8.5-10.1); Osmolality,Calculated 292.6 MOS/KG (273-304)
[2020-06-04] MEDS: ALBUTEROL/IPRATROPIUM 3 ML NEB RESP TX SCH ×4 (07:04→19:22)
[2020-06-04] MEDS: INSULIN REGULAR 100 UNIT/ML SUBCUT SCH ×4 (09:10→20:43)
[2020-06-04] MEDS: ENOXAPARIN 100 MG/ML SYRINGE SUBCUT SCH ×3 (10:01→21:57)
[2020-06-04] MEDS: PANTOPRAZOLE 40 MG VIAL IV SCH (10:01)
[2020-06-04] MEDS: GRANISETRON 1 MG/1 ML VIAL IV SCH (10:02)
[2020-06-04 15:15] LABS: Thrombin Time (Bovine), P > 300.0 sec
[2020-06-04] MEDS: NITROFURANTOIN MACROCRYSTALS 100 MG CAPSULE PO SCH (20:41)
[2020-06-05] MEDS: ALBUTEROL/IPRATROPIUM 3 ML NEB RESP TX SCH ×4 (00:40→19:50)
[2020-06-05] MEDS: PIPERACILLIN/TAZOBACTAM 3,375 MG in SODIUM CHLORIDE 0.9% 100 ML IV SCH ×2 (04:31→13:49)
[2020-06-05] MEDS: METOCLOPRAMIDE 10 MG/2 ML VIAL IV SCH ×3 (05:08→17:15)
[2020-06-05 07:25] LABS: Alanine Aminotransferase < 9 U/L (16-61); Albumin 1.6 G/DL (3.4-5.0); Alkaline Phosphatase 85 U/L (45-117); Aspartate Amino Transferase 13 U/L (0-37); Bilirubin,Indirect 0.2 MG/DL (0.0-1.0); Total Protein 5.2 G/DL (6.4-8.3)
[2020-06-05 07:33] LABS: Calcium 8.4 MG/DL (8.5-10.1); Osmolality,Calculated 290.6 MOS/KG (273-304)
[2020-06-05] MEDS: GRANISETRON 1 MG/1 ML VIAL IV SCH (10:16)
[2020-06-05] MEDS: INSULIN REGULAR 100 UNIT/ML SUBCUT SCH ×4 (10:16→20:59)
[2020-06-05] MEDS: ENOXAPARIN 100 MG/ML SYRINGE SUBCUT SCH ×2 (10:17→22:21)
[2020-06-05] MEDS: PANTOPRAZOLE 40 MG VIAL IV SCH (10:17)
[2020-06-05] MEDS: POTASSIUM CHLORIDE RIDER 20 MEQ in PREMIX 1 EACH IV PRN (17:16)
[2020-06-05] MEDS: NITROFURANTOIN MACROCRYSTALS 100 MG CAPSULE PO SCH (21:05)
[2020-06-06] MEDS: METOCLOPRAMIDE 10 MG/2 ML VIAL IV SCH ×4 (00:25→17:33)
[2020-06-06] MEDS: ALBUTEROL/IPRATROPIUM 3 ML NEB RESP TX SCH ×4 (02:20→19:52)
[2020-06-06 07:33] LABS: Calcium 8.3 MG/DL (8.5-10.1); Osmolality,Calculated 287.8 MOS/KG (273-304)
[2020-06-06] MEDS: PANTOPRAZOLE 40 MG VIAL IV SCH (08:42)
[2020-06-06] MEDS: GRANISETRON 1 MG/1 ML VIAL IV SCH (08:42)
[2020-06-06] MEDS: INSULIN REGULAR 100 UNIT/ML SUBCUT SCH ×4 (08:43→21:17)
[2020-06-06] MEDS: ENOXAPARIN 100 MG/ML SYRINGE SUBCUT SCH ×3 (08:47→21:18)
[2020-06-06] MEDS: POTASSIUM CHLORIDE RIDER 10 MEQ in PREMIX 1 EACH IV PRN (12:45)
[2020-06-06] MEDS: POTASSIUM CHLORIDE RIDER 10 MEQ in PREMIX 1 EACH IV SCH ×3 (14:37→16:46)
[2020-06-06] MEDS: NITROFURANTOIN MACROCRYSTALS 100 MG CAPSULE PO SCH (21:17)
[2020-06-07] MEDS: METOCLOPRAMIDE 10 MG/2 ML VIAL IV SCH ×4 (00:30→17:31)
[2020-06-07] MEDS: ALBUTEROL/IPRATROPIUM 3 ML NEB RESP TX SCH ×4 (01:40→20:00)
[2020-06-07 06:15] LABS: Basophils % 0.2 % (0.0-0.8); Eosinophils # 0.1 10*3/uL (0.0-0.87); Hematocrit 25.8 VOL% (42.0-52.0); Immature Granulocytes % 1.5 %; Immature Granulocytes Absolute 0.22 #; Lymphocytes # 1.1 10*3/uL (1.4-4.0); Lymphocytes % 7.4 % (21.2-54.2); Mean Corpuscular Volume 94.2 FL (87-102); Mean Platelet Volume 9.5 FL (9.6-12.0); Monocytes % 4.7 % (1.7-12.7); Neutrophils % 85.2 % (38.7-73.9); Platelet Count 418 T/CUMM (130-400); Red Blood Count 2.74 MC/CUMM (3.8-5.5); Red Cell Distribution Width 17.4 % (9.3-17.3); White Blood Count 14.5 T/CUMM (4-12)
[2020-06-07 06:57] LABS: Alanine Aminotransferase < 6 U/L (16-61); Albumin 1.5 G/DL (3.4-5.0); Alkaline Phosphatase 85 U/L (45-117); Aspartate Amino Transferase 12 U/L (0-37); Blood Urea Nitrogen 10 MG/DL (7-18); Calcium 8.3 MG/DL (8.5-10.1); Estimated Glom Filtration Rate 73 ML/MIN; Glucose 122 MG/DL (74-106); Osmolality,Calculated 285.8 MOS/KG (273-304); Total Protein 5.8 G/DL (6.4-8.3)
[2020-06-07] MEDS: INSULIN REGULAR 100 UNIT/ML SUBCUT SCH ×4 (10:14→22:16)
[2020-06-07] MEDS: PANTOPRAZOLE 40 MG VIAL IV SCH (10:15)
[2020-06-07] MEDS: GRANISETRON 1 MG/1 ML VIAL IV SCH (10:15)
[2020-06-07] MEDS: POTASSIUM CHLORIDE 20 MEQ/15 ML UDCUP PER TUBE PRN (10:16)
[2020-06-07] MEDS: POTASSIUM CHLORIDE RIDER 10 MEQ in PREMIX 1 EACH IV SCH ×4 (13:41→17:35)
[2020-06-07] MEDS: VANCOMYCIN INJ 1,500 MG in SODIUM CHLORIDE 0.9% 500 ML IV SCH (20:07)
[2020-06-07] MEDS: NITROFURANTOIN MACROCRYSTALS 100 MG CAPSULE PO SCH (22:15)
[2020-06-08] MEDS: ALBUTEROL/IPRATROPIUM 3 ML NEB RESP TX SCH ×4 (00:05→19:32)
[2020-06-08] MEDS: METOCLOPRAMIDE 10 MG/2 ML VIAL IV SCH ×4 (00:16→18:24)
[2020-06-08 06:33] LABS: Basophils # 0.1 10*3/uL (0.0-0.2); Basophils % 0.3 % (0.0-0.8); Eosinophils # 0.2 10*3/uL (0.0-0.87); Eosinophils % 1.5 % (0.00-10.9); Hematocrit 29.2 VOL% (42.0-52.0); Hemoglobin 8.9 GM/DL (14.0-18.0); Immature Granulocytes % 1.4 %; Lymphocytes # 1.4 10*3/uL (1.4-4.0); Lymphocytes % 9.6 % (21.2-54.2); Mean Corpuscular HGB Conc 30.5 GM/DL (32-36); Mean Corpuscular Volume 95.1 FL (87-102); Mean Platelet Volume 9.6 FL (9.6-12.0); Monocytes % 3.6 % (1.7-12.7); Neutrophils % 83.6 % (38.7-73.9); Platelet Count 489 T/CUMM (130-400); Red Blood Count 3.07 MC/CUMM (3.8-5.5); Red Cell Distribution Width 17.2 % (9.3-17.3); White Blood Count 14.7 T/CUMM (4-12)
[2020-06-08 07:01] LABS: Calcium 8.3 MG/DL (8.5-10.1); Osmolality,Calculated 276.4 MOS/KG (273-304)
[2020-06-08] MEDS: INSULIN REGULAR 100 UNIT/ML SUBCUT SCH ×4 (07:56→21:47)
[2020-06-08 08:30] LABS: INR 1.2; PT Patient Result 12.4 SECS (9.8-11.9)
[2020-06-08] MEDS ORDERED: fentaNYL 100 MCG/2 ML VIAL IV ONE (10:16)
[2020-06-08] MEDS ORDERED: MIDAZOLAM 2 MG/2 ML VIAL IV ONE (10:16)
[2020-06-08] MEDS ORDERED: DIAZEPAM 5 MG TABLET PO ONE (10:16)
[2020-06-08] MEDS ORDERED: ceFAZolin 1,000 MG in SYRINGE 1 EACH IV ONE (10:16)
[2020-06-08] MEDS: PANTOPRAZOLE 40 MG VIAL IV SCH (10:29)
[2020-06-08] MEDS ORDERED: fentaNYL 100 MCG/2 ML VIAL ONE (10:31)
[2020-06-08] MEDS ORDERED: MIDAZOLAM 2 MG/2 ML VIAL ONE (10:32)
[2020-06-08] MEDS ORDERED: ONDANSETRON 4 MG/2 ML VIAL ONE (11:17)
[2020-06-08] MEDS: ONDANSETRON 4 MG/2 ML VIAL IV PRN (11:20)
[2020-06-08] MEDS: VANCOMYCIN INJ 1,500 MG in SODIUM CHLORIDE 0.9% 500 ML IV SCH (18:24)
[2020-06-08] MEDS: NITROFURANTOIN MACROCRYSTALS 100 MG CAPSULE PO SCH (21:47)
[2020-06-08] MEDS: ENOXAPARIN 100 MG/ML SYRINGE SUBCUT SCH (21:48)
[2020-06-09] MEDS: ALBUTEROL/IPRATROPIUM 3 ML NEB RESP TX SCH ×4 (00:25→19:28)
[2020-06-09] MEDS: METOCLOPRAMIDE 10 MG/2 ML VIAL IV SCH ×6 (00:35→23:46)
[2020-06-09 06:42] LABS: Basophils # 0.1 10*3/uL (0.0-0.2); Basophils % 0.5 % (0.0-0.8); Eosinophils # 0.2 10*3/uL (0.0-0.87); Hematocrit 27.2 VOL% (42.0-52.0); Hemoglobin 8.3 GM/DL (14.0-18.0); Immature Granulocytes % 1.1 %; Immature Granulocytes Absolute 0.12 #; Lymphocytes # 1.3 10*3/uL (1.4-4.0); Lymphocytes % 11.8 % (21.2-54.2); Mean Corpuscular HGB Conc 30.5 GM/DL (32-36); Mean Corpuscular Volume 94.8 FL (87-102); Mean Platelet Volume 9.7 FL (9.6-12.0); Neutrophils % 78.6 % (38.7-73.9); Platelet Count 474 T/CUMM (130-400); Red Blood Count 2.87 MC/CUMM (3.8-5.5); Red Cell Distribution Width 16.9 % (9.3-17.3); White Blood Count 10.9 T/CUMM (4-12)
[2020-06-09] MEDS: INSULIN REGULAR 100 UNIT/ML SUBCUT SCH ×4 (07:26→21:59)
[2020-06-09] MEDS: PANTOPRAZOLE 40 MG VIAL IV SCH ×2 (08:27→17:31)
[2020-06-09] MEDS: ENOXAPARIN 80 MG/0.8 ML SYRINGE SUBCUT SCH ×2 (09:01→22:00)
[2020-06-09] MEDS: VANCOMYCIN INJ 1,500 MG in SODIUM CHLORIDE 0.9% 500 ML IV SCH (17:52)
[2020-06-09] MEDS: NITROFURANTOIN MACROCRYSTALS 100 MG CAPSULE PO SCH (22:00)
[2020-06-10] MEDS: ALBUTEROL/IPRATROPIUM 3 ML NEB RESP TX SCH ×4 (00:21→19:52)
[2020-06-10] MEDS: METOCLOPRAMIDE 10 MG/2 ML VIAL IV SCH ×4 (06:01→23:38)
[2020-06-10] MEDS: ENOXAPARIN 80 MG/0.8 ML SYRINGE SUBCUT SCH ×2 (08:30→20:46)
[2020-06-10] MEDS: PANTOPRAZOLE 40 MG VIAL IV SCH (08:30)
[2020-06-10] MEDS: INSULIN REGULAR 100 UNIT/ML SUBCUT SCH ×4 (08:30→21:13)
[2020-06-10] MEDS: VANCOMYCIN INJ 1,500 MG in SODIUM CHLORIDE 0.9% 500 ML IV SCH (18:16)
[2020-06-10] MEDS: NITROFURANTOIN MACROCRYSTALS 100 MG CAPSULE PO SCH (20:46)
[2020-06-11] MEDS: ALBUTEROL/IPRATROPIUM 3 ML NEB RESP TX SCH ×4 (00:14→20:12)
[2020-06-11] MEDS: METOCLOPRAMIDE 10 MG/2 ML VIAL IV SCH ×3 (05:55→18:29)
[2020-06-11] MEDS ORDERED: LEVOFLOXACIN INJ 500 MG in PREMIX 1 EACH IV SCH (07:30)
[2020-06-11] MEDS ORDERED: MEROPENEM 500 MG in SODIUM CHLORIDE 0.9% 100 ML IV SCH (07:30)
[2020-06-11] MEDS ORDERED: APIXABAN 5 MG TABLET PO SCH (09:00)
[2020-06-11] MEDS: INSULIN REGULAR 100 UNIT/ML SUBCUT SCH ×4 (09:55→20:38)
[2020-06-11] MEDS: PANTOPRAZOLE 40 MG VIAL IV SCH (09:55)
[2020-06-11] MEDS: APIXABAN 2.5 MG TABLET PO SCH ×2 (09:55→20:39)
[2020-06-11] MEDS: cefTAZidime 1,000 MG in SYRINGE 1 EACH IV SCH ×2 (11:58→21:33)
[2020-06-11] MEDS: VANCOMYCIN INJ 1,500 MG in SODIUM CHLORIDE 0.9% 500 ML IV SCH (20:48)
[2020-06-12] MEDS: METOCLOPRAMIDE 10 MG/2 ML VIAL IV SCH ×5 (00:04→23:05)
[2020-06-12] MEDS: ALBUTEROL/IPRATROPIUM 3 ML NEB RESP TX SCH ×4 (02:07→19:02)
[2020-06-12] MEDS: INSULIN REGULAR 100 UNIT/ML SUBCUT SCH ×4 (07:32→20:07)
[2020-06-12] MEDS: MULTIVITAMIN (CENTRUM) TABLET PO SCH (08:39)
[2020-06-12] MEDS: APIXABAN 2.5 MG TABLET PO SCH ×2 (08:39→20:06)
[2020-06-12] MEDS: PANTOPRAZOLE 40 MG VIAL IV SCH (08:39)
[2020-06-12] MEDS: cefTAZidime 1,000 MG in SYRINGE 1 EACH IV SCH ×2 (10:10→22:58)
[2020-06-12] MEDS: DEXTROSE 50% 25 GM/50 ML VIAL IV PRN ×2 (15:46→16:49)
[2020-06-12] MEDS ORDERED: DEXTROSE 10% 250 ML IV ONE (16:34)
[2020-06-12] MEDS: VANCOMYCIN INJ 1,500 MG in SODIUM CHLORIDE 0.9% 500 ML IV SCH (20:07)
[2020-06-13] MEDS: ALBUTEROL/IPRATROPIUM 3 ML NEB RESP TX SCH ×4 (00:02→19:13)
[2020-06-13] MEDS: METOCLOPRAMIDE 10 MG/2 ML VIAL IV SCH ×4 (06:14→23:20)
[2020-06-13] MEDS: INSULIN REGULAR 100 UNIT/ML SUBCUT SCH ×4 (07:37→21:25)
[2020-06-13] MEDS: PANTOPRAZOLE 40 MG VIAL IV SCH (09:43)
[2020-06-13] MEDS: APIXABAN 2.5 MG TABLET PO SCH ×2 (09:43→21:24)
[2020-06-13] MEDS: MULTIVITAMIN (CENTRUM) TABLET PO SCH (09:44)
[2020-06-13] MEDS: cefTAZidime 1,000 MG in SYRINGE 1 EACH IV SCH ×2 (10:02→21:24)
[2020-06-14] MEDS: ALBUTEROL/IPRATROPIUM 3 ML NEB RESP TX SCH ×4 (01:08→19:12)
[2020-06-14] MEDS: METOCLOPRAMIDE 10 MG/2 ML VIAL IV SCH ×3 (05:47→17:13)
[2020-06-14 06:23] LABS: Calcium 7.9 MG/DL (8.5-10.1); Osmolality,Calculated 285.8 MOS/KG (273-304)
[2020-06-14 07:15] LABS: Basophils # 0.1 10*3/uL (0.0-0.2); Basophils % 0.8 % (0.0-0.8); Eosinophils # 0.4 10*3/uL (0.0-0.87); Eosinophils % 3.3 % (0.00-10.9); Hematocrit 26.5 VOL% (42.0-52.0); Hemoglobin 8.2 GM/DL (14.0-18.0); Immature Granulocytes % 1.3 %; Immature Granulocytes Absolute 0.14 #; Lymphocytes # 1.5 10*3/uL (1.4-4.0); Lymphocytes % 13.3 % (21.2-54.2); Mean Corpuscular HGB Conc 30.9 GM/DL (32-36); Mean Corpuscular Volume 94.3 FL (87-102); Mean Platelet Volume 9.1 FL (9.6-12.0); Monocytes % 7.9 % (1.7-12.7); Neutrophils % 73.4 % (38.7-73.9); Platelet Count 420 T/CUMM (130-400); Red Blood Count 2.81 MC/CUMM (3.8-5.5)
[2020-06-14] MEDS: INSULIN REGULAR 100 UNIT/ML SUBCUT SCH ×4 (07:28→20:19)
[2020-06-14 08:49] LABS: Eosinophils 4 % (0-10); Lymphocytes 8 % (20-55); Polychromasia Slight; Segmented Neutrophils 74 % (50-85); Total Cells Counted 100
[2020-06-14 08:50] LABS: Atypical Lymphocytes Few; Hypochromasia 1+; Microcytosis 1+; Platelet Estimate Normal; Schistocytes Slight
[2020-06-14] MEDS: MULTIVITAMIN (CENTRUM) TABLET PO SCH (08:52)
[2020-06-14] MEDS: APIXABAN 2.5 MG TABLET PO SCH ×2 (08:52→20:17)
[2020-06-14] MEDS: PANTOPRAZOLE 40 MG VIAL IV SCH (08:53)
[2020-06-14] MEDS: cefTAZidime 1,000 MG in SYRINGE 1 EACH IV SCH (09:00)
[2020-06-14] MEDS: VANCOMYCIN INJ 1,500 MG in SODIUM CHLORIDE 0.9% 500 ML IV SCH (20:20)
[2020-06-15] MEDS: METOCLOPRAMIDE 10 MG/2 ML VIAL IV SCH ×3 (00:18→12:12)
[2020-06-15] MEDS: ALBUTEROL/IPRATROPIUM 3 ML NEB RESP TX SCH ×4 (00:42→19:13)
[2020-06-15] MEDS: INSULIN REGULAR 100 UNIT/ML SUBCUT SCH ×4 (07:57→21:19)
[2020-06-15] MEDS: APIXABAN 2.5 MG TABLET PO SCH ×2 (08:30→21:18)
[2020-06-15] MEDS: MULTIVITAMIN (CENTRUM) TABLET PO SCH (08:30)
[2020-06-15] MEDS: PANTOPRAZOLE 40 MG VIAL IV SCH (08:31)
[2020-06-15] MEDS: METOCLOPRAMIDE 5 MG TABLET PO SCH (18:31)
[2020-06-16] MEDS: ALBUTEROL/IPRATROPIUM 3 ML NEB RESP TX SCH ×4 (01:07→19:19)
[2020-06-16] MEDS: METOCLOPRAMIDE 5 MG TABLET PO SCH ×4 (01:30→17:10)
[2020-06-16] MEDS ORDERED: BISACODYL 10 MG SUPP RECTAL PRN (07:51)
[2020-06-16] MEDS: INSULIN REGULAR 100 UNIT/ML SUBCUT SCH ×4 (07:53→20:56)
[2020-06-16] MEDS: APIXABAN 2.5 MG TABLET PO SCH ×2 (08:18→20:56)
[2020-06-16] MEDS: MULTIVITAMIN (CENTRUM) TABLET PO SCH (08:18)
[2020-06-16] MEDS: PANTOPRAZOLE 40 MG TABLET PO SCH (08:18)
[2020-06-16] MEDS: VANCOMYCIN INJ 1,500 MG in SODIUM CHLORIDE 0.9% 500 ML IV SCH (22:05)
[2020-06-17] MEDS: METOCLOPRAMIDE 5 MG TABLET PO SCH ×2 (00:20→05:22)
[2020-06-17] MEDS: ALBUTEROL/IPRATROPIUM 3 ML NEB RESP TX SCH ×2 (01:18→07:26)
[2020-06-17] MEDS: INSULIN REGULAR 100 UNIT/ML SUBCUT SCH ×2 (08:49→11:33)
[2020-06-17] MEDS: MULTIVITAMIN (CENTRUM) TABLET PO SCH (08:50)
[2020-06-17] MEDS: PANTOPRAZOLE 40 MG TABLET PO SCH (08:50)
[2020-06-17] MEDS: APIXABAN 2.5 MG TABLET PO SCH (08:50)
[2020-06-17 11:45] VITALS: BP 125/71
== END 2020-06-17 12:00 | disposition swing bed (61) | DRG 870 ==
LOC: N.ED 17:15 → SUATTDRO 05-15 01:46 → N.EDINP 05-15 01:46 → N.ICU 05-15 04:33 → N.TELEN 05-20 14:43 → N.ICU 05-28 19:32 → N.TELES 06-03 16:57 → N.4E 06-04 12:14
PROVIDERS: ADMIT Surgery; ATTEND Family Medicine
PROC: [UNRECOGNIZED PROCEDURE] (2020-05-28 11:35)

== ENCOUNTER 2020-08-05 08:58 | Inpatient (IN) ==
[2020-08-05] MEDS ORDERED: SODIUM CHLORIDE 0.9% 1,000 ML IV STA ×2 (09:24→16:51)
[2020-08-05] MEDS ORDERED: DEXTROSE 50% 25 GM/50 ML SYRINGE IV ONE (10:25)
[2020-08-05 10:47] LABS: Bilirubin,Urine Negative (Negative); Blood, Urine Negative (Negative); Glucose,Urine (UA) Negative (Negative); Hyaline Casts,Urine 3 /LPF (0-3); Ketones,Urine Negative (Negative); Mucus,Urine Occasional /LPF (Occasional); Nitrite,Urine Negative (Negative); Protein,Urine Negative; RBC,Urine 2 /HPF (0-4); Urine Appearance Slightly Hazy (Clear); Urine Color Yellow (Yellow); Urine Specific Gravity 1.012 (1.001-1.035); Urine Urobilinogen < 2.0 EU/DL (0.2-1.0); WBC,Urine 80 /HPF (0-6)
[2020-08-05] MEDS ORDERED: PIPERACILLIN/TAZOBACTAM 3,375 MG in SODIUM CHLORIDE 0.9% 100 ML IV STA ×2 (10:48→11:43)
[2020-08-05 12:39] LABS: Basophils # 0.1 10*3/uL (0.0-0.2); Basophils % 0.6 % (0.0-0.8); Eosinophils # 0.1 10*3/uL (0.0-0.87); Eosinophils % 0.8 % (0.00-10.9); Hematocrit 34.8 VOL% (42.0-52.0); Hemoglobin 10.6 GM/DL (14.0-18.0); Immature Granulocytes % 0.8 %; Immature Granulocytes Absolute 0.07 #; Lymphocytes # 1.8 10*3/uL (1.4-4.0); Lymphocytes % 20.8 % (21.2-54.2); Mean Corpuscular HGB Conc 30.5 GM/DL (32-36); Mean Corpuscular Volume 95.6 FL (87-102); Mean Platelet Volume 9.4 FL (9.6-12.0); Platelet Count 320 T/CUMM (130-400); Red Blood Count 3.64 MC/CUMM (3.8-5.5); Red Cell Distribution Width 16.8 % (9.3-17.3); White Blood Count 8.8 T/CUMM (4-12)
[2020-08-05 13:00] LABS: Calcium 9.8 MG/DL (8.5-10.1)
[2020-08-05 13:01] LABS: INR 1.1; PT Patient Result 11.5 SECS (9.8-11.9); Partial Thromboplastin Time 27.3 SECS (23.9-33.8)
[2020-08-05 13:02] LABS: Osmolality,Calculated 284.1 MOS/KG (273-304)
[2020-08-05 13:06] LABS: Bilirubin,Total 1.5 MG/DL (0.2-1.0); Total Protein 9.3 G/DL (6.4-8.3)
[2020-08-05] MEDS ORDERED: MEROPENEM 500 MG in SODIUM CHLORIDE 0.9% 100 ML IV ONE (16:53)
[2020-08-05] MEDS ORDERED: VANCOMYCIN INJ 1,000 MG in SODIUM CHLORIDE 0.9% 250 ML IV STA (16:54)
[2020-08-05] MEDS ORDERED: DEXTROSE 50% 25 GM/50 ML VIAL IV ONE (18:53)
[2020-08-05] MEDS ORDERED: BISACODYL 10 MG SUPP RECTAL PRN (18:59)
[2020-08-05] MEDS ORDERED: ONDANSETRON 4 MG/2 ML VIAL IV PRN (18:59)
[2020-08-05] MEDS ORDERED: GLUCAGON 1 MG VIAL IM PRN (18:59)
[2020-08-05] MEDS ORDERED: SODIUM CHLORIDE 0.9% 1,000 ML IV SCH (18:59)
[2020-08-05] MEDS ORDERED: NOREPINEPHRINE 8 MG in SODIUM CHLORIDE 0.9% 242 ML IV PRN (19:20)
[2020-08-05] MEDS ORDERED: DEXTROSE 5% 1,000 ML IV SCH (19:30)
[2020-08-05] MEDS: DEXTROSE 5% NACL 0.9% 1,000 ML IV SCH (19:30)
[2020-08-05] MEDS: DEXTROSE 50% 25 GM/50 ML VIAL IV PRN ×2 (20:43→23:50)
[2020-08-05] MEDS: INSULIN LISPRO 100 UNIT/ML SUBCUT SCH (21:50)
[2020-08-05] MEDS: VANCOMYCIN INJ 1,250 MG in SODIUM CHLORIDE 0.9% 250 ML IV SCH (21:50)
[2020-08-05] MEDS: FERROUS SULFATE 325 MG TABLET PO SCH (21:50)
[2020-08-05] MEDS: APIXABAN 2.5 MG TABLET PO SCH (21:50)
[2020-08-06] MEDS: MEROPENEM 500 MG in SODIUM CHLORIDE 0.9% 100 ML IV SCH ×3 (02:31→17:39)
[2020-08-06] MEDS: DEXTROSE 5% NACL 0.9% 1,000 ML IV SCH ×3 (03:50→23:34)
[2020-08-06 04:42] LABS: Basophils % 0.6 % (0.0-0.8); Eosinophils # 0.1 10*3/uL (0.0-0.87); Hematocrit 33.2 VOL% (42.0-52.0); Hemoglobin 10.2 GM/DL (14.0-18.0); Immature Granulocytes % 0.7 %; Immature Granulocytes Absolute 0.05 #; Lymphocytes # 1.2 10*3/uL (1.4-4.0); Lymphocytes % 17.6 % (21.2-54.2); Mean Corpuscular HGB Conc 30.7 GM/DL (32-36); Mean Corpuscular Volume 94.1 FL (87-102); Mean Platelet Volume 10.7 FL (9.6-12.0); Monocytes % 8.9 % (1.7-12.7); Neutrophils % 70.2 % (38.7-73.9); Platelet Count 210 T/CUMM (130-400); Red Blood Count 3.53 MC/CUMM (3.8-5.5); Red Cell Distribution Width 16.9 % (9.3-17.3)
[2020-08-06 05:08] LABS: Calcium 9.2 MG/DL (8.5-10.1); Osmolality,Calculated 290.5 MOS/KG (273-304)
[2020-08-06] MEDS: INSULIN LISPRO 100 UNIT/ML SUBCUT SCH ×4 (08:35→23:41)
[2020-08-06] MEDS ORDERED: MEROPENEM 500 MG in SODIUM CHLORIDE 0.9% 100 ML IV ONE (10:30)
[2020-08-06] MEDS: ASPIRIN EC 81 MG TABLET PO SCH (10:38)
[2020-08-06] MEDS: ATORVASTATIN 10 MG TABLET PO SCH (10:38)
[2020-08-06] MEDS: APIXABAN 2.5 MG TABLET PO SCH ×2 (10:38→23:32)
[2020-08-06] MEDS: MULTIVITAMIN (CENTRUM) TABLET PO SCH (10:38)
[2020-08-06] MEDS: FERROUS SULFATE 325 MG TABLET PO SCH ×2 (10:38→23:32)
[2020-08-06] MEDS: TAMSULOSIN 0.4 MG CAPSULE PO SCH (10:38)
[2020-08-06] MEDS: PANTOPRAZOLE 40 MG TABLET PO SCH (10:39)
[2020-08-07] MEDS: MEROPENEM 500 MG in SODIUM CHLORIDE 0.9% 100 ML IV SCH ×3 (04:09→17:20)
[2020-08-07] MEDS: ATORVASTATIN 10 MG TABLET PO SCH (09:41)
[2020-08-07] MEDS: PANTOPRAZOLE 40 MG TABLET PO SCH (09:41)
[2020-08-07] MEDS: MULTIVITAMIN (CENTRUM) TABLET PO SCH (09:41)
[2020-08-07] MEDS: ASPIRIN EC 81 MG TABLET PO SCH (09:41)
[2020-08-07] MEDS: FERROUS SULFATE 325 MG TABLET PO SCH ×2 (09:41→21:35)
[2020-08-07] MEDS: TAMSULOSIN 0.4 MG CAPSULE PO SCH (09:41)
[2020-08-07] MEDS: DEXTROSE 5% NACL 0.9% 1,000 ML IV SCH ×2 (09:44→21:35)
[2020-08-07] MEDS: APIXABAN 2.5 MG TABLET PO SCH ×2 (09:47→21:35)
[2020-08-07] MEDS: INSULIN LISPRO 100 UNIT/ML SUBCUT SCH ×4 (11:03→21:47)
[2020-08-07] MEDS: VANCOMYCIN INJ 1,250 MG in SODIUM CHLORIDE 0.9% 250 ML IV SCH (11:30)
[2020-08-08] MEDS: MEROPENEM 500 MG in SODIUM CHLORIDE 0.9% 100 ML IV SCH ×4 (01:18→22:17)
[2020-08-08 06:12] LABS: Osmolality,Calculated 279.8 MOS/KG (273-304)
[2020-08-08] MEDS: DEXTROSE 5% NACL 0.9% 1,000 ML IV SCH ×2 (06:34→15:49)
[2020-08-08] MEDS: INSULIN LISPRO 100 UNIT/ML SUBCUT SCH ×4 (07:44→21:30)
[2020-08-08] MEDS: ATORVASTATIN 10 MG TABLET PO SCH (09:21)
[2020-08-08] MEDS: MULTIVITAMIN (CENTRUM) TABLET PO SCH (09:21)
[2020-08-08] MEDS: FERROUS SULFATE 325 MG TABLET PO SCH ×2 (09:21→22:16)
[2020-08-08] MEDS: ASPIRIN EC 81 MG TABLET PO SCH (09:21)
[2020-08-08] MEDS: APIXABAN 2.5 MG TABLET PO SCH ×2 (09:21→22:16)
[2020-08-08] MEDS: PANTOPRAZOLE 40 MG TABLET PO SCH (09:21)
[2020-08-08] MEDS: TAMSULOSIN 0.4 MG CAPSULE PO SCH (09:21)
[2020-08-08] MEDS: ACETAMINOPHEN 325 MG TABLET PO PRN (22:16)
[2020-08-09] MEDS: MEROPENEM 500 MG in SODIUM CHLORIDE 0.9% 100 ML IV SCH ×4 (03:24→21:24)
[2020-08-09] MEDS: INSULIN LISPRO 100 UNIT/ML SUBCUT SCH ×4 (08:26→21:16)
[2020-08-09 08:40] LABS: Osmolality,Calculated 277.7 MOS/KG (273-304)
[2020-08-09] MEDS: FERROUS SULFATE 325 MG TABLET PO SCH ×2 (08:53→21:21)
[2020-08-09] MEDS: MULTIVITAMIN (CENTRUM) TABLET PO SCH (08:53)
[2020-08-09] MEDS: ASPIRIN EC 81 MG TABLET PO SCH (08:53)
[2020-08-09] MEDS: ATORVASTATIN 10 MG TABLET PO SCH (08:53)
[2020-08-09] MEDS: PANTOPRAZOLE 40 MG TABLET PO SCH (08:54)
[2020-08-09] MEDS: TAMSULOSIN 0.4 MG CAPSULE PO SCH (08:54)
[2020-08-09] MEDS: APIXABAN 2.5 MG TABLET PO SCH ×2 (08:54→21:21)
[2020-08-09 09:18] LABS: Basophils # 0.1 10*3/uL (0.0-0.2); Basophils % 0.9 % (0.0-0.8); Eosinophils # 0.8 10*3/uL (0.0-0.87); Eosinophils % 9.4 % (0.00-10.9); Hematocrit 33.4 VOL% (42.0-52.0); Hemoglobin 10.2 GM/DL (14.0-18.0); Immature Granulocytes % 0.6 %; Immature Granulocytes Absolute 0.05 #; Lymphocytes # 1.7 10*3/uL (1.4-4.0); Lymphocytes % 21.4 % (21.2-54.2); Mean Corpuscular HGB Conc 30.5 GM/DL (32-36); Mean Corpuscular Volume 95.2 FL (87-102); Mean Platelet Volume 9.8 FL (9.6-12.0); Monocytes % 8.6 % (1.7-12.7); Neutrophils % 59.1 % (38.7-73.9); Platelet Count 267 T/CUMM (130-400); Red Blood Count 3.51 MC/CUMM (3.8-5.5); Red Cell Distribution Width 16.1 % (9.3-17.3)
[2020-08-09] MEDS ORDERED: POTASSIUM CHLORIDE RIDER 10 MEQ in PREMIX 1 EACH IV PRN (16:29)
[2020-08-09] MEDS ORDERED: MAGNESIUM SULF RIDER 4 GM in PREMIX 1 EACH IV PRN (16:29)
[2020-08-09] MEDS ORDERED: MAGNESIUM SULF RIDER 2 GM in PREMIX 1 EACH IV PRN (16:29)
[2020-08-09] MEDS: DEXTROSE 5% NACL 0.9% 1,000 ML IV SCH (21:23)
[2020-08-10] MEDS: MEROPENEM 500 MG in SODIUM CHLORIDE 0.9% 100 ML IV SCH (06:06)
[2020-08-10] MEDS: INSULIN LISPRO 100 UNIT/ML SUBCUT SCH ×4 (09:18→22:00)
[2020-08-10] MEDS: TAMSULOSIN 0.4 MG CAPSULE PO SCH (10:09)
[2020-08-10] MEDS: ASPIRIN EC 81 MG TABLET PO SCH (10:10)
[2020-08-10] MEDS: ATORVASTATIN 10 MG TABLET PO SCH (10:10)
[2020-08-10] MEDS: APIXABAN 2.5 MG TABLET PO SCH ×2 (10:10→22:20)
[2020-08-10] MEDS: MULTIVITAMIN (CENTRUM) TABLET PO SCH (10:10)
[2020-08-10] MEDS: FERROUS SULFATE 325 MG TABLET PO SCH ×2 (10:10→22:20)
[2020-08-10] MEDS: PANTOPRAZOLE 40 MG TABLET PO SCH (10:10)
[2020-08-10] MEDS: DEXTROSE 5% NACL 0.9% 1,000 ML IV SCH ×3 (10:52→10:53)
[2020-08-10] MEDS: ERTAPENEM 1,000 MG in SODIUM CHLORIDE 0.9% 100 ML IV SCH (10:54)
[2020-08-10] MEDS: ACETAMINOPHEN 325 MG TABLET PO PRN (22:20)
[2020-08-11] MEDS: TAMSULOSIN 0.4 MG CAPSULE PO SCH (08:15)
[2020-08-11] MEDS: MULTIVITAMIN (CENTRUM) TABLET PO SCH (08:15)
[2020-08-11] MEDS: FERROUS SULFATE 325 MG TABLET PO SCH ×2 (08:15→21:34)
[2020-08-11] MEDS: PANTOPRAZOLE 40 MG TABLET PO SCH (08:15)
[2020-08-11] MEDS: ASPIRIN EC 81 MG TABLET PO SCH (08:15)
[2020-08-11] MEDS: ERTAPENEM 1,000 MG in SODIUM CHLORIDE 0.9% 100 ML IV SCH (08:15)
[2020-08-11] MEDS: ATORVASTATIN 10 MG TABLET PO SCH (08:15)
[2020-08-11] MEDS: INSULIN LISPRO 100 UNIT/ML SUBCUT SCH ×4 (09:40→21:34)
[2020-08-11] MEDS: APIXABAN 2.5 MG TABLET PO SCH ×2 (11:02→21:34)
[2020-08-12] MEDS: DEXTROSE 5% NACL 0.9% 1,000 ML IV SCH ×2 (07:43→08:44)
[2020-08-12] MEDS: INSULIN LISPRO 100 UNIT/ML SUBCUT SCH ×2 (08:37→11:32)
[2020-08-12] MEDS: ATORVASTATIN 10 MG TABLET PO SCH (08:39)
[2020-08-12] MEDS: ASPIRIN EC 81 MG TABLET PO SCH (08:39)
[2020-08-12] MEDS: MULTIVITAMIN (CENTRUM) TABLET PO SCH (08:39)
[2020-08-12] MEDS: TAMSULOSIN 0.4 MG CAPSULE PO SCH (08:39)
[2020-08-12] MEDS: FERROUS SULFATE 325 MG TABLET PO SCH (08:39)
[2020-08-12] MEDS: APIXABAN 2.5 MG TABLET PO SCH (08:39)
[2020-08-12] MEDS: ERTAPENEM 1,000 MG in SODIUM CHLORIDE 0.9% 100 ML IV SCH (08:40)
[2020-08-12] MEDS: PANTOPRAZOLE 40 MG TABLET PO SCH (10:03)
[2020-08-12 11:16] VITALS: BP 91/50
== END 2020-08-12 15:44 | DRG 871 ==
LOC: EDBD → EDUNIT# → N.ED 08:58 → N.EDINP 16:26 → N.ICU 18:01 → N.3E 08-06 15:59
PROVIDERS: ADMIT Family Medicine; ATTEND Family Medicine

== ENCOUNTER 2021-05-18 10:45 | Inpatient (IN) ==
[2021-05-18] MEDS ORDERED: SODIUM CHLORIDE 0.9% 1,000 ML IV STA (12:19)
[2021-05-18] MEDS ORDERED: ONDANSETRON 4 MG/2 ML VIAL IV PRN (13:09)
[2021-05-18] MEDS ORDERED: GLUCAGON 1 MG VIAL IM PRN (13:09)
[2021-05-18] MEDS ORDERED: MORPHINE 2 MG/1 ML SYRINGE IV PRN (13:09)
[2021-05-18] MEDS ORDERED: DEXTROSE 50% 25 GM/50 ML VIAL IV PRN (13:09)
[2021-05-18] MEDS ORDERED: ACETAMINOPHEN 325 MG TABLET PO PRN (13:09)
[2021-05-18] MEDS ORDERED: BISACODYL 10 MG SUPP RECTAL PRN (13:13)
[2021-05-18 13:58] LABS: Basophils # 0.1 10*3/uL (0.0-0.2); Basophils % 0.6 % (0.0-0.8); Eosinophils # 0.1 10*3/uL (0.0-0.87); Eosinophils % 1.5 % (0.00-10.9); Hematocrit 39.7 VOL% (42.0-52.0); Hemoglobin 12.2 GM/DL (14.0-18.0); Immature Granulocytes % 1.5 %; Immature Granulocytes Absolute 0.14 #; Lymphocytes # 1.5 10*3/uL (1.4-4.0); Lymphocytes % 16.2 % (21.2-54.2); Mean Corpuscular HGB Conc 30.7 GM/DL (32-36); Mean Corpuscular Volume 93.6 FL (87-102); Mean Platelet Volume 9.9 FL (9.6-12.0); Monocytes % 6.7 % (1.7-12.7); Neutrophils % 73.5 % (38.7-73.9); Platelet Count 207 T/CUMM (130-400); Red Blood Count 4.24 MC/CUMM (3.8-5.5); Red Cell Distribution Width 15.2 % (9.3-17.3); White Blood Count 9.4 T/CUMM (4-12)
[2021-05-18 14:09] LABS: PT Patient Result 10.9 SECS (10.5-12.0); Partial Thromboplastin Time 24.1 SECS (23.9-33.8)
[2021-05-18 14:13] LABS: Alanine Aminotransferase 22 U/L (16-61); Albumin 3.5 G/DL (3.4-5.0); Alkaline Phosphatase 44 U/L (45-117); Aspartate Amino Transferase 14 U/L (0-37); Bilirubin,Total < 0.39 MG/DL (0.20-1.00); Blood Urea Nitrogen 34 MG/DL (7-18); Carbon Dioxide 25 MMOL/L (21-32); Estimated Glom Filtration Rate 50 ML/MIN; Glucose 201 MG/DL (74-106); Osmolality,Calculated 292.4 MOS/KG (273-304); Osmolality,Calculated 296.1 MOS/KG (273-304); Potassium 4.9 MMOL/L (3.5-5.1); Potassium 5.3 MMOL/L (3.5-5.1); Sodium 142 MMOL/L (136-145)
[2021-05-18] MEDS: SODIUM CHLORIDE 0.9% 1,000 ML IV SCH (16:20)
[2021-05-18] MEDS: INSULIN LISPRO 100 UNIT/ML SUBCUT SCH ×2 (16:32→21:57)
[2021-05-18 20:01] LABS: Bilirubin,Urine Negative (Negative); Blood, Urine Large mg/dL (Negative); Glucose,Urine (UA) Negative (Negative); Ketones,Urine Negative (Negative); Nitrite,Urine Negative (Negative); Protein,Urine 100 MG/DL; RBC,Urine 11917 /HPF (0-4); Urine Appearance CLOUDY (Clear); Urine Color Red (Yellow); Urine Specific Gravity 1.005 (1.001-1.035); Urine Urobilinogen < 2.0 EU/DL (0.2-1.0)
[2021-05-18] MEDS: OXYBUTYNIN XL 15 MG TABLET PO SCH (21:56)
[2021-05-18] MEDS: FERROUS SULFATE 325 MG TABLET PO SCH (21:57)
[2021-05-18] MEDS: DOCUSATE SODIUM 100 MG CAPSULE PO SCH (21:57)
[2021-05-19 04:58] LABS: Basophils % 0.5 % (0.0-0.8); Eosinophils # 0.4 10*3/uL (0.0-0.87); Eosinophils % 4.9 % (0.00-10.9); Hematocrit 34.4 VOL% (42.0-52.0); Hemoglobin 10.8 GM/DL (14.0-18.0); Immature Granulocytes % 1.1 %; Lymphocytes # 1.6 10*3/uL (1.4-4.0); Lymphocytes % 17.6 % (21.2-54.2); Mean Corpuscular HGB Conc 31.4 GM/DL (32-36); Mean Corpuscular Volume 92.5 FL (87-102); Mean Platelet Volume 10.2 FL (9.6-12.0); Monocytes % 8.8 % (1.7-12.7); Neutrophils % 67.1 % (38.7-73.9); Platelet Count 198 T/CUMM (130-400); Red Blood Count 3.72 MC/CUMM (3.8-5.5); Red Cell Distribution Width 15.2 % (9.3-17.3); White Blood Count 8.9 T/CUMM (4-12)
[2021-05-19 05:28] LABS: Calcium 8.4 MG/DL (8.5-10.1); Osmolality,Calculated 285.4 MOS/KG (273-304); Potassium 4.5 MMOL/L (3.5-5.1)
[2021-05-19] MEDS: SODIUM CHLORIDE 0.9% 1,000 ML IV SCH ×2 (08:33→21:50)
[2021-05-19] MEDS: INSULIN LISPRO 100 UNIT/ML SUBCUT SCH ×4 (08:33→23:03)
[2021-05-19] MEDS: TAMSULOSIN 0.4 MG CAPSULE PO SCH (08:36)
[2021-05-19] MEDS: carvediloL 6.25 MG TABLET PO SCH (08:36)
[2021-05-19] MEDS: FERROUS SULFATE 325 MG TABLET PO SCH ×2 (08:36→21:50)
[2021-05-19] MEDS: PANTOPRAZOLE 40 MG TABLET PO SCH (08:36)
[2021-05-19] MEDS: GLIMEPIRIDE 2 MG TABLET PO SCH (08:36)
[2021-05-19] MEDS: DOCUSATE SODIUM 100 MG CAPSULE PO SCH ×2 (08:36→21:49)
[2021-05-19] MEDS: POTASSIUM CHLORIDE 20 MEQ TABLET PO SCH (08:38)
[2021-05-19] MEDS: ATORVASTATIN 10 MG TABLET PO SCH (08:38)
[2021-05-19] MEDS: cefTRIAXone 1,000 MG in SODIUM CHLORIDE 0.9% 100 ML IV SCH (11:46)
[2021-05-19] MEDS: OXYBUTYNIN XL 15 MG TABLET PO SCH (18:08)
[2021-05-20] MEDS: SODIUM CHLORIDE 0.9% 1,000 ML IV SCH (07:29)
[2021-05-20] MEDS: INSULIN LISPRO 100 UNIT/ML SUBCUT SCH ×4 (08:02→21:19)
[2021-05-20] MEDS: GLIMEPIRIDE 2 MG TABLET PO SCH (08:21)
[2021-05-20] MEDS: PANTOPRAZOLE 40 MG TABLET PO SCH (08:23)
[2021-05-20] MEDS: TAMSULOSIN 0.4 MG CAPSULE PO SCH (08:23)
[2021-05-20] MEDS: DOCUSATE SODIUM 100 MG CAPSULE PO SCH ×2 (08:23→21:21)
[2021-05-20] MEDS: ATORVASTATIN 10 MG TABLET PO SCH (08:23)
[2021-05-20] MEDS: FERROUS SULFATE 325 MG TABLET PO SCH ×2 (08:23→21:21)
[2021-05-20] MEDS: POTASSIUM CHLORIDE 20 MEQ TABLET PO SCH (08:23)
[2021-05-20] MEDS: carvediloL 6.25 MG TABLET PO SCH (08:23)
[2021-05-20] MEDS: cefTRIAXone 1,000 MG in SODIUM CHLORIDE 0.9% 100 ML IV SCH (10:13)
[2021-05-20] MEDS: OXYBUTYNIN XL 15 MG TABLET PO SCH (17:37)
[2021-05-21] MEDS ORDERED: LIDOCAINE 2% TOP JELLY 20 ML VIAL INTRAURETH ONE (06:08)
[2021-05-21 06:28] LABS: Basophils # 0.1 10*3/uL (0.0-0.2); Basophils % 0.7 % (0.0-0.8); Eosinophils # 0.5 10*3/uL (0.0-0.87); Eosinophils % 6.8 % (0.00-10.9); Hematocrit 34.9 VOL% (42.0-52.0); Hemoglobin 11.2 GM/DL (14.0-18.0); Immature Granulocytes % 2.4 %; Immature Granulocytes Absolute 0.18 #; Lymphocytes # 1.4 10*3/uL (1.4-4.0); Lymphocytes % 19.1 % (21.2-54.2); Mean Corpuscular HGB Conc 32.1 GM/DL (32-36); Mean Corpuscular Volume 91.6 FL (87-102); Mean Platelet Volume 9.7 FL (9.6-12.0); Monocytes % 6.2 % (1.7-12.7); Neutrophils % 64.8 % (38.7-73.9); Platelet Count 195 T/CUMM (130-400); Red Blood Count 3.81 MC/CUMM (3.8-5.5); Red Cell Distribution Width 15.2 % (9.3-17.3); White Blood Count 7.4 T/CUMM (4-12)
[2021-05-21 06:39] LABS: Calcium 8.7 MG/DL (8.5-10.1); Osmolality,Calculated 283.7 MOS/KG (273-304); Potassium 4.7 MMOL/L (3.5-5.1)
[2021-05-21] MEDS: INSULIN LISPRO 100 UNIT/ML SUBCUT SCH ×2 (09:12→13:31)
[2021-05-21] MEDS: DOCUSATE SODIUM 100 MG CAPSULE PO SCH (09:14)
[2021-05-21] MEDS: POTASSIUM CHLORIDE 20 MEQ TABLET PO SCH (09:14)
[2021-05-21] MEDS: FERROUS SULFATE 325 MG TABLET PO SCH (09:14)
[2021-05-21] MEDS: carvediloL 6.25 MG TABLET PO SCH (09:15)
[2021-05-21] MEDS: ATORVASTATIN 10 MG TABLET PO SCH (09:15)
[2021-05-21] MEDS: TAMSULOSIN 0.4 MG CAPSULE PO SCH (09:15)
[2021-05-21] MEDS: GLIMEPIRIDE 2 MG TABLET PO SCH (09:15)
[2021-05-21] MEDS: cefTRIAXone 1,000 MG in SODIUM CHLORIDE 0.9% 100 ML IV SCH (09:15)
[2021-05-21] MEDS: PANTOPRAZOLE 40 MG TABLET PO SCH (09:15)
[2021-05-21 14:11] VITALS: BP 138/55
== END 2021-05-21 14:47 | disposition home or self-care (01) | DRG 813 ==
LOC: N.ED 10:45 → N.EDINP 13:09 → N.4E 21:09
PROVIDERS: ADMIT Family Medicine; ATTEND Family Medicine

== ENCOUNTER 2021-12-08 17:32 | Inpatient (IN) ==
[2021-12-08] MEDS ORDERED: cefTRIAXone 1,000 MG in SODIUM CHLORIDE 0.9% 100 ML IV STA (22:58)
[2021-12-08] MEDS ORDERED: ALBUTEROL/IPRATROPIUM 3 ML NEB RESP TX STA (22:58)
[2021-12-08] MEDS ORDERED: ONDANSETRON 4 MG/2 ML VIAL IV STA (22:58)
[2021-12-08] MEDS ORDERED: methylPREDNISolone SOD SUC 125 MG/2 ML VIAL IV STA (22:58)
[2021-12-08 23:36] LABS: Basophils % 0.2 % (0.0-0.8); Eosinophils # 0.1 10*3/uL (0.0-0.87); Eosinophils % 0.4 % (0.00-10.9); Hematocrit 34.4 VOL% (42.0-52.0); Hemoglobin 11.1 GM/DL (14.0-18.0); Immature Granulocytes % 4.4 %; Immature Granulocytes Absolute 0.54 #; Lymphocytes # 1.3 10*3/uL (1.4-4.0); Lymphocytes % 10.8 % (21.2-54.2); Mean Corpuscular HGB Conc 32.3 GM/DL (32-36); Mean Corpuscular Volume 92.2 FL (87-102); Monocytes % 9.4 % (1.7-12.7); NRBC # 0.02 10*3/uL; Neutrophils % 74.8 % (38.7-73.9); Platelet Count 123 T/CUMM (130-400); Red Blood Count 3.73 MC/CUMM (3.8-5.5); Red Cell Distribution Width 15.2 % (9.3-17.3); White Blood Count 12.4 T/CUMM (4-12)
[2021-12-09 00:01] LABS: Lymphocytes 13 % (20-55); Platelet Estimate Adequate; Segmented Neutrophils 79 % (50-85); Total Cells Counted 100
[2021-12-09 00:09] LABS: Albumin 2.4 G/DL (3.4-5.0); Bilirubin,Total 1.3 MG/DL (0.20-1.00); Osmolality,Calculated 296.4 MOS/KG (273-304); Potassium 3.9 MMOL/L (3.5-5.1); Total Protein 7.5 G/DL (6.4-8.2)
[2021-12-09] MEDS ORDERED: cefTRIAXone 1,000 MG VIAL IM STA (00:27)
[2021-12-09] MEDS ORDERED: methylPREDNISolone SOD SUC 125 MG/2 ML VIAL IM STA (00:27)
[2021-12-09] MEDS ORDERED: ACETAMINOPHEN 325 MG TABLET PO PRN ×2 (02:56→08:04)
[2021-12-09] MEDS ORDERED: MORPHINE 2 MG/1 ML SYRINGE IV PRN (02:56)
[2021-12-09] MEDS ORDERED: DEXTROSE 10% 250 ML BAG IV PRN (02:56)
[2021-12-09] MEDS ORDERED: ONDANSETRON 4 MG/2 ML VIAL IV PRN (02:56)
[2021-12-09] MEDS ORDERED: GLUCAGON 1 MG VIAL IM PRN (02:56)
[2021-12-09 03:31] LABS: Bacteria,Urine Moderate /HPF (Few); Bilirubin,Urine Negative (Negative); Blood, Urine Moderate mg/dL (Negative); Glucose,Urine (UA) Negative (Negative); Ketones,Urine Negative (Negative); Mucus,Urine Occasional /LPF (Occasional); Nitrite,Urine Positive (Negative); Protein,Urine 100 MG/DL; RBC,Urine 20 /HPF (0-4); Squamous Epithelial Cell,Urine Occasional /HPF (0-10); Urine Appearance CLOUDY (Clear); Urine Color Yellow (Yellow); Urine Specific Gravity 1.011 (1.001-1.035)
[2021-12-09] MEDS: ALBUTEROL/IPRATROPIUM 3 ML NEB RESP TX SCH ×5 (03:53→18:27)
[2021-12-09] MEDS: SODIUM CHLORIDE 0.9% 1,000 ML IV SCH ×4 (05:51→18:08)
[2021-12-09] MEDS ORDERED: ENOXAPARIN 40 MG/0.4 ML SYRINGE SUBCUT SCH (06:00)
[2021-12-09 06:12] LABS: Basophils % 0.3 % (0.0-0.8); Hematocrit 34.8 VOL% (42.0-52.0); Hemoglobin 11.1 GM/DL (14.0-18.0); Immature Granulocytes % 2.9 %; Lymphocytes # 1.2 10*3/uL (1.4-4.0); Lymphocytes % 8.6 % (21.2-54.2); Mean Corpuscular HGB Conc 31.9 GM/DL (32-36); Mean Corpuscular Volume 93.5 FL (87-102); Mean Platelet Volume 12.2 FL (9.6-12.0); Monocytes % 3.5 % (1.7-12.7); Neutrophils % 84.7 % (38.7-73.9); Platelet Count 150 T/CUMM (130-400); Red Blood Count 3.72 MC/CUMM (3.8-5.5); Red Cell Distribution Width 15.3 % (9.3-17.3); White Blood Count 13.8 T/CUMM (4-12)
[2021-12-09] MEDS: methylPREDNISolone SOD SUC 40 MG/1 ML VIAL IV SCH ×2 (06:14→17:36)
[2021-12-09 06:31] LABS: Risk Ratio 5.4; VLDL Cholesterol 19.8 MG/DL
[2021-12-09 06:41] LABS: Band Neutrophils 8 % (0-10); Hypochromia 1+; Lymphocytes 10 % (20-55); Myelocytes 1 %; Segmented Neutrophils 76 % (50-85); Total Cells Counted 100
[2021-12-09] MEDS: INSULIN REGULAR 100 UNIT/ML SUBCUT SCH ×3 (06:41→17:32)
[2021-12-09 06:42] LABS: Microcytosis Slight; Platelet Estimate Adequate; Target Cells Slight
[2021-12-09 06:45] LABS: Albumin 2.2 G/DL (3.4-5.0); Bilirubin,Total 0.9 MG/DL (0.20-1.00); Calcium 8.3 MG/DL (8.5-10.1); Osmolality,Calculated 307.8 MOS/KG (273-304); Potassium 3.7 MMOL/L (3.5-5.1); Total Protein 7.1 G/DL (6.4-8.2)
[2021-12-09] MEDS ORDERED: BISACODYL 10 MG SUPP RECTAL PRN (08:04)
[2021-12-09] MEDS: DOCUSATE SODIUM 100 MG CAPSULE PO SCH ×3 (08:14→21:41)
[2021-12-09] MEDS: ASPIRIN EC 81 MG TABLET PO SCH ×2 (08:14→08:31)
[2021-12-09] MEDS: PANTOPRAZOLE 40 MG TABLET PO SCH (08:14)
[2021-12-09] MEDS: cefTRIAXone 1,000 MG in SODIUM CHLORIDE 0.9% 100 ML IV SCH (08:14)
[2021-12-09] MEDS: POTASSIUM CHLORIDE 20 MEQ TABLET PO SCH (08:37)
[2021-12-09] MEDS: MULTIVITAMIN (CENTRUM) TABLET PO SCH (08:37)
[2021-12-09] MEDS: ATORVASTATIN 10 MG TABLET PO SCH (08:37)
[2021-12-09] MEDS: APIXABAN 2.5 MG TABLET PO SCH ×2 (08:37→21:38)
[2021-12-09] MEDS: TAMSULOSIN 0.4 MG CAPSULE PO SCH ×2 (08:37→21:38)
[2021-12-09] MEDS: carvediloL 6.25 MG TABLET PO SCH (08:37)
[2021-12-09] MEDS: FERROUS SULFATE 325 MG TABLET PO SCH ×2 (08:37→21:38)
[2021-12-09] MEDS ORDERED: OXYBUTYNIN XL 15 MG TABLET PO SCH (18:00)
[2021-12-10] MEDS: ALBUTEROL/IPRATROPIUM 3 ML NEB RESP TX SCH ×7 (01:17→23:10)
[2021-12-10] MEDS: SODIUM CHLORIDE 0.9% 1,000 ML IV SCH ×3 (01:41→18:09)
[2021-12-10] MEDS: INSULIN REGULAR 100 UNIT/ML SUBCUT SCH ×4 (05:17→18:08)
[2021-12-10] MEDS: methylPREDNISolone SOD SUC 40 MG/1 ML VIAL IV SCH ×2 (06:37→18:06)
[2021-12-10] MEDS: MULTIVITAMIN (CENTRUM) TABLET PO SCH (09:46)
[2021-12-10] MEDS: FERROUS SULFATE 325 MG TABLET PO SCH ×2 (09:47→21:00)
[2021-12-10] MEDS: GLIMEPIRIDE 2 MG TABLET PO SCH (09:47)
[2021-12-10] MEDS: ASPIRIN EC 81 MG TABLET PO SCH ×2 (09:47→10:53)
[2021-12-10] MEDS: DUTASTERIDE 0.5 MG CAPSULE PO SCH (09:48)
[2021-12-10] MEDS: TAMSULOSIN 0.4 MG CAPSULE PO SCH ×2 (09:48→21:00)
[2021-12-10] MEDS: APIXABAN 2.5 MG TABLET PO SCH ×2 (09:48→20:59)
[2021-12-10] MEDS: ATORVASTATIN 10 MG TABLET PO SCH (09:48)
[2021-12-10] MEDS: PANTOPRAZOLE 40 MG TABLET PO SCH (09:49)
[2021-12-10] MEDS: POTASSIUM CHLORIDE 20 MEQ TABLET PO SCH (09:49)
[2021-12-10] MEDS: carvediloL 6.25 MG TABLET PO SCH (09:49)
[2021-12-10 10:35] LABS: Calcium 8.5 MG/DL (8.5-10.1); Osmolality,Calculated 301.3 MOS/KG (273-304)
[2021-12-10] MEDS: DOCUSATE SODIUM 100 MG CAPSULE PO SCH ×3 (10:53→20:59)
[2021-12-10] MEDS: cefTRIAXone 1,000 MG in SODIUM CHLORIDE 0.9% 100 ML IV SCH (10:59)
[2021-12-11] MEDS: INSULIN REGULAR 100 UNIT/ML SUBCUT SCH ×5 (00:40→23:26)
[2021-12-11] MEDS: SODIUM CHLORIDE 0.9% 1,000 ML IV SCH ×4 (03:00→20:48)
[2021-12-11] MEDS: ALBUTEROL/IPRATROPIUM 3 ML NEB RESP TX SCH ×6 (03:12→23:40)
[2021-12-11] MEDS: methylPREDNISolone SOD SUC 40 MG/1 ML VIAL IV SCH ×2 (05:50→20:54)
[2021-12-11] MEDS: TAMSULOSIN 0.4 MG CAPSULE PO SCH ×2 (09:20→20:48)
[2021-12-11] MEDS: ASPIRIN EC 81 MG TABLET PO SCH ×2 (09:20→10:28)
[2021-12-11] MEDS: MULTIVITAMIN (CENTRUM) TABLET PO SCH (09:20)
[2021-12-11] MEDS: ATORVASTATIN 10 MG TABLET PO SCH (09:21)
[2021-12-11] MEDS: PANTOPRAZOLE 40 MG TABLET PO SCH (09:21)
[2021-12-11] MEDS: GLIMEPIRIDE 2 MG TABLET PO SCH (09:21)
[2021-12-11] MEDS: POTASSIUM CHLORIDE 20 MEQ TABLET PO SCH (09:22)
[2021-12-11] MEDS: carvediloL 6.25 MG TABLET PO SCH (09:22)
[2021-12-11] MEDS: FERROUS SULFATE 325 MG TABLET PO SCH ×2 (09:22→20:48)
[2021-12-11] MEDS: DUTASTERIDE 0.5 MG CAPSULE PO SCH (09:22)
[2021-12-11] MEDS: APIXABAN 2.5 MG TABLET PO SCH ×2 (09:23→20:48)
[2021-12-11] MEDS: DOCUSATE SODIUM 100 MG CAPSULE PO SCH ×3 (09:23→20:48)
[2021-12-11] MEDS: cefTRIAXone 1,000 MG in SODIUM CHLORIDE 0.9% 100 ML IV SCH (10:26)
[2021-12-11] MEDS ORDERED: MINERAL OIL 30 ML UDCUP PO ONE (14:59)
[2021-12-12] MEDS: SODIUM CHLORIDE 0.9% 1,000 ML IV SCH ×3 (02:02→18:38)
[2021-12-12] MEDS: ALBUTEROL/IPRATROPIUM 3 ML NEB RESP TX SCH ×5 (03:10→19:42)
[2021-12-12] MEDS: INSULIN REGULAR 100 UNIT/ML SUBCUT SCH ×4 (05:40→23:30)
[2021-12-12] MEDS: methylPREDNISolone SOD SUC 40 MG/1 ML VIAL IV SCH ×2 (05:42→18:20)
[2021-12-12 06:00] LABS: Basophils % 0.3 % (0.0-0.8); Hematocrit 36.6 VOL% (42.0-52.0); Hemoglobin 11.5 GM/DL (14.0-18.0); Immature Granulocytes % 5.1 %; Immature Granulocytes Absolute 0.68 #; Lymphocytes # 0.9 10*3/uL (1.4-4.0); Lymphocytes % 6.4 % (21.2-54.2); Mean Corpuscular HGB Conc 31.4 GM/DL (32-36); Mean Corpuscular Volume 93.6 FL (87-102); Mean Platelet Volume 10.5 FL (9.6-12.0); Monocytes % 3.1 % (1.7-12.7); Neutrophils % 85.1 % (38.7-73.9); Platelet Count 239 T/CUMM (130-400); Red Blood Count 3.91 MC/CUMM (3.8-5.5); Red Cell Distribution Width 15.2 % (9.3-17.3); White Blood Count 13.4 T/CUMM (4-12)
[2021-12-12 06:15] LABS: Calcium 8.1 MG/DL (8.5-10.1); Osmolality,Calculated 288.8 MOS/KG (273-304); Potassium 4.5 MMOL/L (3.5-5.1)
[2021-12-12 07:42] LABS: Band Neutrophils 5 % (0-10); Lymphocytes 9 % (20-55); Platelet Estimate Normal; Segmented Neutrophils 83 % (50-85); Total Cells Counted 100
[2021-12-12 07:43] LABS: Anisocytosis 1+; Macrocytosis 1+
[2021-12-12] MEDS: TAMSULOSIN 0.4 MG CAPSULE PO SCH ×2 (09:09→20:22)
[2021-12-12] MEDS: cefTRIAXone 1,000 MG in SODIUM CHLORIDE 0.9% 100 ML IV SCH (09:09)
[2021-12-12] MEDS: ASPIRIN EC 81 MG TABLET PO SCH (09:09)
[2021-12-12] MEDS: GLIMEPIRIDE 2 MG TABLET PO SCH (09:10)
[2021-12-12] MEDS: APIXABAN 2.5 MG TABLET PO SCH ×2 (09:10→20:22)
[2021-12-12] MEDS: PANTOPRAZOLE 40 MG TABLET PO SCH (09:10)
[2021-12-12] MEDS: POTASSIUM CHLORIDE 20 MEQ TABLET PO SCH (09:10)
[2021-12-12] MEDS: FERROUS SULFATE 325 MG TABLET PO SCH ×2 (09:10→20:23)
[2021-12-12] MEDS: carvediloL 6.25 MG TABLET PO SCH (09:10)
[2021-12-12] MEDS: MULTIVITAMIN (CENTRUM) TABLET PO SCH (09:10)
[2021-12-12] MEDS: ATORVASTATIN 10 MG TABLET PO SCH (09:10)
[2021-12-12] MEDS: DOCUSATE SODIUM 100 MG CAPSULE PO SCH ×2 (09:10→20:22)
[2021-12-12] MEDS: DUTASTERIDE 0.5 MG CAPSULE PO SCH (09:11)
[2021-12-12] MEDS: SODIUM BICARBONATE 650 MG TABLET PO SCH (20:22)
[2021-12-13] MEDS: ALBUTEROL/IPRATROPIUM 3 ML NEB RESP TX SCH ×5 (01:14→19:40)
[2021-12-13] MEDS: SODIUM CHLORIDE 0.9% 1,000 ML IV SCH ×3 (01:15→21:19)
[2021-12-13] MEDS: methylPREDNISolone SOD SUC 40 MG/1 ML VIAL IV SCH ×2 (06:10→17:35)
[2021-12-13] MEDS: INSULIN REGULAR 100 UNIT/ML SUBCUT SCH ×3 (06:33→17:33)
[2021-12-13] MEDS: carvediloL 6.25 MG TABLET PO SCH (10:08)
[2021-12-13] MEDS: APIXABAN 2.5 MG TABLET PO SCH ×2 (10:08→21:19)
[2021-12-13] MEDS: MULTIVITAMIN (CENTRUM) TABLET PO SCH (10:08)
[2021-12-13] MEDS: ASPIRIN EC 81 MG TABLET PO SCH (10:08)
[2021-12-13] MEDS: GLIMEPIRIDE 2 MG TABLET PO SCH (10:08)
[2021-12-13] MEDS: SODIUM BICARBONATE 650 MG TABLET PO SCH ×2 (10:08→21:19)
[2021-12-13] MEDS: DOCUSATE SODIUM 100 MG CAPSULE PO SCH ×2 (10:09→21:19)
[2021-12-13] MEDS: FERROUS SULFATE 325 MG TABLET PO SCH ×2 (10:09→21:19)
[2021-12-13] MEDS: TAMSULOSIN 0.4 MG CAPSULE PO SCH ×2 (10:09→21:19)
[2021-12-13] MEDS: POTASSIUM CHLORIDE 20 MEQ TABLET PO SCH (10:09)
[2021-12-13] MEDS: DUTASTERIDE 0.5 MG CAPSULE PO SCH (10:09)
[2021-12-13] MEDS: PANTOPRAZOLE 40 MG TABLET PO SCH (10:09)
[2021-12-13] MEDS: ATORVASTATIN 10 MG TABLET PO SCH (10:09)
[2021-12-13] MEDS: cefTRIAXone 1,000 MG in SODIUM CHLORIDE 0.9% 100 ML IV SCH (10:10)
[2021-12-14] MEDS: ALBUTEROL/IPRATROPIUM 3 ML NEB RESP TX SCH ×3 (00:38→06:55)
[2021-12-14] MEDS: INSULIN REGULAR 100 UNIT/ML SUBCUT SCH ×3 (01:48→13:43)
[2021-12-14 06:36] VITALS: BP 157/82
[2021-12-14] MEDS: SODIUM CHLORIDE 0.9% 1,000 ML IV SCH ×2 (09:44→13:43)
[2021-12-14] MEDS: methylPREDNISolone SOD SUC 40 MG/1 ML VIAL IV SCH (09:45)
[2021-12-14] MEDS: SODIUM BICARBONATE 650 MG TABLET PO SCH (09:46)
[2021-12-14] MEDS: DUTASTERIDE 0.5 MG CAPSULE PO SCH (09:46)
[2021-12-14] MEDS: POTASSIUM CHLORIDE 20 MEQ TABLET PO SCH (09:47)
[2021-12-14] MEDS: PANTOPRAZOLE 40 MG TABLET PO SCH (09:47)
[2021-12-14] MEDS: DOCUSATE SODIUM 100 MG CAPSULE PO SCH (09:47)
[2021-12-14] MEDS: TAMSULOSIN 0.4 MG CAPSULE PO SCH (09:47)
[2021-12-14] MEDS: ATORVASTATIN 10 MG TABLET PO SCH (09:48)
[2021-12-14] MEDS: ASPIRIN EC 81 MG TABLET PO SCH (09:48)
[2021-12-14] MEDS: GLIMEPIRIDE 2 MG TABLET PO SCH (09:48)
[2021-12-14] MEDS: FERROUS SULFATE 325 MG TABLET PO SCH (09:48)
[2021-12-14] MEDS: APIXABAN 2.5 MG TABLET PO SCH (09:48)
[2021-12-14] MEDS: MULTIVITAMIN (CENTRUM) TABLET PO SCH (09:48)
[2021-12-14] MEDS: cefTRIAXone 1,000 MG in SODIUM CHLORIDE 0.9% 100 ML IV SCH (09:49)
[2021-12-14] MEDS: carvediloL 6.25 MG TABLET PO SCH (09:49)
== END 2021-12-14 12:05 | disposition home or self-care (01) | DRG 690 ==
LOC: N.ED 17:32 → N.EDINP 17:32 → N.ICU 12-09 05:30 → N.TELES 12-09 16:50
PROVIDERS: ADMIT Family Medicine; ATTEND Family Medicine